=== PATIENT | male | born 1965 | race Caucasian/White ===

== ENCOUNTER 2016-11-17 16:41 | Emergency (ER) | payer MEDICARE, MEDICAID ==
[2016-11-17] MEDS ORDERED: Acetaminophen 500 MG Tab PO ONE (17:02)
[2016-11-17] MEDS ORDERED: Sodium Chloride 0.9% 1,000 ML IV ONE (17:02)
[2016-11-17] MEDS ORDERED: Sodium Chloride 0.9% 2.5 ML Syringe FLUSH PRN (17:02)
[2016-11-17] MEDS ORDERED: Sodium Chloride 0.9% 10 ML Syringe FLUSH PRN (17:02)
--- NOTE | 2016-11-17 17:04 | EDM.PDOC ---
ED HPI GENERAL MEDICAL PROBLEM - General Chief Complaint: Behavioral/Psych Stated Complaint: MENTAL/BEHAVIORAL ISSUES Time Seen by Provider: 11/17/16 16:54 - History of Present Illness INITIAL COMMENTS - FREE TEXT/NARRATIVE: HISTORY AND PHYSICAL: History of present illness: The patient is a 51-year-old male with a history of eld-kmyzryc-lbjzithqj diabetes hypercholesterolemia alcohol use schizophrenia who follows both in the clinic as well as with [facility] and presents today with feeling shaky, he feels like his head is spinning and he has sinus congestion and drainage, and he has a sore throat. The patient states he has had no chest pain shortness of breath abdominal pain vomiting or diarrhea and does admit that he does not hydrate 3 well and drinks mostly caffeinated products. The patient initially told triage she was concerned that one of his medications was causing him to feel like this because it was increased one month ago. He had been on the medication already and the dose was just adjusted. He said the symptoms just started 2 days ago. He says that when he blows his nose clear and white comes out and he feels like he has sinus pressure and frontal pressure. He has no earache and he feels like his glands are swollen in his neck. Patient has taken 2 baby aspirin prior to coming here and has not taken any other decongestants or use any meor-rbg-[id number] preps. The patient smokes cigarettes and has a history of alcohol use but has not had a drink in 2 weeks. Review of systems: As per history of present illness and below otherwise all systems reviewed and negative. Past medical history: As per history of present illness and as reviewed below otherwise noncontributory. Surgical history: As per history of present illness and as reviewed below otherwise noncontributory. Social history: No reported history of drug or alcohol abuse. Family history: As per history of present illness and as reviewed below otherwise noncontributory. Physical exam: General: Well-developed well-nourished man who smells of cigarette smoke and has poor dentition but is speaking clearly without breathlessness but has a nasal quality to his voice. His vital signs in triage have been noted by me HEENT: Atraumatic, normocephalic, pupils reactive, negative for conjunctival pallor or scleral icterus, mucous membranes tacky, throat clear of exudates but the posterior oropharynx exhibits some edema bilaterally with uvula midline and the erythema, the patient has cervical adenopathy anteriorly which is tender but no posterior adenopathy or nuchal rigidity, turbinates are boggy bilaterally but there is no overt sinus tenderness on palpation,, neck supple, nontender, trachea midline. Lungs: Clear to auscultation with occasional coarse breath sounds at the bases but no work or breathing, breath sounds equal bilaterally, chest nontender. Heart: S1S2, regular rhythm and tachycardic rate on my evaluation, negative for clicks, rubs, or JVD. Abdomen: Soft, nondistended, nontender. Negative for masses or hepatosplenomegaly. NABS Genitourinary: Deferred. Rectal: Deferred. Extremities: Atraumatic, negative for cords or calf pain. Neurovascular unremarkable. Neuro: Awake, alert, oriented. Cranial nerves II through XII unremarkable. Cerebellum unremarkable. Motor and sensory unremarkable throughout. Exam nonfocal. Patient is not exhibiting any signs of tremulousness Diagnostics: CBC CMP influenza rapid strep chest x-ray Therapeutics: Tylenol IV fluids Testing results were discussed with the patient including his influenza A. status and she will be given Tamiflu for home. I encouraged him to push hydration, avoid caffeinated products or at least reduce them, continue his home medications, take Tylenol/ibuprofen for fever. Repeat vitals were performed by the nurse and have been reviewed by me. Impression: Influenza A Definitive disposition and diagnosis as appropriate pending reevaluation and review of above. Headache Pain Score (Numeric/FACES): 10 - Related Data Allergies Allergy/AdvReac Type Severity Reaction Status Date / Time No Known Allergies Allergy Verified 11/17/16 16:55 Home Meds: Home Meds Aspirin [Adult Low Dose Aspirin EC] 81 mg PO BID 12/30/15 [History] Cholecalciferol (Vitamin D3) [Vitamin D3] 1,000 unit PO DAILY 12/30/15 [History] Glimepiride [Amaryl] 4 mg PO BID 12/30/15 [History] LORazepam [Ativan] 1 mg PO ASDIRECTED PRN 12/30/15 [History] Loratadine [Claritin] 10 mg PO DAILY 12/30/15 [History] Losartan Potassium [Cozaar] 50 mg PO DAILY 12/30/15 [History] Meloxicam 15 mg PO BEDTIME 12/30/15 [History] Mirtazapine [Remeron] 60 mg PO BEDTIME 12/30/15 [History] [place]-3/DHA/Epa/Fish Oil [Fish Oil] 1,200 mg PO DAILY 12/30/15 [History] SitaGLIPtin [Januvia] 100 mg PO DAILY 12/30/15 [History] atorvaSTATin Calcium [Atorvastatin Calcium] 10 mg PO DAILY 12/30/15 [History] metFORMIN HCl [Metformin HCl] 1,000 mg PO BID 12/30/15 [History] Gabapentin [Neurontin] 300 mg PO TID 11/17/16 [History] OLANZapine [ZyPREXA] 5 mg PO BID 11/17/16 [History] Past Medical History HEENT History: Reports: None Cardiovascular History: Reports: High cholesterol, Hypertension Respiratory History: Reports: None Gastrointestinal History: Reports: None Genitourinary History: Reports: None Musculoskeletal History: Reports: Arthritis Neurological History: Reports: None Psychiatric History: Reports: Anxiety, Depression, Mood swings, Psych Hospitalization(s), Schizophrenia, Suicidal ideation Endocrine/Metabolic History: Reports: Diabetes, type II Hematologic History: Reports: None Immunologic History: Reports: None Oncologic (Cancer) History: Reports: None Dermatologic History: Reports: None - Infectious Disease History Infectious Disease History: Reports: None - Past Surgical History Head Surgeries/Procedures: Reports: None HEENT Surgical History: Reports: None Cardiovascular Surgical History: Reports: None GI Surgical History: Reports: None Male Surgical History: Reports: None Endocrine Surgical History: Reports: None Neurological Surgical History: Reports: None Musculoskeletal Surgical History: Reports: None Dermatological Surgical History: Reports: None Social & Family History - Family History Family Medical History: Noncontributory - Tobacco Use Smoking Status *Q: Current Every Day Smoker Years of Tobacco use: 30 Packs/Tins Daily: 1 Second Hand Smoke Exposure: No - Caffeine Use Caffeine Use: Reports: None - Alcohol Use Days Per Week of Alcohol Use: 4 Number of Drinks Per Day: 12 Total Drinks Per Week: 48 - Recreational Drug Use Recreational Drug Use: No ED ROS GENERAL - Review of Systems Review Of Systems: ROS reveals no pertinent complaints other than HPI. ED EXAM, GENERAL - Physical Exam Exam: See Below (See dictation) Course - Vital Signs Last Recorded V/S: Last Vital Signs Temp 39.1 C H 11/17/16 17:20 Pulse 120 H 11/17/16 16:51 Resp 20 03/24/17 16:51 BP 140/78 11/17/16 16:51 Pulse Ox 98 11/17/16 16:51 - Orders/Labs/Meds Orders: Active Orders 24 hr Category Date Time Status Chest 2V [CR] Stat Exams 11/17/16 17:02 Taken CULTURE STREP A CONFIRMATION [RM] Stat Lab 11/17/16 17:15 Results STREP SCRN A RAPID W CULT CONF [RM] Stat Lab 11/17/16 17:15 Results Sodium Chloride 0.9% [Saline Flush] Med 11/17/16 17:02 Active 10 ml FLUSH ASDIRECTED PRN Sodium Chloride 0.9% [Saline Flush] Med 11/17/16 17:02 Active 2.5 ml FLUSH ASDIRECTED PRN Saline Lock Insert [OM.PC] Stat Oth 11/17/16 17:01 Ordered Medication Orders Sodium Chloride (Saline Flush) 10 ml FLUSH ASDIRECTED PRN PRN Reason: Keep Vein Open Sodium Chloride (Saline Flush) 2.5 ml FLUSH ASDIRECTED PRN PRN Reason: Keep Vein Open Labs: Laboratory Tests 11/17/16 11/17/16 Range/Units 17:15 17:15 WBC 10.96 (4.0-11.0) K/uL RBC 4.67 (4.50-5.90) M/uL Hgb 15.5 (13.0-17.0) g/dL Hct 44.7 (38.0-50.0) % MCV 95.7 (80.0-98.0) fL MCH 33.2 H (27.0-32.0) pg MCHC 34.7 (31.0-37.0) g/dL RDW Std Deviation 44.6 (28.0-62.0) fl RDW Coeff of Bibi 13 (11.0-15.0) % Plt Count 153 (150-400) K/uL MPV 10.40 (7.40-12.00) fL Neut % (Auto) 84.3 H (48.0-80.0) % Lymph % (Auto) 8.2 L (16.0-40.0) % Hunt % (Auto) 6.9 (0.0-15.0) % Eos % (Auto) 0.2 (0.0-7.0) % Baso % (Auto) 0.4 (0.0-1.5) % Neut # (Auto) 9.2 H (1.4-5.7) K/uL Lymph # (Auto) 0.9 (0.6-2.4) K/uL Hunt # (Auto) 0.8 (0.0-0.8) K/uL Eos # (Auto) 0.0 (0.0-0.7) K/uL Baso # (Auto) 0.0 (0.0-0.1) K/uL Nucleated RBC % 0.0 /100WBC Nucleated RBCs # 0 K/uL Sodium 138 (136-146) mmol/L Potassium 3.8 (3.5-5.1) mmol/L Chloride 98 (98-110) mmol/L Carbon Dioxide 26 (21-31) mmol/L BUN 16 (6.0-23.0) mg/dL Creatinine 1.5 (0.6-1.5) mg/dL Est Cr Clr Drug Dosing 62.60 mL/min Estimated GFR (MDRD) 49.0 ml/min Glucose 94 (60-110) mg/dL Calcium 9.9 (8.8-10.8) mg/dL Total Bilirubin 0.4 (0.1-1.5) mg/dL AST 16 (5-40) IU/L ALT 25 (8-54) IU/L Alkaline Phosphatase 86 (40-150) Total Protein 8.3 H (6.0-8.0) g/dL Albumin 4.9 (3.5-5.0) g/dL Globulin 3.4 (2.0-3.5) g/dL Albumin/Globulin Ratio 1.4 (1.3-2.8) Meds: Medications Generic Name Dose Route Start Last Admin Trade Name Freq PRN Reason Stop Dose Admin Sodium Chloride 10 ml 11/17/16 17:02 Saline Flush FLUSH ASDIRECTED PRN Keep Vein Open Sodium Chloride 2.5 ml 11/17/16 17:02 Saline Flush FLUSH ASDIRECTED PRN Keep Vein Open Discontinued Medications Generic Name Dose Route Start Last Admin Trade Name Freq PRN Reason Stop Dose Admin Acetaminophen 1,000 mg 11/17/16 17:02 11/17/16 17:20 Tylenol Extra Strength PO 11/17/16 17:03 1,000 mg ONETIME ONE Administration Sodium Chloride 1,000 mls @ 999 mls/hr 11/17/16 17:02 11/17/16 17:09 Normal Saline IV 11/17/16 18:02 999 mls/hr STAT ONE Administration Departure - Departure Time of Disposition: 18:10 Disposition: Home, Self-Care 01 Condition: good Clinical Impression: Influenza A Forms: ED Department Discharge Additional Instructions: The following information is given to patients seen in the emergency department who are being discharged to home. This information is to outline your options for follow-up care. We provide all patients seen in our emergency department with a follow-up referral. The need for follow-up, as well as the timing and circumstances, are variable depending upon the specifics of your emergency department visit. If you don't have a primary care physician on staff, we will provide you with a referral. We always advise you to contact your personal physician following an emergency department visit to inform them of the circumstance of the visit and for follow-up with them and/or the need for any referrals to a consulting specialist. The emergency department will also refer you to a specialist when appropriate. This referral assures that you have the opportunity for followup care with a specialist. All of these measure are taken in an effort to provide you with optimal care, which includes your followup. Under all circumstances we always encourage you to contact your private physician who remains a resource for coordinating your care. When calling for followup care, please make the office aware that this follow-up is from your recent emergency room visit. If for any reason you are refused follow-up, please contact the [facility] emergency department at and ask to speak to the emergency department charge nurse. [facility] Primary care- Internal Medicine and Family [place] [phone] Please push hydration and try to reduce or avoid caffeine intake, use over-the- counter Tylenol/ibuprofen for fevers and take Tamiflu as prescribed. Please continue all other home medications as before and follow up with primary care Sunday or Sunday. Please return to ER as needed and as discussed - My Orders Last 24 Hours: My Active Orders 11/17/16 17:01 Saline Lock Insert [OM.PC] Stat 11/17/16 17:02 Chest 2V [CR] Stat Sodium Chloride 0.9% [Saline Flush] 10 ml FLUSH ASDIRECTED PRN Sodium Chloride 0.9% [Saline Flush] 2.5 ml FLUSH ASDIRECTED PRN 11/17/16 17:15 CULTURE STREP A CONFIRMATION [RM] Stat STREP SCRN A RAPID W CULT CONF [RM] Stat - Assessment/Plan Last 24 Hours: My Active Orders 11/17/16 17:01 Saline Lock Insert [OM.PC] Stat 11/17/16 17:02 Chest 2V [CR] Stat Sodium Chloride 0.9% [Saline Flush] 10 ml FLUSH ASDIRECTED PRN Sodium Chloride 0.9% [Saline Flush] 2.5 ml FLUSH ASDIRECTED PRN 11/17/16 17:15 CULTURE STREP A CONFIRMATION [RM] Stat STREP SCRN A RAPID W CULT CONF [RM] Stat
[2016-11-17 18:30] VITALS: BP 106/66
--- NOTE | 2016-11-20 15:12 | CR ---
EXAM DATE: 11/17/16 PATIENT'S AGE: 51 [facility] Facility: [place], [place] Site . Site : [id number] Study: XRay Chest [id number] 5:38:24 PM Ordering Physician: Doctor Driver Final Report: INDICATION: Head and sinus pressure. Medication change. COMPARISON: 04/02/2016. FINDINGS/IMPRESSION: No acute pulmonary infiltrates or other acute intrathoracic abnormalities. Unchanged mild prominence of lung volumes. Normal heart size and pulmonary vasculature. No pleural effusions. Chronic right midshaft clavicle fracture, unchanged. Dictated by Kris Nevarez MD @ 11/17/2016 6:00:11 PM Dictated by: Kris Nevarez MD @ 11/17/2016 18:00:44 (Electronic Signature) Report Signed by Proxy and Original Signed Document filed in the Medical Record. [email or web address]
== END 2016-11-17 18:26 | disposition home or self-care (01) ==
LOC: MW.ED 16:41
DX: J09.X2 Influenza due to identified novel influenza A virus with other respiratory manifestations (principal); M84.411A Pathological fracture, right shoulder, initial encounter for fracture; F17.210 Nicotine dependence, cigarettes, uncomplicated; E78.00 Pure hypercholesterolemia, unspecified; I10 Essential (primary) hypertension; Z79.82 Long term (current) use of aspirin; Z79.899 Other long term (current) drug therapy; M19.90 Unspecified osteoarthritis, unspecified site; F41.9 Anxiety disorder, unspecified; F32.9 Major depressive disorder, single episode, unspecified; E11.9 Type 2 diabetes mellitus without complications; Z79.84 Long term (current) use of oral hypoglycemic drugs
CPT/HCPCS: 36415; 71020; 80053; 85025; 87081; 87804; 87880; 96360; 99284; A9270; J7040; 99283

== ENCOUNTER 2017-03-15 13:30 | Emergency (ER) | payer MEDICARE, MEDICAID ==
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
[2017-03-15 15:14] LABS: CHLORIDE,CL 102 mmol/L (98-110); SODIUM,NA 140 mmol/L (136-146)
[2017-03-15] MEDS ORDERED: Iopamidol 755 MG/ML 500 ML Multipack Bottle IVPUSH STA (16:19)
--- NOTE | 2017-03-15 16:39 | CT ---
EXAMINATION: CT chest with contrast HISTORY: Trauma COMPARISON: None TECHNIQUE: Axial CT images obtained through the chest following the administration of 75 mL of Isovu e-370 left hand. Coronal and sagittal reconstructions obtained. FINDINGS: The lungs are clear without focal consolidation. There is a trace pneumothorax along the a nterior aspect of the left chest. There is a small left pleural effusion. The heart is normal in siz e without a significant pericardial effusion. No mediastinal or hilar lymphadenopathy. Mild coronary artery calcifications noted. The central airways are clear. The visualized images of the upper abdomen appear grossly unremarkable. There is prominent subcutaneous emphysema over the anterior to left aspect of the chest. There is a minimally displaced left fourth rib fracture noted. Nondisplaced left fifth and sixth rib fractures also noted. IMPRESSION: 1. Several left anterolateral rib fractures with a minimal left pneumothorax anteriorly. 2. Prominent subcutaneous emphysema along the anterior and left lateral thorax. This extends slightl y into the inferior neck. 3. Trace left pleural effusion.
[2017-03-15 17:17] VITALS: BP 158/85
== END 2017-03-15 17:05 | disposition home or self-care (01) ==
LOC: MW.ED 13:30
DX: S27.0XXA Traumatic pneumothorax, initial encounter (principal); S22.42XA Multiple fractures of ribs, left side, initial encounter for closed fracture; I10 Essential (primary) hypertension; E78.00 Pure hypercholesterolemia, unspecified; M19.90 Unspecified osteoarthritis, unspecified site; F41.9 Anxiety disorder, unspecified; E11.9 Type 2 diabetes mellitus without complications; F17.210 Nicotine dependence, cigarettes, uncomplicated; Z79.84 Long term (current) use of oral hypoglycemic drugs; Z79.899 Other long term (current) drug therapy; V29.88XA Motorcycle rider (driver) (passenger) injured in other specified transport accidents, initial encounter; Y92.410 Unspecified street and highway as the place of occurrence of the external cause; E78.5 Hyperlipidemia, unspecified; R07.81 Pleurodynia; R07.9 Chest pain, unspecified; J98.2 Interstitial emphysema
CPT/HCPCS: 36415; 71020; 71260; 80053; 80061; 82044; 83036; 85025; 99284; G0463; Q9967; 99283

== ENCOUNTER 2017-03-30 09:55 | Emergency (ER) | payer MEDICARE, MEDICAID ==
--- NOTE | 2017-03-30 10:51 | CR ---
EXAMINATION: Two-view chest (PA and Lateral views). HISTORY: Pain. Comparison: 03/15/2017. FINDINGS: The trachea is midline. The cardiomediastinal silhouette is within normal limits. No pulmonary infil trates, effusions or pneumothorax. Degenerative changes are noted within the right shoulder. IMPRESSION: No acute cardiopulmonary process.
[2017-03-30] MEDS ORDERED: Ketorolac 60 MG/2 ML SDV IM ONE (10:58)
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
[2017-03-30 11:26] VITALS: BP 136/70
== END 2017-03-30 11:26 | disposition home or self-care (01) ==
LOC: MW.ED 09:55
DX: R07.81 Pleurodynia (principal); E11.8 Type 2 diabetes mellitus with unspecified complications; E78.00 Pure hypercholesterolemia, unspecified; I10 Essential (primary) hypertension; F41.9 Anxiety disorder, unspecified; F32.9 Major depressive disorder, single episode, unspecified; F17.210 Nicotine dependence, cigarettes, uncomplicated; Z79.82 Long term (current) use of aspirin; Z79.899 Other long term (current) drug therapy; Z79.84 Long term (current) use of oral hypoglycemic drugs
CPT/HCPCS: 71020; 93005; 96372; 99285; J1885; 99283

== ENCOUNTER 2018-09-20 08:49 | Emergency (ER) | payer MEDICARE, MEDICAID ==
--- NOTE | 2018-09-20 08:54 | EDM.PDOC ---
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 stating that he was suicidal he does not have a plan at this time He denies history of previous suicide ideation or attempt, he does not go into detail on why he is suicidal today, he notes that he was drinking a little bit yesterday he admits to drinking 6 beers last alcohol intake is 3 PM according to the patient No fever nausea vomiting chills sweats no chest pain shortness breath headache dizziness or palpitation no bowel or urine symptoms History of bipolar disorder, he denies previous inpatient psychiatric evaluation or suicide attempt or ideation for that matter ] Review of systems: As per history of present illness and below otherwise all systems reviewed and negative. Past medical history: As per history of present illness and as reviewed below otherwise noncontributory. Surgical history: As per history of present illness and as reviewed below otherwise noncontributory. Social history: No reported history of drug or alcohol abuse. Family history: As per history of present illness and as reviewed below otherwise noncontributory. Physical exam: HEENT: Atraumatic, normocephalic, pupils reactive, negative for conjunctival pallor or scleral icterus, mucous membranes moist, throat clear, neck supple, nontender, trachea midline. Lungs: Clear to auscultation, breath sounds equal bilaterally, chest nontender. Heart: S1S2, regular, negative for clicks, rubs, or JVD. Abdomen: Soft, nondistended, nontender. Negative for masses or hepatosplenomegaly. Negative for costovertebral tenderness. Pelvis: Stable nontender. Genitourinary: Deferred. Rectal: Deferred. Extremities: Atraumatic, negative for cords or calf pain. Neurovascular unremarkable. Neuro: Awake, alert, oriented. Cranial nerves II through XII unremarkable. Cerebellum unremarkable. Motor and sensory unremarkable throughout. Exam nonfocal. Diagnostics: [CBC CMP UA troponin INR TSH drug screen aspirin Tylenol levels alcohol level Chest 1 view EKG ] Therapeutics: [Ativan 2 mg by mouth now Discussed with Dr. 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 to his antibiotics accepted care will place old on him and provide transferred via ground ] Impression: Suicidal ideation History of bipolar disorder ] Definitive disposition and diagnosis as appropriate pending reevaluation and review of above. - Related Data Allergies Allergy/AdvReac Type Severity Reaction Status Date / Time No Known Allergies Allergy Verified 09/20/18 09:04 Home Meds: Home Meds Aspirin [Adult Low Dose Aspirin EC] 81 mg PO BID 12/30/15 [History] Cholecalciferol (Vitamin D3) [Vitamin D3] 1,000 unit PO DAILY 12/30/15 [History] Glimepiride [Amaryl] 4 mg PO BID 12/30/15 [History] LORazepam [Ativan] 1 mg PO DAILY@12 PRN 12/30/15 [History] Loratadine [Claritin] 10 mg PO DAILY 12/30/15 [History] Losartan Potassium [Cozaar] 50 mg PO DAILY 12/30/15 [History] Meloxicam 15 mg PO BEDTIME 12/30/15 [History] SitaGLIPtin [Januvia] 100 mg PO DAILY 12/30/15 [History] atorvaSTATin Calcium [Atorvastatin Calcium] 20 mg PO BEDTIME 12/30/15 [History] metFORMIN HCl [Metformin HCl] 1,000 mg PO BID 12/30/15 [History] Gabapentin [Neurontin] 300 mg PO TID 11/17/16 [History] Hydrochlorothiazide 25 mg PO DAILY 03/15/17 [History] LORazepam [Ativan] 0.5 mg PO DAILY 03/30/17 [History] Mirtazapine 45 mg PO BEDTIME 03/30/17 [History] OLANZapine [ZyPREXA] 10 mg PO BID 03/30/17 [History] traZODone HCl [Trazodone HCl] 100 mg PO BEDTIME 03/30/17 [History] QUEtiapine [SEROquel] 75 mg PO TID 07/26/18 [History] amLODIPine [Norvasc] 5 mg PO DAILY 07/26/18 [History] Levofloxacin [Levaquin] 500 mg PO DAILY #30 tablet 07/28/18 [Rx] Past Medical History HEENT History: Reports: None Cardiovascular History: Reports: High Cholesterol, Hypertension Respiratory History: Reports: None Gastrointestinal History: Reports: None Genitourinary History: Reports: None Musculoskeletal History: Reports: Arthritis Neurological History: Reports: None Psychiatric History: Reports: Anxiety, Depression, Mood Swings, Psych Hospitalization(s), Schizophrenia, Suicidal Ideation Endocrine/Metabolic History: Reports: Diabetes, Type II, Obesity/BMI 30+ Hematologic History: Reports: None Immunologic History: Reports: None Oncologic (Cancer) History: Reports: None Dermatologic History: Reports: None - Infectious Disease History Infectious Disease History: Reports: Chicken Pox - Past Surgical History Head Surgeries/Procedures: Reports: None HEENT Surgical History: Reports: None Cardiovascular Surgical History: Reports: None GI Surgical History: Reports: None Male Surgical History: Reports: None Endocrine Surgical History: Reports: None Neurological Surgical History: Reports: None Musculoskeletal Surgical History: Reports: None Dermatological Surgical History: Reports: None Social & Family History - Family History Family Medical History: Noncontributory - Caffeine Use Caffeine Use: Reports: Coffee, Soda Caffeine Use Comment: 1-2 cups per day - Living Situation & Occupation Living situation: Reports: Alone Occupation: Disabled ED ROS GENERAL - Review of Systems Review Of Systems: See Below ED EXAM, GENERAL - Physical Exam Exam: See Below Course - Vital Signs Last Recorded V/S: Last Vital Signs Temp 96.8 F 09/20/18 09:05 Pulse 99 09/20/18 09:05 Resp 18 09/20/18 09:05 BP 175/108 H 09/20/18 09:05 Pulse Ox 97 09/20/18 09:05 - Orders/Labs/Meds Orders: Active Orders 24 hr Category Date Time Status EKG Documentation Completion [RC] STAT Care 09/20/18 08:58 Active Labs: Laboratory Tests 09/20/18 09/20/18 09/20/18 Range/Units 09:08 09:08 09:08 WBC 12.27 H (4.0-11.0) K/uL RBC 4.42 L (4.50-5.90) M/uL Hgb 14.8 (13.0-17.0) g/dL Hct 42.4 (38.0-50.0) % MCV 95.9 (80.0-98.0) fL MCH 33.5 H (27.0-32.0) pg MCHC 34.9 (31.0-37.0) g/dL RDW Std Deviation 48.3 (28.0-62.0) fl RDW Coeff of Bibi 14 (11.0-15.0) % Plt Count 229 (150-400) K/uL MPV 10.60 (7.40-12.00) fL Neut % (Auto) 69.3 (48.0-80.0) % Lymph % (Auto) 23.6 (16.0-40.0) % [place] % (Auto) 5.4 (0.0-15.0) % Eos % (Auto) 1.2 (0.0-7.0) % Baso % (Auto) 0.5 (0.0-1.5) % Neut # (Auto) 8.5 H (1.4-5.7) K/uL Lymph # (Auto) 2.9 H (0.6-2.4) K/uL [place] # (Auto) 0.7 (0.0-0.8) K/uL Eos # (Auto) 0.2 (0.0-0.7) K/uL Baso # (Auto) 0.1 (0.0-0.1) K/uL Nucleated RBC % 0.0 /100WBC Nucleated RBCs # 0 K/uL INR 1.03 Sodium 137 (136-148) mmol/L Potassium 3.9 (3.5-5.1) mmol/L Chloride 99 (98-107) mmol/L Carbon Dioxide 25.2 (21.0-32.0) mmol/L BUN 7 (7.0-18.0) mg/dL Creatinine 1.3 (0.8-1.3) mg/dL Est Cr Clr Drug Dosing TNP Estimated GFR (MDRD) 57.3 ml/min Glucose 157 H (74-106) mg/dL Calcium 10.3 H (8.5-10.1) mg/dL Total Bilirubin 0.3 (0.2-1.0) mg/dL AST 27 (15-37) IU/L ALT 88 H (14-63) IU/L Alkaline Phosphatase 97 (46-116) U/L Troponin I < 0.050 (0.000-0.056) ng/mL Total Protein 8.1 (6.4-8.2) g/dL Albumin 4.3 (3.4-5.0) g/dL Globulin 3.8 (2.6-4.0) g/dL Albumin/Globulin Ratio 1.1 (0.9-1.6) TSH 3rd Generation 0.79 (0.36-3.74) uIU/mL Urine Color Urine Appearance Urine pH (5.0-8.0) Ur Specific [place] (1.001-1.035) Urine Protein (NEGATIVE) mg/dL Urine Glucose (UA) (NEGATIVE) mg/dL Urine Ketones (NEGATIVE) mg/dL Urine Occult Blood (NEGATIVE) Urine Nitrite (NEGATIVE) Urine Bilirubin (NEGATIVE) Urine Urobilinogen (<2.0) EU/dL Ur Leukocyte Esterase (NEGATIVE) Salicylates 3.9 (0-20) mg/dL Urine Opiates Screen (NEGATIVE) Ur Oxycodone Screen (NEGATIVE) Urine Methadone Screen (NEGATIVE) Acetaminophen < 2.0 ug/mL Ur Barbiturates Screen (NEGATIVE) Ur Phencyclidine Scrn (NEGATIVE) Ur Amphetamine Screen (NEGATIVE) U Methamphetamines Scrn (NEGATIVE) U Benzodiazepines Scrn (NEGATIVE) U Cocaine Metab Screen (NEGATIVE) U Marijuana (THC) Screen (NEGATIVE) Ethyl Alcohol <3 mg/dL 09/20/18 09/20/18 Range/Units 09:27 09:27 WBC (4.0-11.0) K/uL RBC (4.50-5.90) M/uL Hgb (13.0-17.0) g/dL Hct (38.0-50.0) % MCV (80.0-98.0) fL MCH (27.0-32.0) pg MCHC (31.0-37.0) g/dL RDW Std Deviation (28.0-62.0) fl RDW Coeff of Bibi (11.0-15.0) % Plt Count (150-400) K/uL MPV (7.40-12.00) fL Neut % (Auto) (48.0-80.0) % Lymph % (Auto) (16.0-40.0) % [place] % (Auto) (0.0-15.0) % Eos % (Auto) (0.0-7.0) % Baso % (Auto) (0.0-1.5) % Neut # (Auto) (1.4-5.7) K/uL Lymph # (Auto) (0.6-2.4) K/uL [place] # (Auto) (0.0-0.8) K/uL Eos # (Auto) (0.0-0.7) K/uL Baso # (Auto) (0.0-0.1) K/uL Nucleated RBC % /100WBC Nucleated RBCs # K/uL INR Sodium (136-148) mmol/L Potassium (3.5-5.1) mmol/L Chloride (98-107) mmol/L Carbon Dioxide (21.0-32.0) mmol/L BUN (7.0-18.0) mg/dL Creatinine (0.8-1.3) mg/dL Est Cr Clr Drug Dosing Estimated GFR (MDRD) ml/min Glucose (74-106) mg/dL Calcium (8.5-10.1) mg/dL Total Bilirubin (0.2-1.0) mg/dL AST (15-37) IU/L ALT (14-63) IU/L Alkaline Phosphatase (46-116) U/L Troponin I (0.000-0.056) ng/mL Total Protein (6.4-8.2) g/dL Albumin (3.4-5.0) g/dL Globulin (2.6-4.0) g/dL Albumin/Globulin Ratio (0.9-1.6) TSH 3rd Generation (0.36-3.74) uIU/mL Urine Color YELLOW Urine Appearance CLEAR Urine pH 6.0 (5.0-8.0) Ur Specific [place] 1.020 (1.001-1.035) Urine Protein NEGATIVE (NEGATIVE) mg/dL Urine Glucose (UA) NEGATIVE (NEGATIVE) mg/dL Urine Ketones NEGATIVE (NEGATIVE) mg/dL Urine Occult Blood NEGATIVE (NEGATIVE) Urine Nitrite NEGATIVE (NEGATIVE) Urine Bilirubin NEGATIVE (NEGATIVE) Urine Urobilinogen 0.2 (<2.0) EU/dL Ur Leukocyte Esterase NEGATIVE (NEGATIVE) Salicylates (0-20) mg/dL Urine Opiates Screen NEGATIVE (NEGATIVE) Ur Oxycodone Screen NEGATIVE (NEGATIVE) Urine Methadone Screen NEGATIVE (NEGATIVE) Acetaminophen ug/mL Ur Barbiturates Screen NEGATIVE (NEGATIVE) Ur Phencyclidine Scrn NEGATIVE (NEGATIVE) Ur Amphetamine Screen NEGATIVE (NEGATIVE) U Methamphetamines Scrn NEGATIVE (NEGATIVE) U Benzodiazepines Scrn NEGATIVE (NEGATIVE) U Cocaine Metab Screen NEGATIVE (NEGATIVE) U Marijuana (THC) Screen NEGATIVE (NEGATIVE) Ethyl Alcohol mg/dL Meds: Medications Discontinued Medications Generic Name Dose Route Start Last Admin Trade Name Donato PRN Reason Stop Dose Admin Lorazepam 1 mg 09/20/18 09:36 09/20/18 09:57 Ativan PO 09/20/18 09:37 1 mg ONETIME ONE Administration Departure - Departure Time of Disposition: 10:26 Disposition: DC/Tfer to Psych Hosp/Unit 65 Condition: Good Clinical Impression: Depressive disorder, Suicidal ideation - Discharge Information Referrals: PCP,None [Primary Care Provider] - - My Orders Last 24 Hours: My Active Orders 09/20/18 08:58 EKG Documentation Completion [RC] STAT - Assessment/Plan Last 24 Hours: My Active Orders 09/20/18 08:58 EKG Documentation Completion [RC] STAT
[2018-09-20 09:15] VITALS: BP 175/108
[2018-09-20] MEDS ORDERED: LORazepam 1 MG Tab PO ONE (09:36)
--- NOTE | 2018-09-20 09:39 | CR ---
EXAMINATION: Portable chest radiograph. HISTORY: Pain. Comparison: 07/26/2018. FINDINGS: The trachea is midline. The cardiomediastinal silhouette is within normal limits. No pulmonary infiltrates, effusions or pneumothorax. Mild atelectasis/scarring within the left lung base. Osseous structures appear unremarkable. Old right clavicle injury. IMPRESSION: No acute cardiopulmonary process.
[2018-09-20 10:07] LABS: CHLORIDE,CL 99 mmol/L (98-107); SODIUM,NA 137 mmol/L (136-148)
[2018-09-20 10:08] LABS: ACETAMINOPHEN < 2.0 ug/mL
== END 2018-09-20 11:20 ==
LOC: MW.ED 08:49
DX: F32.9 Major depressive disorder, single episode, unspecified (principal); R45.851 Suicidal ideations; F41.9 Anxiety disorder, unspecified; I10 Essential (primary) hypertension; E11.9 Type 2 diabetes mellitus without complications; E78.00 Pure hypercholesterolemia, unspecified; Z79.82 Long term (current) use of aspirin; Z79.899 Other long term (current) drug therapy; Z79.84 Long term (current) use of oral hypoglycemic drugs
CPT/HCPCS: 36415; 71045; 80053; 80305; 81003; 84443; 84484; 85025; 85610; 93005; 99285; A9270; G0480

== ENCOUNTER 2019-01-14 18:02 | Observation (INO) | payer MEDICARE, MEDICAID ==
[2019-01-14] MEDS ORDERED: Sodium Chloride 0.9% 1,000 ML IV ONE (18:08)
[2019-01-14] MEDS ORDERED: Ondansetron 4 MG/2 ML SDV ONE (18:09)
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
[2019-01-14 18:49] LABS: CHLORIDE,CL 102 mmol/L (98-107); SODIUM,NA 142 mmol/L (136-148)
--- NOTE | 2019-01-14 19:50 | CR ---
CHEST 1 VIEW AP INDICATION: Fall COMPARISON: Portable chest August 2018 IMPRESSION: Stable heart size and vascular pattern.The lungs show some incidental minimal areas of basilar scarring and a minimal area of left basilar platelike atelectasis near the costophrenic angle. Overlying gambling monitor leads. Lungs are clear of new focal opacities. There is a stable previous fracture of the right mid clavicle. No pneumothorax. Dictated by Lizandro Edward MD @ Jan 14 2019 7:49PM Signed by Dr. Lizandro Edward @ Jan 14 2019 7:49PM
--- NOTE | 2019-01-14 19:52 | CR ---
INDICATION : Trauma TECHNIQUE : Single AP portable view of the pelvis IMPRESSION : No acute pelvic fracture FINDINGS: Symmetric hip joints no fractures. Surgical clips in the pelvis as well as calcification which could be related to the vas deferens. Dictated by Lizandro Edward MD @ Jan 14 2019 7:49PM Signed by Dr. Lizandro Edward @ Jan 14 2019 7:50PM
--- NOTE | 2019-01-14 19:55 | CT ---
INDICATION: Injury. Pain TECHNIQUE: CT head without contrast. COMPARISON: None available FINDINGS: There is mild cerebral and cerebellar cortical atrophy. The ventricles are within normal limits for the patient`s age. There is no mass effect or midline shift. There is small amount of subarachnoid hemorrhage in the left frontal lobe. There is no loss of miller-white differentiation. There is a chronic left orbital floor fracture deformity. No acute calvarial fracture is seen. A right supraorbital and preseptal hematoma is seen. There is a small mucosal retention cyst or polyp in the posterior aspect of the right frontal sinus inferior recess. There is apparent opacification of few right mastoid tip air cells. The orbital contents appear symmetrical. A 1.8 x 1.5 cm ovoid soft tissue density is seen in the right parotid gland. IMPRESSION: Small left frontal subarachnoid hemorrhage. A right supraorbital and preseptal hematoma. A 1.8 cm right parotid soft tissue lesion could represent a primary neoplasm or an enlarged lymph node. Recommend further evaluation. The pertinent findings were discussed with Dr. Chavez, by phone, on 01/14/2019 at 7:50 p.m.. Dictated by Lance Peterson MD @ 01/14/2019 7:53:04 PM Please note that all CT scans at this facility use dose modulation, iterative reconstruction, and/or weight-based dosing when appropriate to reduce radiation dose to as low as reasonably achievable. Dictated by: Lance Peterson MD @ 01/14/2019 19:53:10 (Electronically Signed)
--- NOTE | 2019-01-14 19:59 | CT ---
INDICATION: Fall. Pain TECHNIQUE: CT cervical spine without contrast. COMPARISON: None available FINDINGS: There is mild motion artifact. The cervical spine alignment is maintained. The craniocervical and atlantoaxial alignments are near anatomical. There is no evidence of a gross acute cervical spine fracture. There is no significant precervical soft tissue swelling. Degenerative changes are noted. IMPRESSION: No evidence of a gross acute cervical spine fracture. Dictated by Lance Peterson MD @ 01/14/2019 7:58:38 PM Please note that all CT scans at this facility use dose modulation, iterative reconstruction, and/or weight-based dosing when appropriate to reduce radiation dose to as low as reasonably achievable. Dictated by: Lance Peterson MD @ 01/14/2019 19:58:43 (Electronically Signed)
--- NOTE | 2019-01-14 20:05 | CT ---
INDICATION: Injury TECHNIQUE: CT maxillofacial without contrast. COMPARISON: None available FINDINGS: There is a chronic left orbital floor fracture deformity. No acute facial bone fracture is seen. There is a right preseptal and supraorbital hematoma. The orbital contents, otherwise, appear grossly symmetrical. There is a 1.9 x 1.6 x 2.4 cm ovoid soft tissue lesion in the right parotid gland. No paranasal sinus air-fluid levels are seen. There are foci of slight paranasal sinus mucosal thickening as well as small mucosal retention cysts in the right frontal sinus inferior recess and right sphenoid sinus. IMPRESSION: No evidence of an acute facial bone fracture. A chronic left orbital floor fracture deformity. A 2.4 cm right parotid gland soft tissue lesion. Neoplasm should be excluded. Recommend followup imaging evaluation with contrast MRI. Dictated by Lance Peterson MD @ 01/14/2019 8:04:22 PM Please note that all CT scans at this facility use dose modulation, iterative reconstruction, and/or weight-based dosing when appropriate to reduce radiation dose to as low as reasonably achievable. Dictated by: Lance Peterson MD @ 01/14/2019 20:04:46 (Electronically Signed)
--- NOTE | 2019-01-14 20:39 | PCM.HP ---
H&P History of Present Illness - General Date of Service: 01/14/19 Admit Problem/Dx: Admission Diagnosis/Problem Admission Diagnosis/Problem Head injury with loss of consciousness Source of Information: Patient History Limitations: Reports: No Limitations - History of Present Illness Initial Comments - Free Text/Narative: Patient is a 53yo male with a history of alcohol abuse, mental health issues, diabetes mellitus and "heart issues" who presents after fall. He was reportedly driving, pulled over then He was brought in by EMS. He does not remember falling. He was drinking today. His etoh level was 283. He had a large bruise over his right eyebrow. He complains of soreness over this area as well as some mild lower right chest pain. He denies any paresthesias. He is oriented x 4. He denies loss of motor function. - Related Data Allergies/Adverse Reactions: Allergies Allergy/AdvReac Type Severity Reaction Status Date / Time No Known Allergies Allergy Verified 09/20/18 09:04 Home Medications: Home Meds Aspirin [Adult Low Dose Aspirin EC] 81 mg PO BID 12/30/15 [History] Cholecalciferol (Vitamin D3) [Vitamin D3] 1,000 unit PO DAILY 12/30/15 [History] Glimepiride [Amaryl] 4 mg PO BID 12/30/15 [History] LORazepam [Ativan] 1 mg PO DAILY@12 PRN 12/30/15 [History] Loratadine [Claritin] 10 mg PO DAILY 12/30/15 [History] Losartan Potassium [Cozaar] 50 mg PO DAILY 12/30/15 [History] Meloxicam 15 mg PO BEDTIME 12/30/15 [History] SitaGLIPtin [Januvia] 100 mg PO DAILY 12/30/15 [History] atorvaSTATin Calcium [Atorvastatin Calcium] 20 mg PO BEDTIME 12/30/15 [History] metFORMIN HCl [Metformin HCl] 1,000 mg PO BID 12/30/15 [History] Gabapentin [Neurontin] 300 mg PO TID 11/17/16 [History] Hydrochlorothiazide 25 mg PO DAILY 03/15/17 [History] LORazepam [Ativan] 0.5 mg PO DAILY 03/30/17 [History] Mirtazapine 45 mg PO BEDTIME 03/30/17 [History] OLANZapine [ZyPREXA] 10 mg PO BID 03/30/17 [History] traZODone HCl [Trazodone HCl] 100 mg PO BEDTIME 03/30/17 [History] QUEtiapine [SEROquel] 75 mg PO TID 07/26/18 [History] amLODIPine [Norvasc] 5 mg PO DAILY 07/26/18 [History] Levofloxacin [Levaquin] 500 mg PO DAILY #30 tablet 07/28/18 [Rx] Past Medical History HEENT History: Reports: None Cardiovascular History: Reports: High Cholesterol, Hypertension Respiratory History: Reports: None Gastrointestinal History: Reports: None Genitourinary History: Reports: None Musculoskeletal History: Reports: Arthritis Neurological History: Reports: None Psychiatric History: Reports: Anxiety, Depression, Mood Swings, Psych Hospitalization(s), Schizophrenia, Suicidal Ideation Endocrine/Metabolic History: Reports: Diabetes, Type II, Obesity/BMI 30+ Hematologic History: Reports: None Immunologic History: Reports: None Oncologic (Cancer) History: Reports: None Dermatologic History: Reports: None - Infectious Disease History Infectious Disease History: Reports: Chicken Pox - Past Surgical History Head Surgeries/Procedures: Reports: None HEENT Surgical History: Reports: None Cardiovascular Surgical History: Reports: None GI Surgical History: Reports: Hernia Repair/Other Male Surgical History: Reports: None Endocrine Surgical History: Reports: None Neurological Surgical History: Reports: None Musculoskeletal Surgical History: Reports: None Dermatological Surgical History: Reports: None Social & Family History - Family History Family Medical History: Noncontributory - Caffeine Use Caffeine Use: Reports: Coffee, Soda Caffeine Use Comment: 1-2 cups per day - Living Situation & Occupation Living situation: Reports: Alone Occupation: Disabled H&P Review of Systems - Review of Systems: Review Of Systems: ROS reveals no pertinent complaints other than HPI. Exam - Exam Exam: See Below - Exam Quality Assessment: Supplemental Oxygen, Central Line/PICC General: Alert, Oriented, Cooperative, Other (Is slurring words ) HEENT: Conjunctiva Clear, EACs Clear, EOMI, Hearing Intact, Mucosa Moist & [place] , Nares Patent, Posterior Pharynx Clear, Pupils Equal, Pupils Reactive, TMs Clear, Other (Nasal septum with small amount of blood staining in left nares. Large hematoma over right eyebrow. ) Neck: Supple, Trachea Midline Lungs: Clear to Auscultation, Normal Respiratory Effort Cardiovascular: Regular Rate, Regular Rhythm GI/Abdominal Exam: Soft, Non-Tender, No Distention, No Mass (Male) Exam: No Hernia, Normal Inspection Back Exam: Normal Inspection, Full Range of Motion, Other (superficial abrasion over right shoulder ) Extremities: Normal Inspection, Normal Range of Motion, Non-Tender, No Pedal Edema, Normal Capillary Refill Skin: Warm, Dry, Intact Neurological: Cranial Nerves Intact, Reflexes Equal Bilateral Neuro Extensive - Mental Status: Alert, Oriented x3, Normal Mood/Affect, Normal Cognition Neuro Extensive - Motor, Sensory, Reflexes: No: Motor/Sensory Deficits Psychiatric: Alert, Normal Affect, Normal Mood - Patient Data Lab Results Last 24 hrs: Laboratory Results - last 24 hr 01/14/19 01/14/19 01/14/19 Range/Units 17:45 17:45 18:14 WBC 8.16 (4.0-11.0) K/uL RBC 4.51 (4.50-5.90) M/uL Hgb 14.6 (13.0-17.0) g/dL Hct 44.1 (38.0-50.0) % MCV 97.8 (80.0-98.0) fL MCH 32.4 H (27.0-32.0) pg MCHC 33.1 (31.0-37.0) g/dL RDW Std Deviation 47.3 (28.0-62.0) fl RDW Coeff of Bibi 13 (11.0-15.0) % Plt Count 209 (150-400) K/uL MPV 10.50 (7.40-12.00) fL Neut % (Auto) 57.0 (48.0-80.0) % Lymph % (Auto) 35.2 (16.0-40.0) % [place] % (Auto) 4.7 (0.0-15.0) % Eos % (Auto) 2.0 (0.0-7.0) % Baso % (Auto) 1.1 (0.0-1.5) % Neut # (Auto) 4.7 (1.4-5.7) K/uL Lymph # (Auto) 2.9 H (0.6-2.4) K/uL Braxton # (Auto) 0.4 (0.0-0.8) K/uL Eos # (Auto) 0.2 (0.0-0.7) K/uL Baso # (Auto) 0.1 (0.0-0.1) K/uL Nucleated RBC % 0.0 /100WBC Nucleated RBCs # 0 K/uL INR Sodium (136-148) mmol/L Potassium (3.5-5.1) mmol/L Chloride (98-107) mmol/L Carbon Dioxide (21.0-32.0) mmol/L BUN (7.0-18.0) mg/dL Creatinine (0.8-1.3) mg/dL Est Cr Clr Drug Dosing Estimated GFR (MDRD) ml/min Glucose (74-106) mg/dL Calcium (8.5-10.1) mg/dL Total Bilirubin (0.2-1.0) mg/dL AST (15-37) IU/L ALT (14-63) IU/L Alkaline Phosphatase (46-116) U/L Troponin I (0.000-0.056) ng/mL Total Protein (6.4-8.2) g/dL Albumin (3.4-5.0) g/dL Globulin (2.6-4.0) g/dL Albumin/Globulin Ratio (0.9-1.6) Urine Color YELLOW Urine Appearance CLEAR Urine pH 6.0 (5.0-8.0) Ur Specific [place] <= 1.005 (1.001-1.035) Urine Protein NEGATIVE (NEGATIVE) mg/dL Urine Glucose (UA) NEGATIVE (NEGATIVE) mg/dL Urine Ketones NEGATIVE (NEGATIVE) mg/dL Urine Occult Blood NEGATIVE (NEGATIVE) Urine Nitrite NEGATIVE (NEGATIVE) Urine Bilirubin NEGATIVE (NEGATIVE) Urine Urobilinogen 0.2 (<2.0) EU/dL Ur Leukocyte Esterase NEGATIVE (NEGATIVE) Urine Opiates Screen NEGATIVE (NEGATIVE) Ur Oxycodone Screen NEGATIVE (NEGATIVE) Urine Methadone Screen NEGATIVE (NEGATIVE) Ur Barbiturates Screen NEGATIVE (NEGATIVE) Ur Phencyclidine Scrn NEGATIVE (NEGATIVE) Ur Amphetamine Screen NEGATIVE (NEGATIVE) U Methamphetamines Scrn NEGATIVE (NEGATIVE) U Benzodiazepines Scrn NEGATIVE (NEGATIVE) U Cocaine Metab Screen NEGATIVE (NEGATIVE) U Marijuana (THC) Screen NEGATIVE (NEGATIVE) Ethyl Alcohol mg/dL 01/14/19 01/14/19 Range/Units 18:14 18:29 WBC (4.0-11.0) K/uL RBC (4.50-5.90) M/uL Hgb (13.0-17.0) g/dL Hct (38.0-50.0) % MCV (80.0-98.0) fL MCH (27.0-32.0) pg MCHC (31.0-37.0) g/dL RDW Std Deviation (28.0-62.0) fl RDW Coeff of Bibi (11.0-15.0) % Plt Count (150-400) K/uL MPV (7.40-12.00) fL Neut % (Auto) (48.0-80.0) % Lymph % (Auto) (16.0-40.0) % Braxton % (Auto) (0.0-15.0) % Eos % (Auto) (0.0-7.0) % Baso % (Auto) (0.0-1.5) % Neut # (Auto) (1.4-5.7) K/uL Lymph # (Auto) (0.6-2.4) K/uL [place] # (Auto) (0.0-0.8) K/uL Eos # (Auto) (0.0-0.7) K/uL Baso # (Auto) (0.0-0.1) K/uL Nucleated RBC % /100WBC Nucleated RBCs # K/uL INR 1.03 Sodium 142 (136-148) mmol/L Potassium 4.1 (3.5-5.1) mmol/L Chloride 102 (98-107) mmol/L Carbon Dioxide 28.4 (21.0-32.0) mmol/L BUN 9 (7.0-18.0) mg/dL Creatinine 1.1 (0.8-1.3) mg/dL Est Cr Clr Drug Dosing TNP Estimated GFR (MDRD) > 60.0 ml/min Glucose 161 H (74-106) mg/dL Calcium 9.2 (8.5-10.1) mg/dL Total Bilirubin 0.2 (0.2-1.0) mg/dL AST 147 H (15-37) IU/L ALT 178 H (14-63) IU/L Alkaline Phosphatase 83 (46-116) U/L Troponin I < 0.050 (0.000-0.056) ng/mL Total Protein 7.4 (6.4-8.2) g/dL Albumin 4.0 (3.4-5.0) g/dL Globulin 3.4 (2.6-4.0) g/dL Albumin/Globulin Ratio 1.2 (0.9-1.6) Urine Color Urine Appearance Urine pH (5.0-8.0) Ur Specific [place] (1.001-1.035) Urine Protein (NEGATIVE) mg/dL Urine Glucose (UA) (NEGATIVE) mg/dL Urine Ketones (NEGATIVE) mg/dL Urine Occult Blood (NEGATIVE) Urine Nitrite (NEGATIVE) Urine Bilirubin (NEGATIVE) Urine Urobilinogen (<2.0) EU/dL Ur Leukocyte Esterase (NEGATIVE) Urine Opiates Screen (NEGATIVE) Ur Oxycodone Screen (NEGATIVE) Urine Methadone Screen (NEGATIVE) Ur Barbiturates Screen (NEGATIVE) Ur Phencyclidine Scrn (NEGATIVE) Ur Amphetamine Screen (NEGATIVE) U Methamphetamines Scrn (NEGATIVE) U Benzodiazepines Scrn (NEGATIVE) U Cocaine Metab Screen (NEGATIVE) U Marijuana (THC) Screen (NEGATIVE) Ethyl Alcohol 283 mg/dL Result Diagrams: 01/14/19 18:14 01/14/19 18:14 - Problem List (1) Alcohol intoxication SNOMED Code(s): 07581401 ICD Code: F10.929 - ALCOHOL USE, UNSPECIFIED WITH INTOXICATION, UNSPECIFIED Status: Acute Current Visit: Yes (2) SAH (subarachnoid hemorrhage) SNOMED Code(s): 432686410 ICD Code: I60.9 - NONTRAUMATIC SUBARACHNOID HEMORRHAGE, UNSPECIFIED Status : Acute Current Visit: Yes (3) Hematoma SNOMED Code(s): 406554396 ICD Code: T14.8XXA - OTHER INJURY OF UNSPECIFIED BODY REGION, INITIAL ENCOUNTER Status: Acute Current Visit: Yes (4) Enlarged parotid gland SNOMED Code(s): 00671560 ICD Code: K11.1 - HYPERTROPHY OF SALIVARY GLAND Status: Acute Current Visit: Yes Problem List Initiated/Reviewed/Updated: Yes Orders Last 24hrs: Active Orders 24 hr Category Date Time Status Admission Status [Patient Status] [ADT] Stat ADT 01/14/19 20:00 Active EKG Documentation Completion [RC] STAT Care 01/14/19 18:08 Active CULTURE BLOOD [BC] Stat Lab 01/14/19 18:14 Received CULTURE BLOOD [BC] Stat Lab 01/14/19 19:20 Received Blood Culture x2 Reflex Set [OM.PC] Stat Oth 01/14/19 18:08 Ordered Assessment/Plan Comment:: Patient will need to be admitted for observation. I reviewed his head CT and his SAH is extremely small and hard to see. Will perform q2hr neuro checks. If this declines will repeat HCT. He has a history of alcohol withdrawl, so will place him on CIWA. He will be on IV NS @ 125ml/hr. Will do secondary exam in am as well as repeat labs. AST and ALT are mildly elevated. If they are still elevated or higher tomorrow will get abdominal CT. NPO other than ice chips or sips with meds.
[2019-01-14] MEDS ORDERED: Sodium Chloride 0.9% 2.5 ML Syringe FLUSH PRN (20:52)
[2019-01-14] MEDS ORDERED: Sodium Chloride 0.9% 10 ML SDV IV PRN (20:52)
[2019-01-14] MEDS ORDERED: Sodium Chloride 0.9% 10 ML Syringe FLUSH PRN (20:52)
[2019-01-14] MEDS ORDERED: Thiamine 100 MG in Sodium Chloride 0.9% 50 ML IV ONE (20:52)
[2019-01-14] MEDS ORDERED: Ondansetron 4 MG/2 ML SDV IVPUSH PRN (20:52)
[2019-01-14] MEDS ORDERED: HYDROmorphone 2 MG/ML SDV IVPUSH PRN (20:54)
[2019-01-14] MEDS ORDERED: Sodium Chloride 0.9% 1,000 ML IV SCH (21:00)
[2019-01-14] MEDS ORDERED: LORazepam 2 MG/ML SDV IV SCH (21:00)
[2019-01-14] MEDS: Nicotine 14 MG/24 Hr Patch TRDERM SCH (22:15)
[2019-01-15 06:46] LABS: CHLORIDE,CL 104 mmol/L (98-107); SODIUM,NA 144 mmol/L (136-148)
[2019-01-15] MEDS ORDERED: HYDROmorphone 1 MG/ML Syringe IVPUSH PRN (07:45)
[2019-01-15] MEDS ORDERED: Folic Acid 1 MG Tab PO SCH (09:00)
[2019-01-15] MEDS: Nicotine 14 MG/24 Hr Patch TRDERM SCH (09:06)
[2019-01-15] MEDS ORDERED: Albuterol/Ipratropium 3.0-0.5 MG/3 ML Neb Soln NEB PRN (09:16)
[2019-01-15 12:58] VITALS: BP 150/86
--- NOTE | 2019-01-15 15:16 | PCM.DCSUM1 ---
Discharge Summary - Hospital Course Free Text/Narrative:: Patient is a 53-year-old male who presents after a fall from standing due to intoxication. He was drinking yesterday and per report was driving. He pulled over and apparently fell down. He was brought in by paramedics. CT the head showed a small left frontal subarachnoid hemorrhage. He also had a hematoma over his right eyebrow as well as a right parotid gland mass. Remainder of his x -rays were normal. His alcohol level was 283. He was admitted to the floor under see what her conscience. Every 2 hours neuro checks were performed. He remained stable overnight. This morning he is more awake and alert. He is complaining of some mild right-sided chest pain. His chest x-ray yesterday was normal. He was given a nebulizer treatment which improved his breathing and resolved small amount of wheezing he was experiencing. He is advanced to regular diet. His repeat labs this morning showed improving AST and ALTs to almost normal. He has small hemoglobin drop which is likely dilutional as well secondary to his facial hematoma. Physical exam was otherwise normal. He is ambulating without difficulty, urinating, and was cleared for discharge home. He has a niece who works for home care services will be checking in on him frequently. - Discharge Data Discharge Date: 01/15/19 Discharge Disposition: Home, Self-Care 01 Condition: Stable - Discharge Diagnosis/Problem(s) (1) Alcohol intoxication SNOMED Code(s): 16074663 ICD Code: F10.929 - ALCOHOL USE, UNSPECIFIED WITH INTOXICATION, UNSPECIFIED Status: Acute (2) SAH (subarachnoid hemorrhage) SNOMED Code(s): 540952709 ICD Code: I60.9 - NONTRAUMATIC SUBARACHNOID HEMORRHAGE, UNSPECIFIED Status : Acute (3) Hematoma SNOMED Code(s): 162611595 ICD Code: T14.8XXA - OTHER INJURY OF UNSPECIFIED BODY REGION, INITIAL ENCOUNTER Status: Acute (4) Enlarged parotid gland SNOMED Code(s): 38679450 ICD Code: K11.1 - HYPERTROPHY OF SALIVARY GLAND Status: Acute - Patient Instructions Diet: Regular Diet as Tolerated Activity: Rest and Relax Today Driving: Do Not Drive Showering/Bathing: May Shower Notify Provider of: Fever, Increased Pain, Swelling and Redness, Drainage, Nausea and/or Vomiting Other/Special Instructions: Follow up with PCP regarding right partotid gland mass. No aspirin for one week - Discharge Plan *PRESCRIPTION DRUG MONITORING PROGRAM REVIEWED*: Yes *COPY OF PRESCRIPTION DRUG MONITORING REPORT IN PATIENT MAL: Yes Home Medications: Home Meds Aspirin [Adult Low Dose Aspirin EC] 81 mg PO DAILY 12/30/15 [History] Cholecalciferol (Vitamin D3) [Vitamin D3] 1,000 unit PO DAILY 12/30/15 [History] Glimepiride [Amaryl] 4 mg PO BID 12/30/15 [History] Loratadine [Claritin] 10 mg PO DAILY 12/30/15 [History] Losartan Potassium [Cozaar] 50 mg PO DAILY 12/30/15 [History] Meloxicam 15 mg PO BEDTIME PRN 12/30/15 [History] SitaGLIPtin [Januvia] 100 mg PO DAILY 12/30/15 [History] atorvaSTATin Calcium [Atorvastatin Calcium] 20 mg PO BEDTIME 12/30/15 [History] metFORMIN HCl [Metformin HCl] 1,000 mg PO BID 12/30/15 [History] Gabapentin [Neurontin] 300 mg PO BID 11/17/16 [History] Hydrochlorothiazide 25 mg PO DAILY 03/15/17 [History] Mirtazapine 60 mg PO BEDTIME 03/30/17 [History] OLANZapine [ZyPREXA] 10 mg PO BID 03/30/17 [History] traZODone HCl [Trazodone HCl] 225 mg PO BEDTIME 03/30/17 [History] amLODIPine [Norvasc] 5 mg PO DAILY 07/26/18 [History] ClonazePAM [KlonoPIN] 0.5 mg PO TID 01/15/19 [History] Terbinafine [LamISIL] 250 mg PO DAILY 01/15/19 [History] Patient Handouts: Concussion, Adult, [id number], Subarachnoid Hemorrhage, [id number], Alcohol Intoxication, [id number], Hematoma, [id number]-[id number] Referrals: [facility] [Outside] Iris Art DO [Resident] - 01/23/19 2:30 pm - Discharge Summary/Plan Comment DC Time >30 min.: No - General Info Functional Status: Reports: Pain Controlled, Tolerating Diet, Ambulating, Urinating - Review of Systems General: Reports: No Symptoms HEENT: Reports: No Symptoms Pulmonary: Reports: No Symptoms Cardiovascular: Reports: No Symptoms Gastrointestinal: Reports: No Symptoms Genitourinary: Reports: No Symptoms Musculoskeletal: Reports: No Symptoms Skin: Reports: No Symptoms - Patient Data Vitals - Most Recent: Last Vital Signs Temp 36.4 C 01/15/19 12:00 Pulse 96 01/15/19 12:00 Resp 20 01/15/19 12:00 BP 150/86 H 01/15/19 12:00 Pulse Ox 93 L 01/15/19 12:00 Weight - Most Recent: 99.79 kg I&O - Last 24 hours: Intake & Output 01/15/19 01/15/19 01/15/19 06:59 14:59 22:59 Intake Total 2380 Output Total 500 900 Balance -500 1480 Lab Results - Last 24 hrs: Laboratory Results - last 24 hr 01/14/19 01/14/19 01/14/19 Range/Units 17:45 17:45 18:14 WBC 8.16 (4.0-11.0) K/uL RBC 4.51 (4.50-5.90) M/uL Hgb 14.6 (13.0-17.0) g/dL Hct 44.1 (38.0-50.0) % MCV 97.8 (80.0-98.0) fL MCH 32.4 H (27.0-32.0) pg MCHC 33.1 (31.0-37.0) g/dL RDW Std Deviation 47.3 (28.0-62.0) fl RDW Coeff of Bibi 13 (11.0-15.0) % Plt Count 209 (150-400) K/uL MPV 10.50 (7.40-12.00) fL Neut % (Auto) 57.0 (48.0-80.0) % Lymph % (Auto) 35.2 (16.0-40.0) % Tripp % (Auto) 4.7 (0.0-15.0) % Eos % (Auto) 2.0 (0.0-7.0) % Baso % (Auto) 1.1 (0.0-1.5) % Neut # (Auto) 4.7 (1.4-5.7) K/uL Lymph # (Auto) 2.9 H (0.6-2.4) K/uL Tripp # (Auto) 0.4 (0.0-0.8) K/uL Eos # (Auto) 0.2 (0.0-0.7) K/uL Baso # (Auto) 0.1 (0.0-0.1) K/uL Nucleated RBC % 0.0 /100WBC Nucleated RBCs # 0 K/uL INR Sodium (136-148) mmol/L Potassium (3.5-5.1) mmol/L Chloride (98-107) mmol/L Carbon Dioxide (21.0-32.0) mmol/L BUN (7.0-18.0) mg/dL Creatinine (0.8-1.3) mg/dL Est Cr Clr Drug Dosing Estimated GFR (MDRD) ml/min Glucose (74-106) mg/dL Calcium (8.5-10.1) mg/dL Total Bilirubin (0.2-1.0) mg/dL AST (15-37) IU/L ALT (14-63) IU/L Alkaline Phosphatase (46-116) U/L Troponin I (0.000-0.056) ng/mL Total Protein (6.4-8.2) g/dL Albumin (3.4-5.0) g/dL Globulin (2.6-4.0) g/dL Albumin/Globulin Ratio (0.9-1.6) Urine Color YELLOW Urine Appearance CLEAR Urine pH 6.0 (5.0-8.0) Ur Specific [place] <= 1.005 (1.001-1.035) Urine Protein NEGATIVE (NEGATIVE) mg/dL Urine Glucose (UA) NEGATIVE (NEGATIVE) mg/dL Urine Ketones NEGATIVE (NEGATIVE) mg/dL Urine Occult Blood NEGATIVE (NEGATIVE) Urine Nitrite NEGATIVE (NEGATIVE) Urine Bilirubin NEGATIVE (NEGATIVE) Urine Urobilinogen 0.2 (<2.0) EU/dL Ur Leukocyte Esterase NEGATIVE (NEGATIVE) Urine Opiates Screen NEGATIVE (NEGATIVE) Ur Oxycodone Screen NEGATIVE (NEGATIVE) Urine Methadone Screen NEGATIVE (NEGATIVE) Ur Barbiturates Screen NEGATIVE (NEGATIVE) Ur Phencyclidine Scrn NEGATIVE (NEGATIVE) Ur Amphetamine Screen NEGATIVE (NEGATIVE) U Methamphetamines Scrn NEGATIVE (NEGATIVE) U Benzodiazepines Scrn NEGATIVE (NEGATIVE) U Cocaine Metab Screen NEGATIVE (NEGATIVE) U Marijuana (THC) Screen NEGATIVE (NEGATIVE) Ethyl Alcohol mg/dL 01/14/19 01/14/19 01/15/19 Range/Units 18:14 18:29 06:12 WBC 10.21 (4.0-11.0) K/uL RBC 4.05 L (4.50-5.90) M/uL Hgb 12.9 L (13.0-17.0) g/dL Hct 39.8 (38.0-50.0) % MCV 98.3 H (80.0-98.0) fL MCH 31.9 (27.0-32.0) pg MCHC 32.4 (31.0-37.0) g/dL RDW Std Deviation 48.5 (28.0-62.0) fl RDW Coeff of Bibi 14 (11.0-15.0) % Plt Count 191 (150-400) K/uL MPV 10.00 (7.40-12.00) fL Neut % (Auto) (48.0-80.0) % Lymph % (Auto) (16.0-40.0) % Tripp % (Auto) (0.0-15.0) % Eos % (Auto) (0.0-7.0) % Baso % (Auto) (0.0-1.5) % Neut # (Auto) (1.4-5.7) K/uL Lymph # (Auto) (0.6-2.4) K/uL Tripp # (Auto) (0.0-0.8) K/uL Eos # (Auto) (0.0-0.7) K/uL Baso # (Auto) (0.0-0.1) K/uL Nucleated RBC % 0.0 /100WBC Nucleated RBCs # 0 K/uL INR 1.03 Sodium 142 (136-148) mmol/L Potassium 4.1 (3.5-5.1) mmol/L Chloride 102 (98-107) mmol/L Carbon Dioxide 28.4 (21.0-32.0) mmol/L BUN 9 (7.0-18.0) mg/dL Creatinine 1.1 (0.8-1.3) mg/dL Est Cr Clr Drug Dosing TNP Estimated GFR (MDRD) > 60.0 ml/min Glucose 161 H (74-106) mg/dL Calcium 9.2 (8.5-10.1) mg/dL Total Bilirubin 0.2 (0.2-1.0) mg/dL AST 147 H (15-37) IU/L ALT 178 H (14-63) IU/L Alkaline Phosphatase 83 (46-116) U/L Troponin I < 0.050 (0.000-0.056) ng/mL Total Protein 7.4 (6.4-8.2) g/dL Albumin 4.0 (3.4-5.0) g/dL Globulin 3.4 (2.6-4.0) g/dL Albumin/Globulin Ratio 1.2 (0.9-1.6) Urine Color Urine Appearance Urine pH (5.0-8.0) Ur Specific [place] (1.001-1.035) Urine Protein (NEGATIVE) mg/dL Urine Glucose (UA) (NEGATIVE) mg/dL Urine Ketones (NEGATIVE) mg/dL Urine Occult Blood (NEGATIVE) Urine Nitrite (NEGATIVE) Urine Bilirubin (NEGATIVE) Urine Urobilinogen (<2.0) EU/dL Ur Leukocyte Esterase (NEGATIVE) Urine Opiates Screen (NEGATIVE) Ur Oxycodone Screen (NEGATIVE) Urine Methadone Screen (NEGATIVE) Ur Barbiturates Screen (NEGATIVE) Ur Phencyclidine Scrn (NEGATIVE) Ur Amphetamine Screen (NEGATIVE) U Methamphetamines Scrn (NEGATIVE) U Benzodiazepines Scrn (NEGATIVE) U Cocaine Metab Screen (NEGATIVE) U Marijuana (THC) Screen (NEGATIVE) Ethyl Alcohol 283 mg/dL 01/15/19 Range/Units 06:12 WBC (4.0-11.0) K/uL RBC (4.50-5.90) M/uL Hgb (13.0-17.0) g/dL Hct (38.0-50.0) % MCV (80.0-98.0) fL MCH (27.0-32.0) pg MCHC (31.0-37.0) g/dL RDW Std Deviation (28.0-62.0) fl RDW Coeff of Bibi (11.0-15.0) % Plt Count (150-400) K/uL MPV (7.40-12.00) fL Neut % (Auto) (48.0-80.0) % Lymph % (Auto) (16.0-40.0) % Tripp % (Auto) (0.0-15.0) % Eos % (Auto) (0.0-7.0) % Baso % (Auto) (0.0-1.5) % Neut # (Auto) (1.4-5.7) K/uL Lymph # (Auto) (0.6-2.4) K/uL Tripp # (Auto) (0.0-0.8) K/uL Eos # (Auto) (0.0-0.7) K/uL Baso # (Auto) (0.0-0.1) K/uL Nucleated RBC % /100WBC Nucleated RBCs # K/uL INR Sodium 144 (136-148) mmol/L Potassium 4.2 (3.5-5.1) mmol/L Chloride 104 (98-107) mmol/L Carbon Dioxide 28.6 (21.0-32.0) mmol/L BUN 12 (7.0-18.0) mg/dL Creatinine 1.1 (0.8-1.3) mg/dL Est Cr Clr Drug Dosing 83.28 Estimated GFR (MDRD) > 60.0 ml/min Glucose 155 H (74-106) mg/dL Calcium 8.4 L (8.5-10.1) mg/dL Total Bilirubin 0.2 (0.2-1.0) mg/dL AST 79 H (15-37) IU/L ALT 144 H (14-63) IU/L Alkaline Phosphatase 69 (46-116) U/L Troponin I (0.000-0.056) ng/mL Total Protein 6.5 (6.4-8.2) g/dL Albumin 3.5 (3.4-5.0) g/dL Globulin 3.0 (2.6-4.0) g/dL Albumin/Globulin Ratio 1.2 (0.9-1.6) Urine Color Urine Appearance Urine pH (5.0-8.0) Ur Specific [place] (1.001-1.035) Urine Protein (NEGATIVE) mg/dL Urine Glucose (UA) (NEGATIVE) mg/dL Urine Ketones (NEGATIVE) mg/dL Urine Occult Blood (NEGATIVE) Urine Nitrite (NEGATIVE) Urine Bilirubin (NEGATIVE) Urine Urobilinogen (<2.0) EU/dL Ur Leukocyte Esterase (NEGATIVE) Urine Opiates Screen (NEGATIVE) Ur Oxycodone Screen (NEGATIVE) Urine Methadone Screen (NEGATIVE) Ur Barbiturates Screen (NEGATIVE) Ur Phencyclidine Scrn (NEGATIVE) Ur Amphetamine Screen (NEGATIVE) U Methamphetamines Scrn (NEGATIVE) U Benzodiazepines Scrn (NEGATIVE) U Cocaine Metab Screen (NEGATIVE) U Marijuana (THC) Screen (NEGATIVE) Ethyl Alcohol mg/dL Med Orders - Current: Current Medications Discontinued Medications Albuterol/Ipratropium (Duoneb 3.0-0.5 Mg/3 Ml) 3 ml NEB Q6HRRT PRN PRN Reason: Wheezing Last Admin: 01/15/19 09:30 Dose: 3 ml Folic Acid (Folic Acid) 1 mg PO DAILY [place] Stop: 01/17/19 09:01 Last Admin: 01/15/19 09:05 Dose: 1 mg Hydromorphone HCl (Dilaudid) 0.5 mg IVPUSH Q1H PRN PRN Reason: Pain (severe 7-10) Hydromorphone HCl (Dilaudid) 0.5 mg IVPUSH Q1H PRN PRN Reason: Pain (severe 7-10) Last Admin: 01/15/19 09:43 Dose: 0.5 mg Sodium Chloride (Normal Saline) 1,000 mls @ 999 mls/hr IV STAT ONE Stop: 01/14/19 19:08 Last Admin: 01/14/19 18:33 Dose: 999 mls/hr Sodium Chloride (Normal Saline) 1,000 mls @ 125 mls/hr IV ASDIRECTED [facility] Last Admin: 01/14/19 22:13 Dose: 125 mls/hr Thiamine HCl 100 mg/ Sodium (Chloride) 51 mls @ 100 mls/hr IV ONETIME ONE Stop: 01/14/19 21:22 Last Admin: 01/14/19 22:14 Dose: 100 mls/hr Lorazepam (Ativan) 0 mg IV ASDIRECTED [facility]; Protocol Metformin HCl (Glucophage Xr) 1,000 mg PO BIDMEALS [facility] Nicotine (Habitrol) 14 mg TRDERM DAILY [facility] Last Admin: 01/15/19 09:06 Dose: 14 mg Ondansetron HCl (Zofran) Confirm Administered Dose 4 mg .ROUTE .STK-MED ONE Stop: 01/14/19 18:10 Last Admin: 01/14/19 18:33 Dose: 4 mg Ondansetron HCl (Zofran) 4 mg IVPUSH Q4H PRN PRN Reason: Nausea Sitagliptin Phosphate (Januvia) 100 mg PO DAILY [place] Sodium Chloride (Saline Flush) 10 ml FLUSH ASDIRECTED PRN PRN Reason: Keep Vein Open Sodium Chloride (Saline Flush) 2.5 ml FLUSH ASDIRECTED PRN PRN Reason: Keep Vein Open Sodium Chloride (Normal Saline) 10 ml IV ASDIRECTED PRN PRN Reason: IV Use - Exam General: Reports: Alert, Oriented HEENT: Reports: Pupils Equal, Pupils Reactive, EOMI, Mucous Membr. Moist/[place], Other (Large ecchymosis over right eye brow) Neck: Reports: Supple, Trachea Midline Lungs: Reports: Clear to Auscultation, Normal Respiratory Effort Cardiovascular: Reports: Regular Rate, Regular Rhythm GI/Abdominal Exam: Soft, Non-Tender, No Distention, No Mass (Male) Exam: Normal Inspection Rectal (Males) Exam: Normal Exam Back Exam: Reports: Normal Inspection, Full Range of Motion Extremities: Normal Inspection, Normal Range of Motion, Non-Tender, No Pedal Edema, Normal Capillary Refill Skin: Reports: Warm, Dry, Intact Wound/Incisions: Reports: Healing Well Neurological: Reports: No New Focal Deficit Psy/Mental Status: Reports: Alert, Normal Affect, Normal Mood
[2019-01-15] MEDS ORDERED: metFORMIN 500 MG Tab.ER PO SCH (17:00)
== END 2019-01-15 13:38 | disposition home or self-care (01) ==
LOC: MW.ED 18:02 → MW.MS 20:47
PROVIDERS: ADMIT Surgery; ATTEND Surgery
DX: F10.929 Alcohol use, unspecified with intoxication, unspecified (principal); I60.8 Other nontraumatic subarachnoid hemorrhage; I10 Essential (primary) hypertension; K11.1 Hypertrophy of salivary gland; E11.9 Type 2 diabetes mellitus without complications; E78.00 Pure hypercholesterolemia, unspecified; S00.11XA Contusion of right eyelid and periocular area, initial encounter; W19.XXXA Unspecified fall, initial encounter; Z79.82 Long term (current) use of aspirin; Z79.84 Long term (current) use of oral hypoglycemic drugs; Z79.899 Other long term (current) drug therapy
CPT/HCPCS: 36415; 70450; 70486; 71045; 72125; 72170; 80053; 80305; 81003; 84484; 85025; 85027; 85610; 87040; 93005; 94640; 96361; 96374; 96375; 96376; 99285; A9270; G0378; G0480; J1170; J2405; J3411; J7030; J7040; 99284; J7620-GY

== ENCOUNTER 2019-07-17 10:57 | Emergency (ER) | payer MEDICARE, MEDICAID ==
--- NOTE | 2019-07-17 11:07 | EDM.PDOC ---
ED HPI GENERAL MEDICAL PROBLEM - General Chief Complaint: Gastrointestinal Problem Stated Complaint: CONSTIPATION Time Seen by Provider: 07/17/19 11:05 - History of Present Illness INITIAL COMMENTS - FREE TEXT/NARRATIVE: HISTORY AND PHYSICAL: History of present illness: Patient 53-year-old white male presents with a concern of constipation requesting prescription for laxative. He denies fever chills nausea vomiting or other complaints Review of systems: As per history of present illness and below otherwise all systems reviewed and negative. Past medical history: As per history of present illness and as reviewed below otherwise noncontributory. Surgical history: As per history of present illness and as reviewed below otherwise noncontributory. Social history: No reported history of drug or alcohol abuse. Family history: As per history of present illness and as reviewed below otherwise noncontributory. Physical exam: HEENT: Atraumatic, normocephalic, pupils reactive, negative for conjunctival pallor or scleral icterus, mucous membranes moist, throat clear, neck supple, nontender, trachea midline. Lungs: Clear to auscultation, breath sounds equal bilaterally, chest nontender. Heart: S1S2, regular, negative for clicks, rubs, or JVD. Abdomen: Soft, nondistended, nontender. Negative for masses or hepatosplenomegaly. Negative for costovertebral tenderness. Pelvis: Stable nontender. Genitourinary: Deferred. Rectal: Deferred. Extremities: Atraumatic, negative for cords or calf pain. Neurovascular unremarkable. Neuro: Awake, alert, oriented. Cranial nerves II through XII unremarkable. Cerebellum unremarkable. Motor and sensory unremarkable throughout. Exam nonfocal. Diagnostics: None Therapeutics: None Impression: #1 medical screening exam #2 history of constipation Definitive disposition and diagnosis as appropriate pending reevaluation and review of above. - Related Data Allergies Allergy/AdvReac Type Severity Reaction Status Date / Time No Known Allergies Allergy Verified 09/20/18 09:04 Home Meds: Home Meds Aspirin [Adult Low Dose Aspirin EC] 81 mg PO DAILY 12/30/15 [History] Cholecalciferol (Vitamin D3) [Vitamin D3] 1,000 unit PO DAILY 12/30/15 [History] Glimepiride [Amaryl] 4 mg PO BID 12/30/15 [History] Loratadine [Claritin] 10 mg PO DAILY 12/30/15 [History] Losartan Potassium [Cozaar] 50 mg PO DAILY 12/30/15 [History] Meloxicam 15 mg PO BEDTIME PRN 12/30/15 [History] SitaGLIPtin [Januvia] 100 mg PO DAILY 12/30/15 [History] atorvaSTATin Calcium [Atorvastatin Calcium] 20 mg PO BEDTIME 12/30/15 [History] metFORMIN HCl [Metformin HCl] 1,000 mg PO BID 12/30/15 [History] Gabapentin [Neurontin] 300 mg PO BID 11/17/16 [History] Hydrochlorothiazide 25 mg PO DAILY 03/15/17 [History] Mirtazapine 60 mg PO BEDTIME 03/30/17 [History] OLANZapine [ZyPREXA] 10 mg PO BID 03/30/17 [History] traZODone HCl [Trazodone HCl] 225 mg PO BEDTIME 03/30/17 [History] amLODIPine [Norvasc] 5 mg PO DAILY 07/26/18 [History] ClonazePAM [KlonoPIN] 0.5 mg PO TID 01/15/19 [History] Terbinafine [LamISIL] 250 mg PO DAILY 01/15/19 [History] Past Medical History HEENT History: Reports: None Cardiovascular History: Reports: High Cholesterol, Hypertension Respiratory History: Reports: None Gastrointestinal History: Reports: None Genitourinary History: Reports: None Musculoskeletal History: Reports: Arthritis Neurological History: Reports: None Psychiatric History: Reports: Anxiety, Depression, Mood Swings, Psych Hospitalization(s), Schizophrenia, Suicidal Ideation Endocrine/Metabolic History: Reports: Diabetes, Type II, Obesity/BMI 30+ Hematologic History: Reports: None Immunologic History: Reports: None Oncologic (Cancer) History: Reports: None Dermatologic History: Reports: None - Infectious Disease History Infectious Disease History: Reports: Chicken Pox - Past Surgical History Head Surgeries/Procedures: Reports: None HEENT Surgical History: Reports: None Cardiovascular Surgical History: Reports: None GI Surgical History: Reports: Hernia Repair/Other Male Surgical History: Reports: None Endocrine Surgical History: Reports: None Neurological Surgical History: Reports: None Musculoskeletal Surgical History: Reports: None Dermatological Surgical History: Reports: None Social & Family History - Family History Family Medical History: Noncontributory - Caffeine Use Caffeine Use: Reports: Coffee, Soda Caffeine Use Comment: 1-2 cups per day - Living Situation & Occupation Living situation: Reports: Alone Occupation: Disabled ED ROS GENERAL - Review of Systems Review Of Systems: Comprehensive ROS is negative, except as noted in HPI. ED EXAM, GENERAL - Physical Exam Exam: See Below (See dictation) Departure - Departure Time of Disposition: 11:06 Disposition: Home, Self-Care 01 Condition: Good Clinical Impression: Encounter for medical screening examination - Discharge Information Referrals: Rios Jarrell MD [Primary Care Provider] - Additional Instructions: The following information is given to patients seen in the emergency department who are being discharged to home. This information is to outline your options for follow-up care. We provide all patients seen in our emergency department with a follow-up referral. The need for follow-up, as well as the timing and circumstances, are variable depending upon the specifics of your emergency department visit. If you don't have a primary care physician on staff, we will provide you with a referral. We always advise you to contact your personal physician following an emergency department visit to inform them of the circumstance of the visit and for follow-up with them and/or the need for any referrals to a consulting specialist. The emergency department will also refer you to a specialist when appropriate. This referral assures that you have the opportunity for followup care with a specialist. All of these measure are taken in an effort to provide you with optimal care, which includes your followup. Under all circumstances we always encourage you to contact your private physician who remains a resource for coordinating your care. When calling for followup care, please make the office aware that this follow-up is from your recent emergency room visit. If for any reason you are refused follow-up, please contact the [facility] emergency department at and asked to speak to the emergency department charge nurse. Colace as prescribed [id number] laxative as directed follow-up primary medical doctor as needed as discussed and return as needed as discussed
[2019-07-17 11:30] VITALS: BP 113/71; PULSE 93
== END 2019-07-17 11:30 | disposition home or self-care (01) ==
LOC: MW.ED 10:57
DX: Z13.9 Encounter for screening, unspecified (principal); I10 Essential (primary) hypertension; E11.9 Type 2 diabetes mellitus without complications; F41.9 Anxiety disorder, unspecified; F32.9 Major depressive disorder, single episode, unspecified; E78.00 Pure hypercholesterolemia, unspecified; E66.9 Obesity, unspecified; Z68.31 Body mass index [BMI] 31.0-31.9, adult; Z79.82 Long term (current) use of aspirin; Z79.84 Long term (current) use of oral hypoglycemic drugs; Z79.899 Other long term (current) drug therapy
CPT/HCPCS: 99283

== ENCOUNTER 2019-12-18 10:41 | Emergency (ER) | payer MEDICARE, MEDICAID ==
[2019-12-18] MEDS ORDERED: Sodium Chloride 0.9% 1,000 ML IV ONE (11:15)
[2019-12-18] MEDS ORDERED: Sodium Chloride 0.9% 10 ML Syringe FLUSH PRN (11:15)
[2019-12-18] MEDS ORDERED: Sodium Chloride 0.9% 2.5 ML Syringe FLUSH PRN (11:15)
--- NOTE | 2019-12-18 11:16 | EDM.PDOCBH ---
ED HPI GENERAL MEDICAL PROBLEM - General Chief Complaint: Drug or Alcohol Abuse Stated Complaint: DETOX Time Seen by Provider: 12/18/19 11:16 Source of Information: Reports: Patient History Limitations: Reports: No Limitations - History of Present Illness INITIAL COMMENTS - FREE TEXT/NARRATIVE: HISTORY AND PHYSICAL: History of present illness: Patient is a 54-year-old male presents to the ED for "alcohol detox." Patient has history of anxiety, depression, schizophrenia, diabetes and hypertension. Patient states that he drank half fifth of vodka yesterday. He states he drinks about once a month but does not drink daily. He states today he is shaky and thinks he needs some ativan to calm him down. Patient denies ever having a seizure due to alcohol withdrawal. He states he does not plan to go home and drink and again states he is not a daily drinker. He denies any suicidal or homicidal ideation. He denies chest pain, shortness of breath, nausea, vomiting , abdominal pain, diarrhea. Review of systems: As per history of present illness and below otherwise all systems reviewed and negative. Past medical history: As per history of present illness and as reviewed below otherwise noncontributory. Surgical history: As per history of present illness and as reviewed below otherwise noncontributory. Social history: No reported history of drug or alcohol abuse. Family history: As per history of present illness and as reviewed below otherwise noncontributory. Physical exam: General: Patient sitting comfortably in no acute distress and nontoxic appearing HEENT: Atraumatic, normocephalic, pupils reactive, negative for conjunctival pallor or scleral icterus, mucous membranes moist, throat clear, neck supple, nontender, trachea midline. No meningeal signs. Lungs: Clear to auscultation, breath sounds equal bilaterally, chest nontender. Heart: S1S2, regular, negative for clicks, rubs, or overt murmur. Abdomen: Soft, nondistended, nontender. Negative for masses or hepatosplenomegaly. Negative for costovertebral tenderness. No rigidity, rebound , guarding. Pelvis: Stable nontender. Genitourinary: Deferred. Rectal: Deferred. Extremities: Atraumatic, negative for cords or calf pain. Neurovascular unremarkable. Neuro: Awake, alert, oriented. Cranial nerves II through XII unremarkable. Cerebellum unremarkable. Motor and sensory unremarkable throughout. Exam nonfocal. Notes: Patient has elevated WBC. Chest x-ray and UA unremarkable. He denies cough, sore throat, sinus pressure, congestion, abdominal pain. Patient was advised to follow up with primary care provider and return to ED if any new or worsening symptoms. Patient anxious in ED, he was given 1mg Ativan here. Diagnostics: CBC, CMP Therapeutics: 1L NS IV 1mg Ativan IV Prescriptions: Impression: Alcohol use, anxiety Plan: Follow up with primary care provider Return to ED As needed as discussed Definitive disposition and diagnosis as appropriate pending reevaluation and review of above. - Related Data Allergies Allergy/AdvReac Type Severity Reaction Status Date / Time No Known Allergies Allergy Verified 07/17/19 11:17 Home Meds: Home Meds Aspirin [Adult Low Dose Aspirin EC] 81 mg PO DAILY 12/30/15 [History] Cholecalciferol (Vitamin D3) [Vitamin D3] 1,000 unit PO DAILY 12/30/15 [History] Glimepiride [Amaryl] 4 mg PO BID 12/30/15 [History] Loratadine [Claritin] 10 mg PO DAILY 12/30/15 [History] Losartan Potassium [Cozaar] 50 mg PO DAILY 12/30/15 [History] Meloxicam 15 mg PO BEDTIME PRN 12/30/15 [History] SitaGLIPtin [Januvia] 100 mg PO DAILY 12/30/15 [History] atorvaSTATin Calcium [Atorvastatin Calcium] 20 mg PO BEDTIME 12/30/15 [History] metFORMIN HCl [Metformin HCl] 1,000 mg PO BID 12/30/15 [History] Gabapentin [Neurontin] 300 mg PO BID 11/17/16 [History] Hydrochlorothiazide 25 mg PO DAILY 03/15/17 [History] Mirtazapine 60 mg PO BEDTIME 03/30/17 [History] OLANZapine [ZyPREXA] 10 mg PO BID 03/30/17 [History] traZODone HCl [Trazodone HCl] 225 mg PO BEDTIME 03/30/17 [History] amLODIPine [Norvasc] 5 mg PO DAILY 07/26/18 [History] ClonazePAM [KlonoPIN] 0.5 mg PO TID 01/15/19 [History] Terbinafine [LamISIL] 250 mg PO DAILY 01/15/19 [History] Past Medical History HEENT History: Reports: None Cardiovascular History: Reports: High Cholesterol, Hypertension Respiratory History: Reports: None Gastrointestinal History: Reports: None Genitourinary History: Reports: None Musculoskeletal History: Reports: Arthritis Neurological History: Reports: None Psychiatric History: Reports: Anxiety, Depression, Mood Swings, Psych Hospitalization(s), Schizophrenia, Suicidal Ideation Endocrine/Metabolic History: Reports: Diabetes, Type II, Obesity/BMI 30+ Hematologic History: Reports: None Immunologic History: Reports: None Oncologic (Cancer) History: Reports: None Dermatologic History: Reports: None - Infectious Disease History Infectious Disease History: Reports: Chicken Pox - Past Surgical History Head Surgeries/Procedures: Reports: None HEENT Surgical History: Reports: None Cardiovascular Surgical History: Reports: None GI Surgical History: Reports: Hernia Repair/Other Male Surgical History: Reports: None Endocrine Surgical History: Reports: None Neurological Surgical History: Reports: None Musculoskeletal Surgical History: Reports: None Dermatological Surgical History: Reports: None Social & Family History - Family History Family Medical History: Noncontributory - Caffeine Use Caffeine Use: Reports: Coffee, Soda Caffeine Use Comment: 1-2 cups per day - Living Situation & Occupation Living situation: Reports: Alone Occupation: Disabled ED ROS GENERAL - Review of Systems Review Of Systems: Comprehensive ROS is negative, except as noted in HPI. ED EXAM, BEHAVIORAL HEALTH - Physical Exam Exam: See Below (see dictation) COURSE, BEHAVIORAL HEALTH COMP - Course Vital Signs: Last Vital Signs Temp 97.3 F 12/18/19 11:19 Pulse 110 H 12/18/19 11:19 Resp 22 H 12/18/19 11:19 BP 130/86 12/18/19 11:19 Pulse Ox 95 12/18/19 11:19 Orders, Labs, Meds: Active Orders 24 hr Category Date Time Status LORazepam [Ativan] Med 12/18/19 13:09 Once 1 mg IVPUSH ONETIME ONE Sodium Chloride 0.9% [Saline Flush] Med 12/18/19 11:15 Active 10 ml FLUSH ASDIRECTED PRN Sodium Chloride 0.9% [Saline Flush] Med 12/18/19 11:15 Active 2.5 ml FLUSH ASDIRECTED PRN Saline Lock Insert [OM.PC] Stat Oth 12/18/19 11:15 Ordered Medication Orders Sodium Chloride (Saline Flush) 10 ml FLUSH ASDIRECTED PRN PRN Reason: Keep Vein Open Sodium Chloride (Saline Flush) 2.5 ml FLUSH ASDIRECTED PRN PRN Reason: Keep Vein Open Laboratory Tests 12/18/19 12/18/19 12/18/19 Range/Units 12:05 12:05 12:20 WBC 17.05 H (4.0-11.0) K/uL RBC 4.42 L (4.50-5.90) M/uL Hgb 14.4 (13.0-17.0) g/dL Hct 42.2 (38.0-50.0) % MCV 95.5 (80.0-98.0) fL MCH 32.6 H (27.0-32.0) pg MCHC 34.1 (31.0-37.0) g/dL RDW Std Deviation 45.2 (28.0-62.0) fl RDW Coeff of Bibi 13 (11.0-15.0) % Plt Count 247 (150-400) K/uL MPV 10.00 (7.40-12.00) fL Neut % (Auto) 77.5 (48.0-80.0) % Lymph % (Auto) 15.4 L (16.0-40.0) % [place] % (Auto) 6.6 (0.0-15.0) % Eos % (Auto) 0.1 (0.0-7.0) % Baso % (Auto) 0.4 (0.0-1.5) % Neut # (Auto) 13.2 H (1.4-5.7) K/uL Lymph # (Auto) 2.6 H (0.6-2.4) K/uL [place] # (Auto) 1.1 H (0.0-0.8) K/uL Eos # (Auto) 0.0 (0.0-0.7) K/uL Baso # (Auto) 0.1 (0.0-0.1) K/uL Nucleated RBC % 0.0 /100WBC Nucleated RBCs # 0 K/uL Sodium 137 (136-148) mmol/L Potassium 3.6 (3.5-5.1) mmol/L Chloride 98 (98-107) mmol/L Carbon Dioxide 25.6 (21.0-32.0) mmol/L BUN 13 (7.0-18.0) mg/dL Creatinine 1.3 (0.8-1.3) mg/dL Est Cr Clr Drug Dosing 65.51 mL/min Estimated GFR (MDRD) 57.1 ml/min Glucose 169 H (74-106) mg/dL Calcium 9.2 (8.5-10.1) mg/dL Total Bilirubin 0.5 (0.2-1.0) mg/dL AST 18 (15-37) IU/L ALT 41 (14-63) IU/L Alkaline Phosphatase 94 (46-116) U/L Total Protein 7.5 (6.4-8.2) g/dL Albumin 4.4 (3.4-5.0) g/dL Globulin 3.1 (2.6-4.0) g/dL Albumin/Globulin Ratio 1.4 (0.9-1.6) Urine Color YELLOW Urine Appearance CLEAR Urine pH 6.5 (5.0-8.0) Ur Specific [place] 1.010 (1.001-1.035) Urine Protein NEGATIVE (NEGATIVE) mg/dL Urine Glucose (UA) NEGATIVE (NEGATIVE) mg/dL Urine Ketones NEGATIVE (NEGATIVE) mg/dL Urine Occult Blood NEGATIVE (NEGATIVE) Urine Nitrite NEGATIVE (NEGATIVE) Urine Bilirubin NEGATIVE (NEGATIVE) Urine Urobilinogen 0.2 (<2.0) EU/dL Ur Leukocyte Esterase NEGATIVE (NEGATIVE) Medications Generic Name Dose Route Start Last Admin Trade Name Freq PRN Reason Stop Dose Admin Sodium Chloride 10 ml 12/18/19 11:15 Saline Flush FLUSH ASDIRECTED PRN Keep Vein Open Sodium Chloride 2.5 ml 12/18/19 11:15 Saline Flush FLUSH ASDIRECTED PRN Keep Vein Open Discontinued Medications Generic Name Dose Route Start Last Admin Trade Name Freq PRN Reason Stop Dose Admin Sodium Chloride 1,000 mls @ 999 mls/hr 12/18/19 11:15 12/18/19 12:00 Normal Saline IV 12/18/19 12:15 999 mls/hr STAT ONE Administration Departure - Departure Time of Disposition: 13:12 Disposition: Home, Self-Care 01 Condition: Good Clinical Impression: Alcohol use, Anxiety - Discharge Information Referrals: PCP,Unknown [Primary Care Provider] - Forms: ED Department Discharge Additional Instructions: The following information is given to patients seen in the emergency department who are being discharged to home. This information is to outline your options for follow-up care. We provide all patients seen in our emergency department with a follow-up referral. The need for follow-up, as well as the timing and circumstances, are variable depending upon the specifics of your emergency department visit. If you don't have a primary care physician on staff, we will provide you with a referral. We always advise you to contact your personal physician following an emergency department visit to inform them of the circumstance of the visit and for follow-up with them and/or the need for any referrals to a consulting specialist. The emergency department will also refer you to a specialist when appropriate. This referral assures that you have the opportunity for follow-up care with a specialist. All of these measure are taken in an effort to provide you with optimal care, which includes your follow-up. Under all circumstances we always encourage you to contact your private physician who remains a resource for coordinating your care. When calling for follow-up care, please make the office aware that this follow-up is from your recent emergency room visit. If for any reason you are refused follow-up, please contact the [facility] Emergency Department at and asked to speak to the emergency department charge nurse. [facility] [address] [place], [place] [id number] [place] [address] Follow up with primary care provider Return to ED as needed as discussed Sepsis Event Note - Focused Exam Vital Signs: Vital Signs Temp Pulse Resp BP Pulse Ox 12/18/19 11:19 97.3 F 110 H 22 H 130/86 95 Date Exam was Performed: 12/18/19 Time Exam was Performed: 13:10 - My Orders Last 24 Hours: My Active Orders 12/18/19 11:15 Sodium Chloride 0.9% [Saline Flush] 10 ml FLUSH ASDIRECTED PRN Sodium Chloride 0.9% [Saline Flush] 2.5 ml FLUSH ASDIRECTED PRN Saline Lock Insert [OM.PC] Stat 12/18/19 13:09 LORazepam [Ativan] 1 mg IVPUSH ONETIME ONE - Assessment/Plan Last 24 Hours: My Active Orders 12/18/19 11:15 Sodium Chloride 0.9% [Saline Flush] 10 ml FLUSH ASDIRECTED PRN Sodium Chloride 0.9% [Saline Flush] 2.5 ml FLUSH ASDIRECTED PRN Saline Lock Insert [OM.PC] Stat 12/18/19 13:09 LORazepam [Ativan] 1 mg IVPUSH ONETIME ONE
[2019-12-18 12:34] LABS: CARBON DIOXIDE,CO2 25.6 mmol/L (21.0-32.0); POTASSIUM,K 3.6 mmol/L (3.5-5.1)
--- NOTE | 2019-12-18 13:07 | CR ---
Chest: 2 views of the chest were obtained. Comparison: Prior chest x-ray of 01/14/19. Heart size and mediastinum are normal. Lungs are clear with no acute parenchymal change. Bony structures are within normal limits for the patient's age. Lungs are hyperinflated on the lateral view suggesting emphysematous change. Impression: 1. Possible emphysematous change. 2. Nothing acute is otherwise appreciated on 2 view chest x-ray. Diagnostic code #2 This report was dictated in MDT
[2019-12-18] MEDS ORDERED: LORazepam 2 MG/ML SDV IVPUSH ONE (13:09)
[2019-12-18 13:42] VITALS: BP 141/80; PULSE 102
== END 2019-12-18 13:30 | disposition home or self-care (01) ==
LOC: MW.ED 10:41
DX: F41.9 Anxiety disorder, unspecified (principal); Z72.89 Other problems related to lifestyle; E11.9 Type 2 diabetes mellitus without complications; E78.00 Pure hypercholesterolemia, unspecified; I10 Essential (primary) hypertension; M19.90 Unspecified osteoarthritis, unspecified site; E66.9 Obesity, unspecified; Z68.30 Body mass index [BMI] 30.0-30.9, adult; F20.9 Schizophrenia, unspecified; Z79.82 Long term (current) use of aspirin; Z79.84 Long term (current) use of oral hypoglycemic drugs; Z79.899 Other long term (current) drug therapy
CPT/HCPCS: 71046; 80053; 81003; 85025; 96374; 99284; J2060; J7030

== ENCOUNTER 2020-09-04 16:54 | Emergency (ER) | payer MEDICARE, MEDICAID ==
--- NOTE | 2020-09-04 17:10 | EDM.PDOC ---
ED HPI GENERAL MEDICAL PROBLEM - General Chief Complaint: Upper Extremity Injury/Pain Stated Complaint: RT ARM PAIN Time Seen by Provider: 09/04/20 17:00 Source of Information: Reports: Patient History Limitations: Reports: No Limitations - History of Present Illness INITIAL COMMENTS - FREE TEXT/NARRATIVE: A 55-year-old male who presents today after drinking fall 4 days ago. Patient dates he went directly on his elbow and had pain in the elbow since then. Patient able to range and move the elbow but the pain has been persistent. Patient denies any his head or having LOC. Patient denies any other complaints. right arm Pain Score (Numeric/FACES): 10 - Related Data Allergies Allergy/AdvReac Type Severity Reaction Status Date / Time No Known Allergies Allergy Verified 09/04/20 17:09 Home Meds: Home Meds Aspirin [Adult Low Dose Aspirin EC] 81 mg PO DAILY 12/30/15 [History] Cholecalciferol (Vitamin D3) [Vitamin D3] 1,000 unit PO DAILY 12/30/15 [History] Glimepiride [Amaryl] 4 mg PO BID 12/30/15 [History] Loratadine [Claritin] 10 mg PO DAILY 12/30/15 [History] Losartan Potassium [Cozaar] 50 mg PO DAILY 12/30/15 [History] Meloxicam 15 mg PO BEDTIME PRN 12/30/15 [History] SitaGLIPtin [Januvia] 100 mg PO DAILY 12/30/15 [History] atorvaSTATin Calcium [Atorvastatin Calcium] 20 mg PO BEDTIME 12/30/15 [History] metFORMIN HCl [Metformin HCl] 1,000 mg PO BID 12/30/15 [History] Gabapentin [Neurontin] 300 mg PO BID 11/17/16 [History] Hydrochlorothiazide 25 mg PO DAILY 03/15/17 [History] Mirtazapine 60 mg PO BEDTIME 03/30/17 [History] OLANZapine [ZyPREXA] 10 mg PO BID 03/30/17 [History] traZODone HCl [Trazodone HCl] 225 mg PO BEDTIME 03/30/17 [History] amLODIPine [Norvasc] 5 mg PO DAILY 07/26/18 [History] ClonazePAM [KlonoPIN] 0.5 mg PO TID 01/15/19 [History] Terbinafine [LamISIL] 250 mg PO DAILY 01/15/19 [History] Past Medical History HEENT History: Reports: None Cardiovascular History: Reports: High Cholesterol, Hypertension Respiratory History: Reports: None Gastrointestinal History: Reports: None Genitourinary History: Reports: None Musculoskeletal History: Reports: Arthritis Neurological History: Reports: None Psychiatric History: Reports: Anxiety, Depression, Mood Swings, Psych Hospitalization(s), Schizophrenia, Suicidal Ideation Endocrine/Metabolic History: Reports: Diabetes, Type II, Obesity/BMI 30+ Hematologic History: Reports: None Immunologic History: Reports: None Oncologic (Cancer) History: Reports: None Dermatologic History: Reports: None - Infectious Disease History Infectious Disease History: Reports: Chicken Pox - Past Surgical History Head Surgeries/Procedures: Reports: None HEENT Surgical History: Reports: None Cardiovascular Surgical History: Reports: None GI Surgical History: Reports: Hernia Repair/Other Male Surgical History: Reports: None Endocrine Surgical History: Reports: None Neurological Surgical History: Reports: None Musculoskeletal Surgical History: Reports: None Dermatological Surgical History: Reports: None Social & Family History - Family History Family Medical History: No Pertinent Family History - Caffeine Use Caffeine Use: Reports: Coffee, Soda Caffeine Use Comment: 1-2 cups per day - Living Situation & Occupation Living situation: Reports: Alone Occupation: Disabled Review of Systems - Review of Systems Review Of Systems: See Below Constitutional: Reports: No Symptoms Eyes: Reports: No Symptoms Ears: Reports: No Symptoms Nose: Reports: No Symptoms Mouth/Throat: Reports: No Symptoms Respiratory: Reports: No Symptoms Cardiovascular: Reports: No Symptoms GI/Abdominal: Reports: No Symptoms Genitourinary: Reports: No Symptoms Musculoskeletal: Reports: No Symptoms, Arm Pain Skin: Reports: No Symptoms Neurological: Reports: No Symptoms Psychiatric: Reports: No Symptoms ED EXAM, GENERAL - Physical Exam Exam: See Below Exam Limited By: No Limitations General Appearance: Alert, WD/WN Head: Atraumatic, Normocephalic Neck: Non-Tender Extremities: Normal Inspection, Normal Range of Motion, Non-Tender Neurological: Alert, Oriented, Normal Cognition, Normal Gait ED TRAUMA EXTREMITY PROCEDURES - Splinting Right Upper Extremity Splint Site: elbow Pre-Procedure NV Status: Normal Post-Procedure NV Status: Normal Splint Material: Other (orthoglass) Splint Design: Posterior Applied & Form Fitted By: Nurse Provider Post-Splint Application NV Check: NV Status Normal, Good Position Complications: No Course - Vital Signs Last Recorded V/S: Last Vital Signs Temp 97.8 F 09/04/20 17:02 Pulse 105 H 09/04/20 17:02 Resp 20 09/04/20 17:02 BP 176/63 H 09/04/20 17:02 Pulse Ox 93 L 09/04/20 17:02 - Orders/Labs/Meds Meds: Medications Discontinued Medications Generic Name Dose Route Start Last Admin Trade Name Donato PRN Reason Stop Dose Admin Ibuprofen 800 mg 09/04/20 17:08 09/04/20 17:16 Motrin PO 09/04/20 17:09 800 mg ONETIME ONE Administration - Re-Assessments/Exams Free Text/Narrative Re-Assessment/Exam: 09/04/20 18:28 10 x-ray of the elbow shows anterior fat pad which is common in children possible supracondylar fracture. Patient does have point tenderness in the area so will place in a splint and have patient follow-up with Ortho for repeat imaging. Departure - Departure Time of Disposition: 18:25 Disposition: Home, Self-Care 01 Condition: Good Clinical Impression: Elbow fracture, right - Discharge Information *PRESCRIPTION DRUG MONITORING PROGRAM REVIEWED*: Not Applicable *COPY OF PRESCRIPTION DRUG MONITORING REPORT IN PATIENT MAL: Not Applicable Instructions: Cast or Splint Care, Adult, [id number] Referrals: PCP,None [Primary Care Provider] - Forms: ED Department Discharge Additional Instructions: The following information is given to patients seen in the emergency department who are being discharged to home. This information is to outline your options for follow-up care. We provide all patients seen in our emergency department with a follow-up referral. The need for follow-up, as well as the timing and circumstances, are variable depending upon the specifics of your emergency department visit. If you don't have a primary care physician on staff, we will provide you with a referral. We always advise you to contact your personal physician following an emergency department visit to inform them of the circumstance of the visit and for follow-up with them and/or the need for any referrals to a consulting specialist. The emergency department will also refer you to a specialist when appropriate. This referral assures that you have the opportunity for follow-up care with a specialist. All of these measure are taken in an effort to provide you with optimal care, which includes your follow-up. Under all circumstances we always encourage you to contact your private physician who remains a resource for coordinating your care. When calling for follow-up care, please make the office aware that this follow-up is from your recent emergency room visit. If for any reason you are refused follow-up, please contact the [facility] Emergency Department at and asked to speak to the emergency department charge nurse. Please follow up with your primary care physician. If you do not have a primary care physician, see below: [facility] - Orth[facility] Clinic Professional Building [address] [place] [address], [address] [place] [address] Please follow-up with the orthopedic doctor in 1 week. Keep this splint on. We provide instructions on how to care for the splint. If you have any arm numbness or tingling please return to the ED. Sepsis Event Note (ED) - Focused Exam Vital Signs: Vital Signs Temp Pulse Resp BP Pulse Ox 09/04/20 17:02 97.8 F 105 H 20 176/63 H 93 L - Assessment/Plan Assessment:: 55-year-old male presents today for right elbow pain after a trip and fall 4 days ago. Patient has good range of motion and pulses. Will obtain x-ray and reassess.
[2020-09-04] MEDS: Ibuprofen 800 MG Tab PO ONE (17:16)
--- NOTE | 2020-09-04 17:47 | CR ---
INDICATION: Fall. TECHNIQUE: Three-view right elbow. IMPRESSION: Displacement of anterior posterior fat pad suggests elbow effusion. No definite fracture is seen but consider delayed follow up imaging to evaluate for call intraarticular fracture/injury. No intra-articular radiodense body is identified. Alignments are anatomic. Dictated by Lizandro Edward MD @ Sep 04 2020 5:43PM Signed by Dr. Lizandro Edward @ Sep 04 2020 5:45PM
[2020-09-04 18:44] VITALS: BP 163/86; PULSE 93
== END 2020-09-04 18:45 | disposition home or self-care (01) ==
LOC: MW.ED 16:54
DX: S42.401A Unspecified fracture of lower end of right humerus, initial encounter for closed fracture (principal); I10 Essential (primary) hypertension; E78.00 Pure hypercholesterolemia, unspecified; E11.9 Type 2 diabetes mellitus without complications; E66.9 Obesity, unspecified; Z68.27 Body mass index [BMI] 27.0-27.9, adult; Z79.82 Long term (current) use of aspirin; Z79.84 Long term (current) use of oral hypoglycemic drugs; Z79.899 Other long term (current) drug therapy; W19.XXXA Unspecified fall, initial encounter
CPT/HCPCS: 29105; 73080; 99283; A9270

== ENCOUNTER 2020-10-31 11:03 | Emergency (ER) | payer MEDICARE, MEDICAID ==
--- NOTE | 2020-10-31 11:19 | EDM.PDOC ---
ED HPI GENERAL MEDICAL PROBLEM - General Chief Complaint: General Stated Complaint: DIZZINESS SINCE SUNDAY Time Seen by Provider: 10/31/20 11:11 Source of Information: Reports: Patient History Limitations: Reports: No Limitations - History of Present Illness INITIAL COMMENTS - FREE TEXT/NARRATIVE: 55-year-old male with history of schizophrenia, DM 2, alcohol use presents with room spinning sensation. Symptoms started 4 days ago and it waxes and wanes, worse with standing up and sitting up. She also notes a mild gradual onset, nonradiating, frontal headache this morning that was transient. Associated with nausea. Currently he does not feel the headache or nauseous. He denies fever, chills, neck pain or stiffness, tinnitus, hearing loss, traumas, head injury, vomiting, SI, HI, hallucinations, chest pain, shortness of breath, abdominal pain, blurry vision, unsteady gait. ROS: A 10-point review of systems, other than pertinent positives and negatives as stated per HPI, is otherwise negative Past medical history: No additional pertinent history Past Surgical history: No additional pertinent history Social history: No additional pertinent history Family history: No additional pertinent history PHYSICAL EXAM General: AOx4, GCS = 15, No distress HEENT: dry mucous membrane Neck: supple, no meningismus, no Kernig or Brudzinski Cardiac: S1S2 RRR Respiratory: CTAB, no crackles or rales, no wheezing Abdomen: Soft, nontender, no rebound or guarding, nondistended, no pulsatile mass. Back: nontender Musculoskeletal: NVI distally, no deformity Neuro: No focal deficits, CN 2 - 12 WNL. Normal gait, no dysdiadochokinesia, normal [id number]. Negative Romberg. Psych: No SI/HI/VH/AH. - Related Data Allergies Allergy/AdvReac Type Severity Reaction Status Date / Time No Known Allergies Allergy Verified 10/31/20 11:28 Home Meds: Home Meds Aspirin [Adult Low Dose Aspirin EC] 81 mg PO DAILY 12/30/15 [History] Cholecalciferol (Vitamin D3) [Vitamin D3] 1,000 unit PO DAILY 12/30/15 [History] Glimepiride [Amaryl] 4 mg PO BID 12/30/15 [History] Loratadine [Claritin] 10 mg PO DAILY 12/30/15 [History] Losartan Potassium [Cozaar] 50 mg PO DAILY 12/30/15 [History] Meloxicam 15 mg PO BEDTIME PRN 12/30/15 [History] SitaGLIPtin [Januvia] 100 mg PO DAILY 12/30/15 [History] atorvaSTATin Calcium [Atorvastatin Calcium] 20 mg PO BEDTIME 12/30/15 [History] metFORMIN HCl [Metformin HCl] 1,000 mg PO BID 12/30/15 [History] Gabapentin [Neurontin] 300 mg PO BID 11/17/16 [History] Hydrochlorothiazide 25 mg PO DAILY 03/15/17 [History] Mirtazapine 60 mg PO BEDTIME 03/30/17 [History] OLANZapine [ZyPREXA] 10 mg PO BID 03/30/17 [History] traZODone HCl [Trazodone HCl] 225 mg PO BEDTIME 03/30/17 [History] amLODIPine [Norvasc] 5 mg PO DAILY 07/26/18 [History] ClonazePAM [KlonoPIN] 0.5 mg PO TID 01/15/19 [History] Terbinafine [LamISIL] 250 mg PO DAILY 01/15/19 [History] Ibuprofen [Motrin] 800 mg PO QID PRN 10 Days #40 tab 09/04/20 [Rx] Meclizine [Antivert] 25 mg PO TID PRN #15 tab 10/31/20 [Rx] Past Medical History HEENT History: Reports: None Cardiovascular History: Reports: High Cholesterol, Hypertension Respiratory History: Reports: None Gastrointestinal History: Reports: None Genitourinary History: Reports: None Musculoskeletal History: Reports: Arthritis Neurological History: Reports: None Psychiatric History: Reports: Anxiety, Depression, Mood Swings, Psych Hospitalization(s), Schizophrenia, Suicidal Ideation Endocrine/Metabolic History: Reports: Diabetes, Type II, Obesity/BMI 30+ Hematologic History: Reports: None Immunologic History: Reports: None Oncologic (Cancer) History: Reports: None Dermatologic History: Reports: None - Infectious Disease History Infectious Disease History: Reports: Chicken Pox - Past Surgical History Head Surgeries/Procedures: Reports: None HEENT Surgical History: Reports: None Cardiovascular Surgical History: Reports: None GI Surgical History: Reports: Hernia Repair/Other Male Surgical History: Reports: None Endocrine Surgical History: Reports: None Neurological Surgical History: Reports: None Musculoskeletal Surgical History: Reports: None Dermatological Surgical History: Reports: None Social & Family History - Family History Family Medical History: No Pertinent Family History - Caffeine Use Caffeine Use: Reports: Coffee, Soda Caffeine Use Comment: 1-2 cups per day - Living Situation & Occupation Living situation: Reports: Alone Occupation: Disabled ED ROS GENERAL - Review of Systems Review Of Systems: See Below (see dictation) ED EXAM, GENERAL - Physical Exam Exam: See Below (see dictation) #1 Interpretation EKG Interpretation Comments: Heart rate = 94 bpm, normal sinus rhythm, normal QRS interval, no STEMI. EKG and rhythm strip interpreted by me at 1110 Course - Vital Signs Last Recorded V/S: Last Vital Signs Temp 97.6 F 10/31/20 11:15 Pulse 86 10/31/20 14:07 Resp 18 10/31/20 14:07 BP 126/78 10/31/20 14:07 Pulse Ox 94 L 10/31/20 14:07 - Orders/Labs/Meds Orders: Active Orders 24 hr Category Date Time Status Blood Glucose Check, Bedside [RC] ONETIME Care 10/31/20 11:14 Active Cardiac Monitoring [RC] . DIRECTED Care 10/31/20 11:14 Active EKG 12 Lead [EKG Documentation Completion] [RC] STAT Care 10/31/20 11:14 Active Pulse Oximetry Continuous Monitoring [OM.PC] CONTINUOUS Oth 10/31/20 11:15 Or dered Labs: Laboratory Tests 10/31/20 10/31/20 10/31/20 Range/Units 11:24 11:35 11:35 WBC 7.84 (4.0-11.0) K/uL RBC 4.13 L (4.50-5.90) M/uL Hgb 13.5 (13.0-17.0) g/dL Hct 39.7 (38.0-50.0) % MCV 96.1 (80.0-98.0) fL MCH 32.7 H (27.0-32.0) pg MCHC 34.0 (31.0-37.0) g/dL RDW Std Deviation 44.6 (28.0-62.0) fl RDW Coeff of Bibi 13 (11.0-15.0) % Plt Count 202 (150-400) K/uL MPV 10.60 (7.40-12.00) fL Neut % (Auto) 64.4 (48.0-80.0) % Lymph % (Auto) 25.1 (16.0-40.0) % [place] % (Auto) 7.7 (0.0-15.0) % Eos % (Auto) 2.0 (0.0-7.0) % Baso % (Auto) 0.8 (0.0-1.5) % Neut # (Auto) 5.1 (1.4-5.7) K/uL Lymph # (Auto) 2.0 (0.6-2.4) K/uL [place] # (Auto) 0.6 (0.0-0.8) K/uL Eos # (Auto) 0.2 (0.0-0.7) K/uL Baso # (Auto) 0.1 (0.0-0.1) K/uL Nucleated RBC % 0.0 /100WBC Nucleated RBCs # 0 K/uL INR 1.02 Sodium (136-148) mmol/L Potassium (3.5-5.1) mmol/L Chloride (98-107) mmol/L Carbon Dioxide (21.0-32.0) mmol/L BUN (7.0-18.0) mg/dL Creatinine (0.8-1.3) mg/dL Est Cr Clr Drug Dosing Estimated GFR (MDRD) ml/min Glucose (74-106) mg/dL POC Glucose 193 H (60-110) mg/dL Calcium (8.5-10.1) mg/dL Total Bilirubin (0.2-1.0) mg/dL AST (15-37) IU/L ALT (14-63) IU/L Alkaline Phosphatase (46-116) U/L Troponin I (0.000-0.056) ng/mL Total Protein (6.4-8.2) g/dL Albumin (3.4-5.0) g/dL Globulin (2.6-4.0) g/dL Albumin/Globulin Ratio (0.9-1.6) Urine Color Urine Appearance Urine pH (5.0-8.0) Ur Specific [place] (1.001-1.035) Urine Protein (NEGATIVE) mg/dL Urine Glucose (UA) (NEGATIVE) mg/dL Urine Ketones (NEGATIVE) mg/dL Urine Occult Blood (NEGATIVE) Urine Nitrite (NEGATIVE) Urine Bilirubin (NEGATIVE) Urine Urobilinogen (<2.0) EU/dL Ur Leukocyte Esterase (NEGATIVE) Urine Opiates Screen (NEGATIVE) Ur Oxycodone Screen (NEGATIVE) Urine Methadone Screen (NEGATIVE) Ur Barbiturates Screen (NEGATIVE) Ur Phencyclidine Scrn (NEGATIVE) Ur Amphetamine Screen (NEGATIVE) U Methamphetamines Scrn (NEGATIVE) U Benzodiazepines Scrn (NEGATIVE) U Cocaine Metab Screen (NEGATIVE) U Marijuana (THC) Screen (NEGATIVE) Ethyl Alcohol mg/dL 10/31/20 10/31/20 10/31/20 Range/Units 11:35 11:35 12:45 WBC (4.0-11.0) K/uL RBC (4.50-5.90) M/uL Hgb (13.0-17.0) g/dL Hct (38.0-50.0) % MCV (80.0-98.0) fL MCH (27.0-32.0) pg MCHC (31.0-37.0) g/dL RDW Std Deviation (28.0-62.0) fl RDW Coeff of Bibi (11.0-15.0) % Plt Count (150-400) K/uL MPV (7.40-12.00) fL Neut % (Auto) (48.0-80.0) % Lymph % (Auto) (16.0-40.0) % [place] % (Auto) (0.0-15.0) % Eos % (Auto) (0.0-7.0) % Baso % (Auto) (0.0-1.5) % Neut # (Auto) (1.4-5.7) K/uL Lymph # (Auto) (0.6-2.4) K/uL [place] # (Auto) (0.0-0.8) K/uL Eos # (Auto) (0.0-0.7) K/uL Baso # (Auto) (0.0-0.1) K/uL Nucleated RBC % /100WBC Nucleated RBCs # K/uL INR Sodium 133 L (136-148) mmol/L Potassium 3.9 (3.5-5.1) mmol/L Chloride 97 L (98-107) mmol/L Carbon Dioxide 26.0 (21.0-32.0) mmol/L BUN 7 (7.0-18.0) mg/dL Creatinine 1.2 (0.8-1.3) mg/dL Est Cr Clr Drug Dosing TNP Estimated GFR (MDRD) > 60.0 ml/min Glucose 209 H (74-106) mg/dL POC Glucose (60-110) mg/dL Calcium 8.9 (8.5-10.1) mg/dL Total Bilirubin 0.2 (0.2-1.0) mg/dL AST 18 (15-37) IU/L ALT 34 (14-63) IU/L Alkaline Phosphatase 74 (46-116) U/L Troponin I < 0.050 (0.000-0.056) ng/mL Total Protein 7.5 (6.4-8.2) g/dL Albumin 3.8 (3.4-5.0) g/dL Globulin 3.7 (2.6-4.0) g/dL Albumin/Globulin Ratio 1.0 (0.9-1.6) Urine Color YELLOW Urine Appearance CLEAR Urine pH 6.5 (5.0-8.0) Ur Specific [place] 1.010 (1.001-1.035) Urine Protein NEGATIVE (NEGATIVE) mg/dL Urine Glucose (UA) NEGATIVE (NEGATIVE) mg/dL Urine Ketones NEGATIVE (NEGATIVE) mg/dL Urine Occult Blood NEGATIVE (NEGATIVE) Urine Nitrite NEGATIVE (NEGATIVE) Urine Bilirubin NEGATIVE (NEGATIVE) Urine Urobilinogen 0.2 (<2.0) EU/dL Ur Leukocyte Esterase NEGATIVE (NEGATIVE) Urine Opiates Screen (NEGATIVE) Ur Oxycodone Screen (NEGATIVE) Urine Methadone Screen (NEGATIVE) Ur Barbiturates Screen (NEGATIVE) Ur Phencyclidine Scrn (NEGATIVE) Ur Amphetamine Screen (NEGATIVE) U Methamphetamines Scrn (NEGATIVE) U Benzodiazepines Scrn (NEGATIVE) U Cocaine Metab Screen (NEGATIVE) U Marijuana (THC) Screen (NEGATIVE) Ethyl Alcohol <3 mg/dL 10/31/20 Range/Units 12:45 WBC (4.0-11.0) K/uL RBC (4.50-5.90) M/uL Hgb (13.0-17.0) g/dL Hct (38.0-50.0) % MCV (80.0-98.0) fL MCH (27.0-32.0) pg MCHC (31.0-37.0) g/dL RDW Std Deviation (28.0-62.0) fl RDW Coeff of Bibi (11.0-15.0) % Plt Count (150-400) K/uL MPV (7.40-12.00) fL Neut % (Auto) (48.0-80.0) % Lymph % (Auto) (16.0-40.0) % [place] % (Auto) (0.0-15.0) % Eos % (Auto) (0.0-7.0) % Baso % (Auto) (0.0-1.5) % Neut # (Auto) (1.4-5.7) K/uL Lymph # (Auto) (0.6-2.4) K/uL [place] # (Auto) (0.0-0.8) K/uL Eos # (Auto) (0.0-0.7) K/uL Baso # (Auto) (0.0-0.1) K/uL Nucleated RBC % /100WBC Nucleated RBCs # K/uL INR Sodium (136-148) mmol/L Potassium (3.5-5.1) mmol/L Chloride (98-107) mmol/L Carbon Dioxide (21.0-32.0) mmol/L BUN (7.0-18.0) mg/dL Creatinine (0.8-1.3) mg/dL Est Cr Clr Drug Dosing Estimated GFR (MDRD) ml/min Glucose (74-106) mg/dL POC Glucose (60-110) mg/dL Calcium (8.5-10.1) mg/dL Total Bilirubin (0.2-1.0) mg/dL AST (15-37) IU/L ALT (14-63) IU/L Alkaline Phosphatase (46-116) U/L Troponin I (0.000-0.056) ng/mL Total Protein (6.4-8.2) g/dL Albumin (3.4-5.0) g/dL Globulin (2.6-4.0) g/dL Albumin/Globulin Ratio (0.9-1.6) Urine Color Urine Appearance Urine pH (5.0-8.0) Ur Specific [place] (1.001-1.035) Urine Protein (NEGATIVE) mg/dL Urine Glucose (UA) (NEGATIVE) mg/dL Urine Ketones (NEGATIVE) mg/dL Urine Occult Blood (NEGATIVE) Urine Nitrite (NEGATIVE) Urine Bilirubin (NEGATIVE) Urine Urobilinogen (<2.0) EU/dL Ur Leukocyte Esterase (NEGATIVE) Urine Opiates Screen NEGATIVE (NEGATIVE) Ur Oxycodone Screen NEGATIVE (NEGATIVE) Urine Methadone Screen NEGATIVE (NEGATIVE) Ur Barbiturates Screen NEGATIVE (NEGATIVE) Ur Phencyclidine Scrn NEGATIVE (NEGATIVE) Ur Amphetamine Screen NEGATIVE (NEGATIVE) U Methamphetamines Scrn NEGATIVE (NEGATIVE) U Benzodiazepines Scrn NEGATIVE (NEGATIVE) U Cocaine Metab Screen NEGATIVE (NEGATIVE) U Marijuana (THC) Screen NEGATIVE (NEGATIVE) Ethyl Alcohol mg/dL Meds: Medications Discontinued Medications Generic Name Dose Route Start Last Admin Trade Name Freq PRN Reason Stop Dose Admin Meclizine HCl 25 mg 10/31/20 13:52 10/31/20 14:06 Antivert PO 10/31/20 13:53 25 mg ONETIME ONE Administration - Re-Assessments/Exams Free Text/Narrative Re-Assessment/Exam: 10/31/20 14:17 After meclizine in the ER, the patient improved and is currently stable for discharge. I performed a repeat exam and did not appreciate new abnormal findings. Patient exhibits normal vital signs and has a normal gait on road test. I advised the patient to return to the ER for reevaluation if symptoms worsened, including fever, worsening pain, or any other worrisome symptoms. I instructed the patient to follow up with their PCP within 2-3 days. MEDICAL DECISION MAKING: I reviewed the patients past medical records, lab and radiographic findings. I discussed the case with the patient. My differential diagnosis included: Vertigo, BPPV, electrolyte abnormality.Patient's symptoms today are consistent with peripheral vertigo. I do not suspect central etiology, stroke, SAH, meningitis, or any severe infection. Patient's dizziness resolved with ED treatment, and there were no other focal neurological findings or additional complaints. Pt well appearing, ambulatory on own in ED w/o difficulty. I instructed the patient to return immediately for severe, persistent dizziness, vomiting, fever, focal weakness, change in mental status, headache or other concerns. Pt voiced under-standing and questions answered. Departure - Departure Time of Disposition: 14:18 Disposition: Home, Self-Care 01 Condition: Good Clinical Impression: History of schizophrenia, Vertigo - Discharge Information *PRESCRIPTION DRUG MONITORING PROGRAM REVIEWED*: Not Applicable *COPY OF PRESCRIPTION DRUG MONITORING REPORT IN PATIENT MAL: Not Applicable Prescriptions: Meclizine [Antivert] 25 mg PO TID PRN #15 tab PRN Reason: Dizziness Instructions: How to Perform the Francesco Maneuver, Vertigo, Dizziness, [id number] Referrals: PCP,Rory [Primary Care Provider] - Forms: ED Department Discharge Additional Instructions: The need for follow-up, as well as the timing and circumstances, are variable depending upon the specifics of your emergency department visit. If you don't have a primary care physician on staff, we will provide you with a referral. We always advise you to contact your personal physician following an emergency department visit to inform them of the circumstance of the visit and for follow-up with them and/or the need for any referrals to a consulting specialist. The emergency department will also refer you to a specialist when appropriate. This referral assures that you have the opportunity for follow-up care with a specialist. All of these measure are taken in an effort to provide you with optimal care, which includes your follow-up. Under all circumstances we always encourage you to contact your private physician who remains a resource for coordinating your care. When calling for follow-up care, please make the office aware that this follow-up is from your recent emergency room visit. If for any reason you are refused follow-up, please contact the [facility] Emergency Department at and asked to speak to the emergency department charge nurse. If you do not have a primary care doctor, please follow up with the clinics below within 3-5 days. [facility] - Primary Care [address] [place] [id number] [facility] [address] [place] [address] Sepsis Event Note (ED) - Focused Exam Vital Signs: Vital Signs Temp Pulse Resp BP Pulse Ox 10/31/20 14:07 86 18 126/78 94 L 10/31/20 12:30 86 18 114/75 95 10/31/20 11:15 97.6 F 102 H 18 125/80 96 - My Orders Last 24 Hours: My Active Orders 10/31/20 11:14 Blood Glucose Check, Bedside [RC] ONETIME Cardiac Monitoring [RC] . DIRECTED EKG 12 Lead [EKG Documentation Completion] [RC] STAT 10/31/20 11:15 Pulse Oximetry Continuous Monitoring [OM.PC] CONTINUOUS - Assessment/Plan Last 24 Hours: My Active Orders 10/31/20 11:14 Blood Glucose Check, Bedside [RC] ONETIME Cardiac Monitoring [RC] . DIRECTED EKG 12 Lead [EKG Documentation Completion] [RC] STAT 10/31/20 11:15 Pulse Oximetry Continuous Monitoring [OM.PC] CONTINUOUS
[2020-10-31 12:09] LABS: BLOOD UREA NITROGEN,BUN 7 mg/dL (7.0-18.0); CHLORIDE,CL 97 mmol/L (98-107); GLUCOSE RANDOM 209 mg/dL (74-106); POTASSIUM,K 3.9 mmol/L (3.5-5.1); SODIUM,NA 133 mmol/L (136-148)
--- NOTE | 2020-10-31 12:11 | CR ---
Indication: Chest pain. Technique: AP portable view of the chest. Comparison: December 18, 2019. Findings: The heart is normal in size. The lungs are clear. No infiltrate, pleural effusion, or pneumothorax is identified. Impression: No acute cardiopulmonary process Dictated by Julissa Santos MD @ Oct 31 2020 12:09PM Signed by Dr. Julissa Santos @ Oct 31 2020 12:10PM
--- NOTE | 2020-10-31 12:33 | CT ---
INDICATION: Dizziness. TECHNIQUE: Head CT without intravenous contrast. Coronal and sagittal formats. COMPARISON: Head CT 01/14/2019. FINDINGS: No intracranial hemorrhage, extra-axial collection, or evidence of acute cortical infarction. Similar faint hyperdensities involving the bilateral basal ganglia (series 201, images 19-21), favor focal mineralization. Age-appropriate ventricles and sulci. No mass effect or midline shift. Orbits and cranium intact. Paranasal sinuses and mastoid air cells are clear. IMPRESSION: No acute intracranial findings. Dictated by Raul William MD @ 10/31/2020 12:30:41 PM Please note that all CT scans at this facility use dose modulation, iterative reconstruction, and/or weight-based dosing when appropriate to reduce radiation dose to as low as reasonably achievable. Dictated by: Raul William MD @ 10/31/2020 12:30:47 (Electronically Signed)
[2020-10-31] MEDS ORDERED: Meclizine 25 MG Tab PO ONE (13:52)
[2020-10-31 21:35] VITALS: BP 125/82; PULSE 83
== END 2020-10-31 14:27 | disposition home or self-care (01) ==
LOC: MW.ED 11:03
DX: R42 Dizziness and giddiness (principal); Z86.59 Personal history of other mental and behavioral disorders; E66.9 Obesity, unspecified; E11.9 Type 2 diabetes mellitus without complications; E78.00 Pure hypercholesterolemia, unspecified; I10 Essential (primary) hypertension; M19.90 Unspecified osteoarthritis, unspecified site; Z79.82 Long term (current) use of aspirin; Z79.84 Long term (current) use of oral hypoglycemic drugs
CPT/HCPCS: 36415; 70450; 71045; 80053; 80305; 80307; 81003; 82962; 84484; 85025; 85610; 93005; 99284; A9270; 93010

== ENCOUNTER 2021-01-15 09:09 | Emergency (ER) | payer MEDICARE, MEDICAID ==
--- NOTE | 2021-01-15 09:56 | EDM.PDOC ---
ED HPI GENERAL MEDICAL PROBLEM - General Chief Complaint: Cardiovascular Problem Stated Complaint: VERTIGO Time Seen by Provider: 01/15/21 09:30 - History of Present Illness INITIAL COMMENTS - FREE TEXT/NARRATIVE: History of present illness: [] The patient has spinning sensation and things are moving back and forth when he looks at them for 4 days. It is worse when he stands up. He is not diaphoretic or lightheaded. He has no nausea and vomiting. He has no headache. There are no other neurologic symptoms. He has had dizziness before and had a CT recently because of dizziness but he says this is different. He has had this same sensation in the remote past. He does not have any fever chills or earache. His hearing is not affected. He claims he walks well and does not hold onto anything. Review of systems: As per history of present illness and below otherwise all systems reviewed and negative. Past medical history: As per history of present illness and as reviewed below otherwise noncontributory. Surgical history: As per history of present illness and as reviewed below otherwise noncontributory. Social history: No reported history of drug or alcohol abuse. Family history: As per history of present illness and as reviewed below otherwise noncontributory. Physical exam: Constitutional - well developed, well-nourished and in no acute distress HEENT - normocephalic, no evidence of trauma - external nose and mouth normal - no mass in neck and no JVD - mucosae moist. TMs normal but left ear canal has some erythema of the soft tissues. He denies cleaning with cotton tip applicators or anything else in his ear. EYES - full EOM, PERRL, no icterus - no evidence of inflammation, injection, or drainage Respiratory - no respiratory distress, equal bilateral expansion, lungs clear to auscultation and no abnormal lung sounds Cardiovascular - Regular Rhythm with S1 and S2 appreciated and no murmur, gallop or rub. GI - abdomen soft without distension or organomegaly - normal bowel sounds - no guard or rebound Musculoskeletal no gross deformity of long bones or joints - no tenderness, swelling or edema Neurologic - Alert and oriented times four - CN II-XII grossly intact - motor sensory and coordination symmetrically normal except for a broad-based short stepped gait. He claims that is new today. Psychiatric - appropriate mood and affect with normal thought content Hematologic - No petechiae or purpura - mucosa appropriate color and sclera not pale - normal nail bed color and refill Integument - no rash or evidence of trauma - normal turgor Diagnostics: [] Therapeutics: [] Impression: [] Plan: [] Definitive disposition and diagnosis as appropriate pending reevaluation and review of above. - Related Data Allergies Allergy/AdvReac Type Severity Reaction Status Date / Time No Known Allergies Allergy Verified 01/15/21 09:39 Home Meds: Home Meds Aspirin [Adult Low Dose Aspirin EC] 81 mg PO DAILY 12/30/15 [History] Cholecalciferol (Vitamin D3) [Vitamin D3] 1,000 unit PO DAILY 12/30/15 [History] Glimepiride [Amaryl] 4 mg PO BID 12/30/15 [History] Loratadine [Claritin] 10 mg PO DAILY 12/30/15 [History] Losartan Potassium [Cozaar] 50 mg PO DAILY 12/30/15 [History] Meloxicam 15 mg PO BEDTIME PRN 12/30/15 [History] SitaGLIPtin [Januvia] 100 mg PO DAILY 12/30/15 [History] atorvaSTATin Calcium [Atorvastatin Calcium] 20 mg PO BEDTIME 12/30/15 [History] metFORMIN HCl [Metformin HCl] 1,000 mg PO BID 12/30/15 [History] Gabapentin [Neurontin] 300 mg PO BID 11/17/16 [History] Hydrochlorothiazide 25 mg PO DAILY 03/15/17 [History] Mirtazapine 60 mg PO BEDTIME 03/30/17 [History] OLANZapine [ZyPREXA] 10 mg PO BID 03/30/17 [History] traZODone HCl [Trazodone HCl] 225 mg PO BEDTIME 03/30/17 [History] amLODIPine [Norvasc] 5 mg PO DAILY 07/26/18 [History] ClonazePAM [KlonoPIN] 0.5 mg PO TID 01/15/19 [History] Terbinafine [LamISIL] 250 mg PO DAILY 01/15/19 [History] Ibuprofen [Motrin] 800 mg PO QID PRN 10 Days #40 tab 09/04/20 [Rx] Meclizine [Antivert] 25 mg PO TID PRN #15 tab 10/31/20 [Rx] Meclizine [Antivert] 25 mg PO TID PRN #20 tab 01/15/21 [Rx] Past Medical History - Past Health History Medical/Surgical History: Denies Medical/Surgical History HEENT History: Reports: None Cardiovascular History: Reports: High Cholesterol, Hypertension Respiratory History: Reports: None Gastrointestinal History: Reports: None Genitourinary History: Reports: None Musculoskeletal History: Reports: Arthritis Neurological History: Reports: None Psychiatric History: Reports: Anxiety, Depression, Mood Swings, Psych Hospitalization(s), Schizophrenia, Suicidal Ideation Endocrine/Metabolic History: Reports: Diabetes, Type II, Obesity/BMI 30+ Hematologic History: Reports: None Immunologic History: Reports: None Oncologic (Cancer) History: Reports: None Dermatologic History: Reports: None - Infectious Disease History Infectious Disease History: Reports: Chicken Pox - Past Surgical History Head Surgeries/Procedures: Reports: None HEENT Surgical History: Reports: None Cardiovascular Surgical History: Reports: None GI Surgical History: Reports: Hernia Repair/Other Male Surgical History: Reports: None Endocrine Surgical History: Reports: None Neurological Surgical History: Reports: None Musculoskeletal Surgical History: Reports: None Dermatological Surgical History: Reports: None Social & Family History - Family History Family Medical History: No Pertinent Family History - Tobacco Use Tobacco Use Status *Q: Current Every Day Tobacco User Years of Tobacco use: 30 Packs/Tins Daily: 2 - Caffeine Use Caffeine Use: Reports: Coffee, Soda Caffeine Use Comment: 1-2 cups per day - Recreational Drug Use Recreational Drug Use: No - Living Situation & Occupation Living situation: Reports: Alone Occupation: Disabled ED ROS GENERAL - Review of Systems Review Of Systems: Comprehensive ROS is negative, except as noted in HPI. ED EXAM, GENERAL - Physical Exam Exam: See Below Free Text/Narrative:: My physical exam is in the HPI #1 Interpretation EKG Interpretation Comments: EKG sinus rhythm heart rate 89 GA interval 127 [place] 72 QRS duration [address] elevation. Impression no acute injury or arrhythmia. Course - Vital Signs Text/Narrative:: 11:14 AM patient feels better after therapy here. Last Recorded V/S: Last Vital Signs Temp 36.6 C 01/15/21 09:39 Pulse 99 01/15/21 09:39 Resp 18 01/15/21 09:39 BP 138/85 01/15/21 09:39 Pulse Ox 95 01/15/21 09:39 - Orders/Labs/Meds Orders: Active Orders 24 hr Category Date Time Status EKG 12 Lead [EKG Documentation Completion] [RC] URGENT Care 01/15/21 10:29 Active Sodium Chloride 0.9% [Saline Flush] Med 01/15/21 10:10 Active 10 ml FLUSH ASDIRECTED PRN Sodium Chloride 0.9% [Saline Flush] Med 01/15/21 10:10 Active 2.5 ml FLUSH ASDIRECTED PRN Saline Lock Insert [OM.PC] Stat Oth 01/15/21 10:11 Ordered Medication Orders Sodium Chloride (Sodium Chloride 0.9% 10 Ml Syringe) 10 ml FLUSH ASDIRECTED PRN PRN Reason: Keep Vein Open Last Admin: 01/15/21 10:31 Dose: 10 ml Documented by: MYLENE Sodium Chloride (Sodium Chloride 0.9% 2.5 Ml Syringe) 2.5 ml FLUSH ASDIRECTED PRN PRN Reason: Keep Vein Open Last Admin: 01/15/21 10:31 Dose: 2.5 ml Documented by: MYLENE Labs: Laboratory Tests 01/15/21 01/15/21 01/15/21 Range/Units 10:35 10:35 10:35 WBC 8.02 (4.0-11.0) K/uL RBC 4.34 L (4.50-5.90) M/uL Hgb 14.3 (13.0-17.0) g/dL Hct 41.6 (38.0-50.0) % MCV 95.9 (80.0-98.0) fL MCH 32.9 H (27.0-32.0) pg MCHC 34.4 (31.0-37.0) g/dL RDW Std Deviation 45.6 (28.0-62.0) fl RDW Coeff of Bibi 13 (11.0-15.0) % Plt Count 210 (150-400) K/uL MPV 10.30 (7.40-12.00) fL Neut % (Auto) 68.9 (48.0-80.0) % Lymph % (Auto) 22.6 (16.0-40.0) % [place] % (Auto) 6.7 (0.0-15.0) % Eos % (Auto) 1.2 (0.0-7.0) % Baso % (Auto) 0.6 (0.0-1.5) % Neut # (Auto) 5.5 (1.4-5.7) K/uL Lymph # (Auto) 1.8 (0.6-2.4) K/uL [place] # (Auto) 0.5 (0.0-0.8) K/uL Eos # (Auto) 0.1 (0.0-0.7) K/uL Baso # (Auto) 0.1 (0.0-0.1) K/uL Nucleated RBC % 0.0 /100WBC Nucleated RBCs # 0 K/uL Sodium 128 L (136-148) mmol/L Potassium 4.2 (3.5-5.1) mmol/L Chloride 94 L (98-107) mmol/L Carbon Dioxide 27.0 (21.0-32.0) mmol/L BUN 9 (7.0-18.0) mg/dL Creatinine 1.2 (0.8-1.3) mg/dL Est Cr Clr Drug Dosing 74.55 mL/min Estimated GFR (MDRD) > 60.0 ml/min Glucose 117 H (74-106) mg/dL Calcium 8.8 (8.5-10.1) mg/dL Magnesium 1.9 (1.8-2.4) mg/dL Total Bilirubin 0.2 (0.2-1.0) mg/dL AST 13 L (15-37) IU/L ALT 25 (14-63) IU/L Alkaline Phosphatase 82 (46-116) U/L Total Protein 7.6 (6.4-8.2) g/dL Albumin 3.9 (3.4-5.0) g/dL Globulin 3.7 (2.6-4.0) g/dL Albumin/Globulin Ratio 1.1 (0.9-1.6) Urine Opiates Screen NEGATIVE (NEGATIVE) Ur Oxycodone Screen NEGATIVE (NEGATIVE) Urine Methadone Screen NEGATIVE (NEGATIVE) Ur Barbiturates Screen NEGATIVE (NEGATIVE) Ur Phencyclidine Scrn NEGATIVE (NEGATIVE) Ur Amphetamine Screen NEGATIVE (NEGATIVE) U Methamphetamines Scrn NEGATIVE (NEGATIVE) U Benzodiazepines Scrn NEGATIVE (NEGATIVE) U Cocaine Metab Screen NEGATIVE (NEGATIVE) U Marijuana (THC) Screen NEGATIVE (NEGATIVE) Ethyl Alcohol < 3.0 mg/dL Meds: Medications Generic Name Dose Route Start Last Admin Trade Name Freq PRN Reason Stop Dose Admin Sodium Chloride 10 ml 01/15/21 10:10 01/15/21 10:31 Sodium Chloride 0.9% 10 Ml Syringe FLUSH 10 ml ASDIRECTED PRN Administration Keep Vein Open Sodium Chloride 2.5 ml 01/15/21 10:10 01/15/21 10:31 Sodium Chloride 0.9% 2.5 Ml Syringe FLUSH 2.5 ml ASDIRECTED PRN Administration Keep Vein Open Discontinued Medications Generic Name Dose Route Start Last Admin Trade Name Freq PRN Reason Stop Dose Admin Sodium Chloride 1,000 mls @ 1,000 mls/hr 01/15/21 10:11 01/15/21 10:30 Normal Saline IV 01/15/21 11:10 1,000 mls/hr .Bolus ONE Administration Meclizine HCl 50 mg 01/15/21 10:10 01/15/21 10:31 Meclizine 25 Mg Tab PO 01/15/21 10:11 50 mg ONETIME ONE Administration Departure - Departure Time of Disposition: 11:15 Disposition: Home, Self-Care 01 Condition: Good Clinical Impression: Dizziness, Hyponatremia Prescriptions: Meclizine [Antivert] 25 mg PO TID PRN #20 tab PRN Reason: Dizziness Instructions: Hyponatremia, [id number], Dizziness, [id number] Referrals: Binu Jimenez MD [Primary Care Provider] - Forms: ED Department Discharge Additional Instructions: [facility] - Primary Care [address] [place] [address] [place] [address] The following information is given to patients seen in the emergency department who are being discharged to home. This information is to outline your options for follow-up care. We provide all patients seen in our emergency department with a follow-up referral. The need for follow-up, as well as the timing and circumstances, are variable depending upon the specifics of your emergency department visit. If you don't have a primary care physician on staff, we will provide you with a referral. We always advise you to contact your personal physician following an emergency department visit to inform them of the circumstance of the visit and for follow-up with them and/or the need for any referrals to a consulting specialist. The emergency department will also refer you to a specialist when appropriate. This referral assures that you have the opportunity for follow-up care with a specialist. All of these measure are taken in an effort to provide you with optimal care, which includes your follow-up. Under all circumstances we always encourage you to contact your private physician who remains a resource for coordinating your care. When calling for follow-up care, please make the office aware that this follow-up is from your recent emergency room visit. If for any reason you are refused follow-up, please contact the [facility] Emergency Department at and asked to speak to the emergency department charge nurse. Sepsis Event Note (ED) - Evaluation Sepsis Screening Result: No Definite Risk - Focused Exam Vital Signs: Vital Signs Temp Pulse Resp BP Pulse Ox 01/15/21 09:39 36.6 C 99 18 138/85 95 - My Orders Last 24 Hours: My Active Orders 01/15/21 10:10 Sodium Chloride 0.9% [Saline Flush] 10 ml FLUSH ASDIRECTED PRN Sodium Chloride 0.9% [Saline Flush] 2.5 ml FLUSH ASDIRECTED PRN 01/15/21 10:11 Saline Lock Insert [OM.PC] Stat 01/15/21 10:29 EKG 12 Lead [EKG Documentation Completion] [RC] URGENT - Assessment/Plan Last 24 Hours: My Active Orders 01/15/21 10:10 Sodium Chloride 0.9% [Saline Flush] 10 ml FLUSH ASDIRECTED PRN Sodium Chloride 0.9% [Saline Flush] 2.5 ml FLUSH ASDIRECTED PRN 01/15/21 10:11 Saline Lock Insert [OM.PC] Stat 01/15/21 10:29 EKG 12 Lead [EKG Documentation Completion] [RC] URGENT
[2021-01-15] MEDS ORDERED: Sodium Chloride 0.9% 2.5 ML Syringe FLUSH PRN (10:10)
[2021-01-15] MEDS ORDERED: Meclizine 25 MG Tab PO ONE (10:10)
[2021-01-15] MEDS ORDERED: Sodium Chloride 0.9% 10 ML Syringe FLUSH PRN (10:10)
[2021-01-15] MEDS ORDERED: Sodium Chloride 0.9% 1,000 ML IV ONE (10:11)
[2021-01-15 11:04] LABS: BLOOD UREA NITROGEN,BUN 9 mg/dL (7.0-18.0); CHLORIDE,CL 94 mmol/L (98-107); GLUCOSE RANDOM 117 mg/dL (74-106); POTASSIUM,K 4.2 mmol/L (3.5-5.1); SODIUM,NA 128 mmol/L (136-148)
[2021-01-15 11:18] VITALS: BP 130/86; PULSE 86
== END 2021-01-15 11:20 | disposition home or self-care (01) ==
LOC: MW.ED 09:09
DX: R42 Dizziness and giddiness (principal); E87.0 Hyperosmolality and hypernatremia; E78.00 Pure hypercholesterolemia, unspecified; I10 Essential (primary) hypertension; E11.9 Type 2 diabetes mellitus without complications; E66.9 Obesity, unspecified; Z68.28 Body mass index [BMI] 28.0-28.9, adult; Z72.0 Tobacco use
CPT/HCPCS: 36415; 80053; 80305; 80307; 83735; 85025; 93005; 99284; A9270; J7030; 93010; 99283

== ENCOUNTER 2021-01-22 09:35 | Emergency (ER) | payer MEDICARE, MEDICAID ==
--- NOTE | 2021-01-22 09:49 | EDM.PDOC ---
ED HPI GENERAL MEDICAL PROBLEM - General Chief Complaint: Neuro Symptoms/Deficits Stated Complaint: R SIDE OF FACE PAIN, DIZZY Time Seen by Provider: 01/22/21 09:46 Source of Information: Reports: Patient History Limitations: Reports: No Limitations - History of Present Illness INITIAL COMMENTS - FREE TEXT/NARRATIVE: 55-year-old male past medical history depression, schizophrenia, anxiety, diabetes, hypertension, history of subarachnoid hemorrhage, alcohol abuse, multiple ER visits for dizziness and anxiety presents for facial swelling and dizziness. Patient notes that he had a dental extraction yesterday. He had several shots in the face for numbing. He notes persistent numbness and swelling to the outside of the face, right side of the face. He denies any fevers, difficulty swallowing, difficulty breathing. He also complains of dizziness. He has been seen here several times for dizziness and states it feels about the same. Room spinning sensation. No nausea or vomiting. No fevers. head Pain Score (Numeric/FACES): 10 - Related Data Allergies Allergy/AdvReac Type Severity Reaction Status Date / Time No Known Allergies Allergy Verified 01/22/21 09:59 Home Meds: Home Meds Aspirin [Adult Low Dose Aspirin EC] 81 mg PO DAILY 12/30/15 [History] Cholecalciferol (Vitamin D3) [Vitamin D3] 1,000 unit PO DAILY 12/30/15 [History] Glimepiride [Amaryl] 4 mg PO BID 12/30/15 [History] Loratadine [Claritin] 10 mg PO DAILY 12/30/15 [History] Losartan Potassium [Cozaar] 50 mg PO DAILY 12/30/15 [History] Meloxicam 15 mg PO BEDTIME PRN 12/30/15 [History] SitaGLIPtin [Januvia] 100 mg PO DAILY 12/30/15 [History] atorvaSTATin Calcium [Atorvastatin Calcium] 20 mg PO BEDTIME 12/30/15 [History] metFORMIN HCl [Metformin HCl] 1,000 mg PO BID 12/30/15 [History] Gabapentin [Neurontin] 300 mg PO BID 11/17/16 [History] Hydrochlorothiazide 25 mg PO DAILY 03/15/17 [History] Mirtazapine 60 mg PO BEDTIME 03/30/17 [History] OLANZapine [ZyPREXA] 10 mg PO BID 03/30/17 [History] traZODone HCl [Trazodone HCl] 225 mg PO BEDTIME 03/30/17 [History] amLODIPine [Norvasc] 5 mg PO DAILY 07/26/18 [History] ClonazePAM [KlonoPIN] 0.5 mg PO TID 01/15/19 [History] Terbinafine [LamISIL] 250 mg PO DAILY 01/15/19 [History] Ibuprofen [Motrin] 800 mg PO QID PRN 10 Days #40 tab 09/04/20 [Rx] Meclizine [Antivert] 25 mg PO TID PRN #15 tab 10/31/20 [Rx] Meclizine [Antivert] 25 mg PO TID PRN #20 tab 01/15/21 [Rx] Amoxicillin/Potassium Clav [Augmentin 875-125 Tablet] 1 each PO BID #13 tablet 01/22/21 [Rx] Past Medical History - Past Health History Medical/Surgical History: Denies Medical/Surgical History HEENT History: Reports: None Cardiovascular History: Reports: High Cholesterol, Hypertension Respiratory History: Reports: None Gastrointestinal History: Reports: None Genitourinary History: Reports: None Musculoskeletal History: Reports: Arthritis Neurological History: Reports: None Psychiatric History: Reports: Anxiety, Depression, Mood Swings, Psych Hospitalization(s), Schizophrenia, Suicidal Ideation Endocrine/Metabolic History: Reports: Diabetes, Type II, Obesity/BMI 30+ Hematologic History: Reports: None Immunologic History: Reports: None Oncologic (Cancer) History: Reports: None Dermatologic History: Reports: None - Infectious Disease History Infectious Disease History: Reports: Chicken Pox - Past Surgical History Head Surgeries/Procedures: Reports: None HEENT Surgical History: Reports: None Cardiovascular Surgical History: Reports: None GI Surgical History: Reports: Hernia Repair/Other Male Surgical History: Reports: None Endocrine Surgical History: Reports: None Neurological Surgical History: Reports: None Musculoskeletal Surgical History: Reports: None Dermatological Surgical History: Reports: None Social & Family History - Family History Family Medical History: No Pertinent Family History - Caffeine Use Caffeine Use: Reports: Coffee, Soda Caffeine Use Comment: 1-2 cups per day - Living Situation & Occupation Living situation: Reports: Alone Occupation: Disabled ED ROS GENERAL - Review of Systems Review Of Systems: Comprehensive ROS is negative, except as noted in HPI. ED EXAM, GENERAL - Physical Exam Exam: See Below Exam Limited By: No Limitations General Appearance: Alert, WD/WN, No Apparent Distress Ears: Normal External Exam Nose: Normal Inspection Throat/Mouth: Normal Inspection, Normal Oropharynx, Normal Voice, No Airway Compromise, Other (poor dentition) Head: Atraumatic, Other (right sided facial swelling; no erythema or fluctuance, no warmth, likely 2/2 anesthestic less likely infectious) Neck: Normal Inspection Respiratory/Chest: No Respiratory Distress, No Accessory Muscle Use Cardiovascular: Normal Peripheral Pulses Extremities: Normal Inspection Neurological: Alert Psychiatric: Normal Affect, Normal Mood Skin Exam: Warm, Dry, Intact, Normal Color Course - Vital Signs Last Recorded V/S: Last Vital Signs Temp 98.1 F 01/22/21 09:55 Pulse 115 H 01/22/21 09:55 Resp BP 158/91 H 01/22/21 09:55 Pulse Ox 95 01/22/21 09:55 - Orders/Labs/Meds Orders: Active Orders 24 hr Category Date Time Status EKG Documentation Completion [RC] STAT Care 01/22/21 09:59 Active Meds: Medications Discontinued Medications Generic Name Dose Route Start Last Admin Trade Name Donato PRN Reason Stop Dose Admin Amoxicillin/Clavulanate Potassium 1 tab 01/22/21 10:16 01/22/21 10:24 Amoxicillin/Clavulanate K 875-125 Mg Tab PO 01/22/21 10:17 1 tab ONETIME ONE Administration Meclizine HCl 25 mg 01/22/21 10:15 01/22/21 10:24 Meclizine 25 Mg Tab PO 01/22/21 10:16 25 mg ONETIME ONE Administration - Re-Assessments/Exams Free Text/Narrative Re-Assessment/Exam: 01/22/21 10:23 We will give meclizine for dizziness. EKG is unremarkable. Will give Augmentin for potential infection. Will discharge with Augmentin and meclizine. Recommend dental follow-up. Departure - Departure Time of Disposition: 10:34 Disposition: Home, Self-Care 01 Condition: Good Clinical Impression: Dizziness, Dental infection - Discharge Information Prescriptions: Amoxicillin/Potassium Clav [Augmentin 875-125 Tablet] 1 each PO BID #13 tablet Instructions: Dizziness, Dental Extraction Referrals: PCP,None [Primary Care Provider] - Forms: ED Department Discharge Additional Instructions: The following information is given to patients seen in the emergency department who are being discharged to home. This information is to outline your options for follow-up care. We provide all patients seen in our emergency department with a follow-up referral. The need for follow-up, as well as the timing and circumstances, are variable depending upon the specifics of your emergency department visit. If you don't have a primary care physician on staff, we will provide you with a referral. We always advise you to contact your personal physician following an emergency department visit to inform them of the circumstance of the visit and for follow-up with them and/or the need for any referrals to a consulting specialist. The emergency department will also refer you to a specialist when appropriate. This referral assures that you have the opportunity for follow-up care with a specialist. All of these measure are taken in an effort to provide you with optimal care, which includes your follow-up. Under all circumstances we always encourage you to contact your private physician who remains a resource for coordinating your care. When calling for follow-up care, please make the office aware that this follow-up is from your recent emergency room visit. If for any reason you are refused follow-up, please contact the [facility] Emergency Department at and asked to speak to the emergency department charge nurse. Please follow up with your primary care physician. If you do not have a primary care physician, see below: [facility] [place] [id number] [address] [address] [facility] [address] [place] [id number] Sepsis Event Note (ED) - Focused Exam Vital Signs: Vital Signs Temp Pulse BP Pulse Ox 01/22/21 09:55 98.1 F 115 H 158/91 H 95 - My Orders Last 24 Hours: My Active Orders 01/22/21 09:59 EKG Documentation Completion [RC] STAT - Assessment/Plan Last 24 Hours: My Active Orders 01/22/21 09:59 EKG Documentation Completion [RC] STAT
[2021-01-22] MEDS ORDERED: Meclizine 25 MG Tab PO ONE (10:15)
[2021-01-22] MEDS ORDERED: Amoxicillin/Clavulanate K 875-125 MG Tab PO ONE (10:16)
[2021-01-22 10:56] VITALS: BP 150/81; PULSE 101
== END 2021-01-22 10:56 | disposition home or self-care (01) ==
LOC: MW.ED 09:35
DX: R42 Dizziness and giddiness (principal); K04.7 Periapical abscess without sinus; E78.00 Pure hypercholesterolemia, unspecified; I10 Essential (primary) hypertension; M19.90 Unspecified osteoarthritis, unspecified site; E11.9 Type 2 diabetes mellitus without complications; E66.9 Obesity, unspecified; Z68.28 Body mass index [BMI] 28.0-28.9, adult; Z79.82 Long term (current) use of aspirin; Z79.84 Long term (current) use of oral hypoglycemic drugs; Z79.899 Other long term (current) drug therapy
CPT/HCPCS: 93005; 99284; A9270

== ENCOUNTER 2021-02-04 14:03 | Emergency (ER) | payer MEDICARE, MEDICAID ==
--- NOTE | 2021-02-04 14:06 | EDM.PDOC ---
ED HPI GENERAL MEDICAL PROBLEM - General Stated Complaint: VERTIGO Time Seen by Provider: 02/04/21 14:06 Source of Information: Reports: Patient History Limitations: Reports: No Limitations - History of Present Illness INITIAL COMMENTS - FREE TEXT/NARRATIVE: HISTORY AND PHYSICAL: History of present illness: Patient is a 55-year-old male who presents to the emergency room with complaints of right sided facial droop and dizziness since dental extraction on 01/21/2021 (14 days ago). Patient reports since having the dental extraction he has had facial drooping, which has not improved. He did have a course of antibiotics which he reports did not improve the symptoms. Patient has a longstanding history of vertigo and dizziness. This episode has been since his dental extraction, reporting its been constant, not improved or worsen with movement. Patient denies injury, trauma or falls. He denies any unilateral weakness, difficulty with ambulation, numbness or tingling. He denies any fever, chills, headache, change in vision, syncope or near syncope. Denies any chest pain, back pain, shortness of breath or cough. Denies any abdominal pain, nausea, vomiting, diarrhea, constipation or dysuria. Has not noted any blood in urine or stool. Patient has been eating and drinking appropriately. Past medical history of depression, schizophrenia, anxiety, diabetes, hypertension, alcohol abuse and subarachnoid hemorrhage. Review of systems: As per history of present illness and below otherwise all systems reviewed and negative. Past medical history: As per history of present illness and as reviewed below otherwise noncontributory. Surgical history: As per history of present illness and as reviewed below otherwise noncontributory. Social history: See social history for further information Family history: As per history of present illness and as reviewed below otherwise noncontributory. Physical exam: General: Well developed and well nourished. Alert and orientated x 3. Nontoxic in appearance and in no acute distress. Vital signs are stable and have been reviewed by me. Nursing notes were reviewed. HEENT: Atraumatic, normocephalic, pupils equal and reactive bilaterally, n egative for conjunctival pallor or scleral icterus, mucous membranes moist, TMs normal bilaterally, throat clear, neck supple, nontender, trachea midline. No drooling or trismus noted. No meningeal signs. No hot potato voice noted. Lungs: Clear to auscultation bilaterally. No wheezes, rales, or rhonchi. Chest nontender. Normal work of breathing, no accessory muscles used. Heart: S1S2, regular rate and rhythm without overt murmur, gallops, or rubs. No JVD. No peripheral edema Abdomen: Soft, nondistended, nontender. Normoactive bowel sounds. Negative for masses or costovertebral tenderness. Skin: Intact, warm, dry. No lesions or rashes noted. Hematologic: No petechiae or purpra. Mucosa appropriate color and normal nail bed color and refill. Extremities: Atraumatic, moves all extremities per self without difficulty or deficits, negative for cords or calf pain. Neurovascular unremarkable. Neuro: Awake, alert, oriented. Cranial nerves II through XII unremarkable. Cerebellum unremarkable. Motor and sensory unremarkable throughout. Exam nonfocal. Psychiatric: Mood and affect are appropriate. Normal thought process. Answering questions appropriately. Notes: *This patient was seen and evaluated during the 2019 SARS-CoV-2 novel coronavirus pandemic period. Community viral transmission is ongoing at time of this encounter and the emergency department is operating under pandemic response procedures. Patient is a 55-year-old male who presents to the emergency room with a [facility] caregiver with complaints of right-sided facial drooping and dizziness x 2 weeks. Patient was evaluated in our emergency room on 01/22/2021 and seen again today at a walk-in clinic. Patient states his symptoms have not changed since having a dental extraction on 01/21/2021. He does have a longstanding history of dizziness, states this is usual for him and has been using meclizine without much relief. Patient does have notable drooping to the right side of his mouth although has clear speech and able to swallow/eat/drink without difficulty. He has no weakness to the upper or lower extremities. 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 Denies any urinary or fecal incontinence. He is ambulatory and able to provide self-cares. Patient does have a slight leukocytosis, will add a CT of the neck as he states he has had a mild sore throat and facial swelling since the dental surgery. EKG is unremarkable with rate of 92, sinus rhythm. No ST/ischemic concerns. Negative troponin. Vital signs are stable. Dr Warren Chacko, is the attending physician today and had actually seen this patient when he was in the ER on 01/22/2021. He states the facial droop is similar to when he was evaluated at that time. Patient continues to have no neurological deficits. Strong and equal strength to upper and lower extremities bilaterally. Head CT is unremarkable. CT Right intraparotid soft tissue mass measuring up to 2.6 cm. 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 Consider biopsy. Smaller intraparotid oval nodular density superiorly likely a prominent intraparotid lymph node. No evidence of dental abscess. I have talked with the patient about today's findings, in addition to providing specific details for plan of care. There is research that suggests that this parotid mass could be causing a facial nerve paralysis. I did review this with the patient and encouraged him to follow-up as he will likely need a biopsy. Patient continues to be neurologically intact. Reassessment at the time of disposition demonstrates that the patient is in no acute distress. The patient is stable for discharge, counseling was provided and we discussed in great detail signs and symptoms that would prompt them to return to the Emergency Department. Medication, follow up and supportive care measures were reviewed and discussed. Voices understanding and is agreeable to plan of care. Denies any further questions or concerns at this time. Diagnostics: CBC, CMP, Troponin, EKG, Head CT Therapeutics: SL Prescription: None Impression: Parotid mass Plan: 1. You were evaluated today on an emergent basis. Your lab work was normal. Your CT of the neck does note a right intraparotid soft tissue mass. 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 Please follow up with ENT specialist as they may want to perform a biopsy for definitive diagnosis. The mass could be pressing on a facial nerve that is causing the facial droop. 2. You can alternate Tylenol and ibuprofen as needed for pain and fever management. 3. We encourage you to follow up with your primary care provider and/or ENT specialist in the next few days for re-evaluation and further care/management. 4. If your symptoms should worsen, new symptoms develop or any of the signs and symptoms we discussed should arise please return to the emergency room or call 911 (if needed). Definitive disposition and diagnosis as appropriate pending reevaluation and review of above. headache Pain Score (Numeric/FACES): 5 - Related Data Allergies Allergy/AdvReac Type Severity Reaction Status Date / Time No Known Allergies Allergy Verified 02/04/21 14:20 Home Meds: Home Meds Aspirin [Adult Low Dose Aspirin EC] 81 mg PO DAILY 12/30/15 [History] Cholecalciferol (Vitamin D3) [Vitamin D3] 1,000 unit PO DAILY 12/30/15 [History] Glimepiride [Amaryl] 4 mg PO BID 12/30/15 [History] Loratadine [Claritin] 10 mg PO DAILY 12/30/15 [History] Losartan Potassium [Cozaar] 50 mg PO DAILY 12/30/15 [History] Meloxicam 15 mg PO DAILY PRN 12/30/15 [History] SitaGLIPtin [Januvia] 100 mg PO DAILY 12/30/15 [History] atorvaSTATin Calcium [Atorvastatin Calcium] 20 mg PO BEDTIME 12/30/15 [History] metFORMIN HCl [Metformin HCl] 1,000 mg PO BID 12/30/15 [History] Gabapentin [Neurontin] 300 mg PO TID 11/17/16 [History] Hydrochlorothiazide 25 mg PO DAILY 03/15/17 [History] Mirtazapine 45 mg PO BEDTIME 03/30/17 [History] OLANZapine [ZyPREXA] 10 mg PO BID 03/30/17 [History] traZODone HCl [Trazodone HCl] 100 mg PO BEDTIME 03/30/17 [History] amLODIPine [Norvasc] 5 mg PO DAILY 07/26/18 [History] ClonazePAM [KlonoPIN] 0.5 mg PO TID 01/15/19 [History] Albuterol Sulfate [Albuterol Sulfate HFA] 2 puff INH Q4HR PRN 02/04/21 [History] Budesonide/Formoterol [Symbicort 160-4.5 MCG] 2 puff INH BID 02/04/21 [History] Meclizine [Antivert] 25 mg PO DAILY PRN 02/04/21 [History] Nicotine [Nicotine Patch] 21 mg TD DAILY 02/04/21 [History] Past Medical History - Past Health History Medical/Surgical History: Denies Medical/Surgical History HEENT History: Reports: None Cardiovascular History: Reports: High Cholesterol, Hypertension Respiratory History: Reports: None Gastrointestinal History: Reports: None Genitourinary History: Reports: None Musculoskeletal History: Reports: Arthritis Neurological History: Reports: None Psychiatric History: Reports: Anxiety, Depression, Mood Swings, Psych Hospitalization(s), Schizophrenia, Suicidal Ideation Endocrine/Metabolic History: Reports: Diabetes, Type II, Obesity/BMI 30+ Hematologic History: Reports: None Immunologic History: Reports: None Oncologic (Cancer) History: Reports: None Dermatologic History: Reports: None - Infectious Disease History Infectious Disease History: Reports: Chicken Pox - Past Surgical History Head Surgeries/Procedures: Reports: None HEENT Surgical History: Reports: None Cardiovascular Surgical History: Reports: None GI Surgical History: Reports: Hernia Repair/Other Male Surgical History: Reports: None Endocrine Surgical History: Reports: None Neurological Surgical History: Reports: None Musculoskeletal Surgical History: Reports: None Dermatological Surgical History: Reports: None Social & Family History - Family History Family Medical History: No Pertinent Family History - Caffeine Use Caffeine Use: Reports: Coffee, Soda Caffeine Use Comment: 1-2 cups per day - Living Situation & Occupation Living situation: Reports: Alone Occupation: Disabled ED ROS GENERAL - Review of Systems Review Of Systems: Comprehensive ROS is negative, except as noted in HPI. ED EXAM, GENERAL - Physical Exam Exam: See Below (See dictation) Course - Vital Signs Last Recorded V/S: Last Vital Signs Temp 96.8 F L 02/04/21 14:16 Pulse 85 02/04/21 16:49 Resp 17 02/04/21 16:49 BP 150/87 H 02/04/21 16:49 Pulse Ox 95 02/04/21 16:49 Orthostatic Blood Pressure [ 134/80 Standing] Orthostatic Blood Pressure [ 147/83 Sitting] Orthostatic Blood Pressure [ 151/86 Supine] - Orders/Labs/Meds Orders: Active Orders 24 hr Category Date Time Status Saline Lock Insert [OM.PC] Stat Oth 02/04/21 14:21 Ordered Labs: Laboratory Tests 02/04/21 02/04/21 Range/Units 14:22 14:22 WBC 12.08 H (4.0-11.0) K/uL RBC 4.20 L (4.50-5.90) M/uL Hgb 13.9 (13.0-17.0) g/dL Hct 40.1 (38.0-50.0) % MCV 95.5 (80.0-98.0) fL MCH 33.1 H (27.0-32.0) pg MCHC 34.7 (31.0-37.0) g/dL RDW Std Deviation 45.1 (28.0-62.0) fl RDW Coeff of Bibi 13 (11.0-15.0) % Plt Count 242 (150-400) K/uL MPV 10.10 (7.40-12.00) fL Neut % (Auto) 73.7 (48.0-80.0) % Lymph % (Auto) 19.0 (16.0-40.0) % [place] % (Auto) 6.3 (0.0-15.0) % Eos % (Auto) 0.5 (0.0-7.0) % Baso % (Auto) 0.5 (0.0-1.5) % Neut # (Auto) 8.9 H (1.4-5.7) K/uL Lymph # (Auto) 2.3 (0.6-2.4) K/uL [place] # (Auto) 0.8 (0.0-0.8) K/uL Eos # (Auto) 0.1 (0.0-0.7) K/uL Baso # (Auto) 0.1 (0.0-0.1) K/uL Nucleated RBC % 0.0 /100WBC Nucleated RBCs # 0 K/uL Sodium 132 L (136-148) mmol/L Potassium 4.2 (3.5-5.1) mmol/L Chloride 95 L (98-107) mmol/L Carbon Dioxide 27.9 (21.0-32.0) mmol/L BUN 9 (7.0-18.0) mg/dL Creatinine 1.1 (0.8-1.3) mg/dL Est Cr Clr Drug Dosing 81.32 mL/min Estimated GFR (MDRD) > 60.0 ml/min Glucose 87 (74-106) mg/dL Calcium 9.9 (8.5-10.1) mg/dL Total Bilirubin 0.5 (0.2-1.0) mg/dL AST 13 L (15-37) IU/L ALT 23 (14-63) IU/L Alkaline Phosphatase 79 (46-116) U/L Troponin I < 0.050 (0.000-0.056) ng/mL Total Protein 8.0 (6.4-8.2) g/dL Albumin 4.2 (3.4-5.0) g/dL Globulin 3.8 (2.6-4.0) g/dL Albumin/Globulin Ratio 1.1 (0.9-1.6) Meds: Medications Discontinued Medications Generic Name Dose Route Start Last Admin Trade Name Freq PRN Reason Stop Dose Admin Sodium Chloride 1,000 mls @ 999 mls/hr 02/04/21 15:14 02/04/21 15:41 Normal Saline IV 02/04/21 16:14 999 mls/hr STAT ONE Administration Iopamidol 75 ml 02/04/21 15:44 02/04/21 15:45 Iopamidol 755 Mg/Ml 500 Ml Multipack Bottle IVPUSH 02/04/21 15:45 75 ml ONETIME ONE Administration Sodium Chloride 10 ml 02/04/21 14:21 02/04/21 15:41 Sodium Chloride 0.9% 10 Ml Syringe FLUSH 10 ml ASDIRECTED PRN Administration Keep Vein Open Sodium Chloride 2.5 ml 02/04/21 14:21 02/04/21 15:41 Sodium Chloride 0.9% 2.5 Ml Syringe FLUSH 2.5 ml ASDIRECTED PRN Administration Keep Vein Open Departure - Departure Time of Disposition: 16:32 Disposition: Home, Self-Care 01 Clinical Impression: Parotid mass - Discharge Information Instructions: Parotitis, [id number] Referrals: PCP,None [Primary Care Provider] - Forms: ED Department Discharge Additional Instructions: The following information is given to patients seen in the emergency department who are being discharged to home. This information is to outline your options for follow-up care. We provide all patients seen in our emergency department with a follow-up referral. The need for follow-up, as well as the timing and circumstances, are variable depending upon the specifics of your emergency department visit. If you don't have a primary care physician on staff, we will provide you with a referral. We always advise you to contact your personal physician following an emergency department visit to inform them of the circumstance of the visit and for follow-up with them and/or the need for any referrals to a consulting specialist. The emergency department will also refer you to a specialist when appropriate. This referral assures that you have the opportunity for follow-up care with a specialist. All of these measure are taken in an effort to provide you with optimal care, which includes your follow-up. Under all circumstances we always encourage you to contact your private physician who remains a resource for coordinating your care. When calling for follow-up care, please make the office aware that this follow-up is from your recent emergency room visit. If for any reason you are refused follow-up, please contact the [facility] Emergency Department at and asked to speak to the emergency department charge nurse. [facility] [address] [place] [id number] [address] Thank you for choosing the [facility] emergency department in [place] for your medical needs today. It was a pleasure caring for you. Today you were seen in the emergency department for facial drooping and dizziness. 1. You were evaluated today on an emergent basis. Your lab work was normal. Your CT of the neck does note a right intraparotid soft tissue mass. 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 Please follow up with ENT specialist as they may want to perform a biopsy for definitive diagnosis. The mass could be pressing on a facial nerve that is causing the facial drooping. 2. You can alternate Tylenol and ibuprofen as needed for pain and fever management. 3. We encourage you to follow up with your primary care provider and/or ENT specialist in the next few days for re-evaluation and further care/management. 4. If your symptoms should worsen, new symptoms develop or any of the signs and symptoms we discussed should arise please return to the emergency room or call 911 (if needed). Sepsis Event Note (ED) - Focused Exam Vital Signs: Vital Signs Temp Pulse Resp BP Pulse Ox 02/04/21 16:49 85 17 150/87 H 95 02/04/21 15:42 88 16 149/77 H 95 02/04/21 14:16 96.8 F L 100 18 140/86 94 L - My Orders Last 24 Hours: My Active Orders 02/04/21 14:21 Saline Lock Insert [OM.PC] Stat - Assessment/Plan Last 24 Hours: My Active Orders 02/04/21 14:21 Saline Lock Insert [OM.PC] Stat
[2021-02-04] MEDS ORDERED: Sodium Chloride 0.9% 10 ML Syringe FLUSH PRN (14:21)
[2021-02-04] MEDS ORDERED: Sodium Chloride 0.9% 2.5 ML Syringe FLUSH PRN (14:21)
--- NOTE | 2021-02-04 14:36 | PCM.EKG ---
#1 Interpretation EKG Date: 02/04/21 Time: 14:30 Rhythm: NSR Rate (Beats/Min): 92 [place]: Normal P-Wave: Present QRS: Normal ST-T: Normal QT: Normal DE/PQ Interval: 142 EKG Interpretation Comments: normal EKG
--- NOTE | 2021-02-04 14:58 | CT ---
INDICATION: Right-sided facial droop, recent dental surgery TECHNIQUE: CT head without contrast. COMPARISON: 10/31/2020 FINDINGS: CSF spaces: Within normal limits for age. Brain parenchyma: The miller-white differentiation is normal. No sign of mass, hemorrhage, or midline shift. Skull base and calvarium: The visualized paranasal sinuses and mastoid air cells demonstrate no acute or significant findings. The visualized orbits are grossly unremarkable. No skull fractures. IMPRESSION: Unremarkable noncontrast head CT. Please note that all CT scans at this facility use dose modulation, iterative reconstruction, and/or weight-based dosing when appropriate to reduce radiation dose to as low as reasonably achievable. Dictated by Karthik Camarillo MD @ 02/04/2021 2:56:[address] Karthik Camarillo @ Feb 04 2021 2:56PM
[2021-02-04 15:07] LABS: BLOOD UREA NITROGEN,BUN 9 mg/dL (7.0-18.0); CARBON DIOXIDE,CO2 27.9 mmol/L (21.0-32.0); CHLORIDE,CL 95 mmol/L (98-107); GLUCOSE RANDOM 87 mg/dL (74-106); POTASSIUM,K 4.2 mmol/L (3.5-5.1); SODIUM,NA 132 mmol/L (136-148)
[2021-02-04] MEDS ORDERED: Sodium Chloride 0.9% 1,000 ML IV ONE (15:14)
[2021-02-04] MEDS ORDERED: Iopamidol 755 MG/ML 500 ML Multipack Bottle IVPUSH ONE (15:44)
--- NOTE | 2021-02-04 16:22 | CT ---
Indication: Recent dental surgery, facial droop, right-sided swelling Technique: Nonenhanced axial CT imaging through the neck. Sagittal and coronal reconstructions are provided. Comparison: None Findings: There is a 1.6 x 2.4 x 2.6 cm (AP x transverse x cc) oval soft tissue mass in the inferior aspect of the right parotid gland. Additional 0.9 x 0.8 x 1.0 cm oval intraparotid soft tissue nodule superiorly. No significant parotid edema. No evidence of pharyngeal mucosal lesion. No parapharyngeal or retropharyngeal edema. No evidence of icing mixer space or submandibular space abscess. Unremarkable tongue, tongue base, and floor of mouth. Unremarkable thyroid gland. The visualized paranasal sinuses and mastoid air cells are aerated. No significant abnormality demonstrated within the visualized orbits and intracranial compartment. The included lung apices are clear. Multilevel cervical degenerative disc disease of C5-6 and C6-7. Impression: 1. Right intraparotid soft tissue mass measuring up to 2.6 cm. 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 Consider biopsy. 2. Smaller intraparotid oval nodular density superiorly likely a prominent intraparotid lymph node. 3. No evidence of dental abscess. Please note that all CT scans at this facility use dose modulation, iterative reconstruction, and/or weight-based dosing when appropriate to reduce radiation dose to as low as reasonably achievable. Dictated by Rama Alfonso MD @ 02/04/2021 4:20:[address] Rama Alfonso @ Feb 04 2021 4:20PM
[2021-02-04 16:50] VITALS: BP 150/87; PULSE 85
== END 2021-02-04 16:50 | disposition home or self-care (01) ==
LOC: MW.ED 14:03
DX: K11.8 Other diseases of salivary glands (principal); E11.9 Type 2 diabetes mellitus without complications; E66.9 Obesity, unspecified; E78.00 Pure hypercholesterolemia, unspecified; I10 Essential (primary) hypertension; Z68.30 Body mass index [BMI] 30.0-30.9, adult; Z79.82 Long term (current) use of aspirin; Z79.899 Other long term (current) drug therapy; Z79.84 Long term (current) use of oral hypoglycemic drugs
CPT/HCPCS: 36415; 70450; 70491; 80053; 84484; 85025; 93005; 99284; J7030; Q9967; 99283

== ENCOUNTER 2021-04-14 09:59 | Emergency (ER) | payer MEDICARE, MEDICAID ==
[2021-04-14] MEDS ORDERED: Sodium Chloride 0.9% 1,000 ML IV ONE (10:04)
--- NOTE | 2021-04-14 10:05 | PCM.EKG ---
#1 Interpretation Time: 10:05 EKG Interpretation Comments: 94, normal sinus rhythm, minor J-point elevation in aVF. Wavy baseline in lead III. No technical STEMI.
--- NOTE | 2021-04-14 10:10 | EDM.PDOC ---
ED HPI GENERAL MEDICAL PROBLEM - General Time Seen by Provider: 04/14/21 10:05 Source of Information: Reports: Patient History Limitations: Reports: No Limitations - History of Present Illness INITIAL COMMENTS - FREE TEXT/NARRATIVE: HISTORY AND PHYSICAL: History of present illness: Patient is a 55-year-old male who presents to the emergency room with EMS after having been found sleeping in the hallway at his apartment complex. Patient states he had been drinking this morning and fell asleep in the hallway. He is currently alert, oriented and offers no complaints or concerns at this time. Patient has a longstanding history of alcohol abuse, mental health issues, type 2 diabetes. EMS states the patient was easily arousable when they found him asleep in the hallway and he was ambulatory. Blood sugar on arrival was 166. Patient denies any falls, injury or trauma. He denies fever, chills, headache, change in vision, syncope or near syncope. Denies any chest pain, back pain, shortness of breath or cough. Denies any GI or symptoms. Review of systems: As per history of present illness and below otherwise all systems reviewed and negative. Past medical history: As per history of present illness and as reviewed below otherwise noncontributory. Surgical history: As per history of present illness and as reviewed below otherwise noncontributory. Social history: See social history for further information Family history: As per history of present illness and as reviewed below otherwise noncontributory. Physical exam: General: Well developed and well nourished 55-year-old male. Alert and orientate d x 3. Nontoxic in appearance and in no acute distress. Vital signs are stable and have been reviewed by me. Nursing notes were reviewed. HEENT: Atraumatic, normocephalic, pupils equal and reactive bilaterally, negative for conjunctival pallor or scleral icterus, mucous membranes moist, TMs normal bilaterally, throat clear, neck supple, nontender, trachea midline. No drooling or trismus noted. No meningeal signs. No hot potato voice noted. Lungs: Clear to auscultation bilaterally. No wheezes, rales, or rhonchi. Chest nontender. Normal work of breathing, no accessory muscles used. Heart: S1S2, regular rate and rhythm without overt murmur, gallops, or rubs. No JVD. No peripheral edema Abdomen: Soft, nondistended, nontender. Normoactive bowel sounds. Negative for masses or costovertebral tenderness. C-spine/Back: No pinpoint vertebral tenderness upon palpation. No crepitus, step-offs or obvious deformities. Patient is ambulatory into the emergency room without difficulty or deficit. Able to rock back on heels and walk on toes. Denies any urinary or fecal incontinence. Denies any numbness, tingling or saddle paresthesia. No concerns of serious infection, fracture or cord compression, or cauda equina syndrome. Deep tendon reflexes brisk bilaterally. Skin: Intact, warm, dry. No lesions or rashes noted. Hematologic: No petechiae or purpra. Mucosa appropriate color and normal nail be d color and refill. Extremities: Atraumatic, moves all extremities per self without difficulty or deficits, negative for cords or calf pain. Neurovascular unremarkable. Neuro: Awake, alert, oriented. Cranial nerves II through XII unremarkable. Cerebellum unremarkable. Motor and sensory unremarkable throughout. Exam nonfocal. Psychiatric: Mood and affect are appropriate. Normal thought process. Answering questions appropriately. Notes: *This patient was seen and evaluated during the 2019 SARS-CoV-2 novel coronavirus pandemic period. Community viral transmission is ongoing at time of this encounter and the emergency department is operating under pandemic response procedures. Patient is a 55-year-old male who presents to the emergency room by ambulance after a bystander found him asleep in the apartment complex hallway. Patient states he was drinking this morning and decided to sleep in the hallway. He denies any injury, trauma or falls. Physical exam is unremarkable. We will do a head CT as he states he has been drinking. Police stated they would take him to the detox unit once he is cleared here. Basic lab work will be done. Blood sugar is in normal limits. Vital signs are stable. Lab work is unremarkable. Declines to give a urine sample. This will not change plan of care. He has no urinary symptoms. Patient is anxious to leave. He continues to be alert, oriented and up ambulating without difficulty. I have talked with the patient about today's findings, in addition to providing specific details for plan of care. Reassessment at the time of disposition demonstrates that the patient is in no acute distress. The patient is stable for discharge, counseling was provided and we discussed in great detail signs and symptoms that would prompt them to return to the Emergency Department. Medication, follow up and supportive care measures were reviewed and discussed. Voices understanding and is agreeable to plan of care. Denies any further questions or concerns at this time. Diagnostics: CBC, CMP, Troponin, EKG, Chest x-ray Head CT Therapeutics: IV fluids Prescription: None Impression: Encounter for medical screening examination Alcohol use Plan: 1. You were evaluated today on an emergent basis. 2. You can alternate Tylenol and ibuprofen as needed for pain and fever management. 3. We encourage you to follow up with your primary care provider and/or recommended specialist in the next few days for re-evaluation and further care/management. 4. If your symptoms should worsen, new symptoms develop or any of the signs and symptoms we discussed should arise please return to the emergency room or call 911 (if needed). Definitive disposition and diagnosis as appropriate pending reevaluation and review of above. - Related Data Allergies Allergy/AdvReac Type Severity Reaction Status Date / Time No Known Allergies Allergy Verified 04/14/21 10:16 Home Meds: Home Meds Aspirin [Adult Low Dose Aspirin EC] 81 mg PO DAILY 12/30/15 [History] Cholecalciferol (Vitamin D3) [Vitamin D3] 1,000 unit PO DAILY 12/30/15 [History] Glimepiride [Amaryl] 4 mg PO BID 12/30/15 [History] Loratadine [Claritin] 10 mg PO DAILY 12/30/15 [History] Losartan Potassium [Cozaar] 50 mg PO DAILY 12/30/15 [History] Meloxicam 15 mg PO DAILY PRN 12/30/15 [History] SitaGLIPtin [Januvia] 100 mg PO DAILY 12/30/15 [History] atorvaSTATin Calcium [Atorvastatin Calcium] 20 mg PO BEDTIME 12/30/15 [History] metFORMIN HCl [Metformin HCl] 1,000 mg PO BID 12/30/15 [History] Gabapentin [Neurontin] 300 mg PO TID 11/17/16 [History] Hydrochlorothiazide 25 mg PO DAILY 03/15/17 [History] Mirtazapine 45 mg PO BEDTIME 03/30/17 [History] OLANZapine [ZyPREXA] 10 mg PO BID 03/30/17 [History] traZODone HCl [Trazodone HCl] 100 mg PO BEDTIME 03/30/17 [History] amLODIPine [Norvasc] 5 mg PO DAILY 07/26/18 [History] ClonazePAM [KlonoPIN] 0.5 mg PO TID 01/15/19 [History] Albuterol Sulfate [Albuterol Sulfate HFA] 2 puff INH Q4HR PRN 02/04/21 [History] Budesonide/Formoterol [Symbicort 160-4.5 MCG] 2 puff INH BID 02/04/21 [History] Meclizine [Antivert] 25 mg PO DAILY PRN 02/04/21 [History] Nicotine [Nicotine Patch] 21 mg TD DAILY 02/04/21 [History] Past Medical History - Past Health History Medical/Surgical History: Denies Medical/Surgical History HEENT History: Reports: None Cardiovascular History: Reports: High Cholesterol, Hypertension Respiratory History: Reports: None Gastrointestinal History: Reports: None Genitourinary History: Reports: None Musculoskeletal History: Reports: Arthritis Neurological History: Reports: None Psychiatric History: Reports: Anxiety, Depression, Mood Swings, Psych Hospitalization(s), Schizophrenia, Suicidal Ideation Endocrine/Metabolic History: Reports: Diabetes, Type II, Obesity/BMI 30+ Hematologic History: Reports: None Immunologic History: Reports: None Oncologic (Cancer) History: Reports: None Dermatologic History: Reports: None - Infectious Disease History Infectious Disease History: Reports: Chicken Pox - Past Surgical History Head Surgeries/Procedures: Reports: None HEENT Surgical History: Reports: None Cardiovascular Surgical History: Reports: None GI Surgical History: Reports: Hernia Repair/Other Male Surgical History: Reports: None Endocrine Surgical History: Reports: None Neurological Surgical History: Reports: None Musculoskeletal Surgical History: Reports: None Dermatological Surgical History: Reports: None Social & Family History - Family History Family Medical History: No Pertinent Family History - Caffeine Use Caffeine Use: Reports: Coffee, Soda Caffeine Use Comment: 1-2 cups per day - Living Situation & Occupation Living situation: Reports: Alone Occupation: Disabled ED ROS GENERAL - Review of Systems Review Of Systems: Comprehensive ROS is negative, except as noted in HPI. ED EXAM, GENERAL - Physical Exam Exam: See Below (See dictation) Course - Vital Signs Last Recorded V/S: Last Vital Signs Temp 97.8 F 04/14/21 10:16 Pulse 92 04/14/21 10:16 Resp 19 04/14/21 10:16 BP 114/73 08/19/21 10:16 Pulse Ox 95 04/14/21 10:16 - Orders/Labs/Meds Orders: Active Orders 24 hr Category Date Time Status UA RFX CLARICE AND CULT IF INDIC [URIN] Stat Lab 04/14/21 10:00 Ordered Labs: Laboratory Tests 04/14/21 04/14/21 Range/Units 11:16 11:16 WBC 6.20 (4.0-11.0) K/uL RBC 3.94 L (4.50-5.90) M/uL Hgb 12.7 L (13.0-17.0) g/dL Hct 36.5 L (38.0-50.0) % MCV 92.6 (80.0-98.0) fL MCH 32.2 H (27.0-32.0) pg MCHC 34.8 (31.0-37.0) g/dL RDW Std Deviation 42.7 (28.0-62.0) fl RDW Coeff of Bibi 13 (11.0-15.0) % Plt Count 223 (150-400) K/uL MPV 9.40 (7.40-12.00) fL Neut % (Auto) 73.6 (48.0-80.0) % Lymph % (Auto) 20.0 (16.0-40.0) % [place] % (Auto) 4.4 (0.0-15.0) % Eos % (Auto) 1.0 (0.0-7.0) % Baso % (Auto) 1.0 (0.0-1.5) % Neut # (Auto) 4.6 (1.4-5.7) K/uL Lymph # (Auto) 1.2 (0.6-2.4) K/uL [place] # (Auto) 0.3 (0.0-0.8) K/uL Eos # (Auto) 0.1 (0.0-0.7) K/uL Baso # (Auto) 0.1 (0.0-0.1) K/uL Nucleated RBC % 0.0 /100WBC Nucleated RBCs # 0 K/uL Sodium 130 L (136-148) mmol/L Potassium 4.3 (3.5-5.1) mmol/L Chloride 94 L (98-107) mmol/L Carbon Dioxide 24.6 (21.0-32.0) mmol/L BUN 6 L (7.0-18.0) mg/dL Creatinine 1.0 (0.8-1.3) mg/dL Est Cr Clr Drug Dosing 89.46 mL/min Estimated GFR (MDRD) > 60.0 ml/min Glucose 170 H (74-106) mg/dL Calcium 8.6 (8.5-10.1) mg/dL Total Bilirubin 0.1 L (0.2-1.0) mg/dL AST 22 (15-37) IU/L ALT 31 (14-63) IU/L Alkaline Phosphatase 86 (46-116) U/L Troponin I < 0.050 (0.000-0.056) ng/mL Total Protein 7.0 (6.4-8.2) g/dL Albumin 3.7 (3.4-5.0) g/dL Globulin 3.3 (2.6-4.0) g/dL Albumin/Globulin Ratio 1.1 (0.9-1.6) Meds: Medications Discontinued Medications Generic Name Dose Route Start Last Admin Trade Name Freq PRN Reason Stop Dose Admin Sodium Chloride 1,000 mls @ 999 mls/hr 04/14/21 10:04 04/14/21 11:48 Normal Saline IV 04/14/21 11:04 999 mls/hr STAT ONE Administration Departure - Departure Time of Disposition: 12:16 Disposition: Home, Self-Care 01 Clinical Impression: Alcohol abuse, Encounter for medical screening examination - Discharge Information Additional Instructions: The following information is given to patients seen in the emergency department who are being discharged to home. This information is to outline your options for follow-up care. We provide all patients seen in our emergency department with a follow-up referral. The need for follow-up, as well as the timing and circumstances, are variable depending upon the specifics of your emergency department visit. If you don't have a primary care physician on staff, we will provide you with a referral. We always advise you to contact your personal physician following an emergency department visit to inform them of the circumstance of the visit and for follow-up with them and/or the need for any referrals to a consulting specialist. The emergency department will also refer you to a specialist when appropriate. This referral assures that you have the opportunity for follow-up care with a sp ecialist. All of these measure are taken in an effort to provide you with optimal care, which includes your follow-up. Under all circumstances we always encourage you to contact your private physicia n who remains a resource for coordinating your care. When calling for follow-up care, please make the office aware that this follow-up is from your recent emergency room visit. If for any reason you are refused follow-up, please contact the [facility] Emergency Department at and asked to speak to the emergency department charge nurse. [facility] [address] [place] [address] [facility] [address] [place] [id number] Thank you for choosing the [facility] emergency department in [place] for your medical needs today. It was a pleasure caring for you. Today you were seen in the emergency department for medical screening exam 1. You were evaluated today on an emergent basis. 2. You can alternate Tylenol and ibuprofen as needed for pain and fever management. 3. We encourage you to follow up with your primary care provider and/or recommended specialist in the next few days for re-evaluation and further care/management. 4. If your symptoms should worsen, new symptoms develop or any of the signs and symptoms we discussed should arise please return to the emergency room or call 911 (if needed). Sepsis Event Note (ED) - Focused Exam Vital Signs: Vital Signs Temp Pulse Resp BP Pulse Ox 04/14/21 10:16 97.8 F 92 19 114/73 95 - My Orders Last 24 Hours: My Active Orders 04/14/21 10:00 UA RFX CLARICE AND CULT IF INDIC [URIN] Stat - Assessment/Plan Last 24 Hours: My Active Orders 04/14/21 10:00 UA RFX CLARICE AND CULT IF INDIC [URIN] Stat
[2021-04-14 10:21] VITALS: BP 114/73; PULSE 92
--- NOTE | 2021-04-14 10:52 | CR ---
Indication: Passed out Comparison: Single view chest October 31, 2020 Technique: Single AP view chest Findings: There is hyperinflation and chronic interstitial change. There is mildly increased interstitial markings likely representing mild pulmonary vascular congestion. There is no dense consolidation, effusion, or pneumothorax. The cardiomediastinal silhouette is within normal limits. The bony thorax is grossly intact. Impression: Hyperinflation and chronic interstitial changes with mild pulmonary vascular congestion. Dictated by Ruben Grayson MD @ 04/14/2021 10:51:[address] Ruben Grayson @ Apr 14 2021 10:51AM
--- NOTE | 2021-04-14 11:41 | CT ---
INDICATION: Passed out. Alcohol. TECHNIQUE: CT head without contrast. COMPARISON: 02/04/2021 CT neck FINDINGS: CSF spaces: Within normal limits for age. Brain parenchyma: The miller-white differentiation is normal. No sign of mass, hemorrhage, or midline shift. Skull base and calvarium: The visualized paranasal sinuses and mastoid air cells demonstrate no acute or significant findings. The visualized orbits are grossly unremarkable. No skull fractures. 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 IMPRESSION: No acute intracranial abnormality. Please note that all CT scans at this facility use dose modulation, iterative reconstruction, and/or weight-based dosing when appropriate to reduce radiation dose to as low as reasonably achievable. Dictated by Karthik Rivera MD @ 04/14/2021 11:40:[address] Karthik Rivera @ Apr 14 2021 11:40AM
[2021-04-14 12:06] LABS: BLOOD UREA NITROGEN,BUN 6 mg/dL (7.0-18.0); CARBON DIOXIDE,CO2 24.6 mmol/L (21.0-32.0); CHLORIDE,CL 94 mmol/L (98-107); GLUCOSE RANDOM 170 mg/dL (74-106); POTASSIUM,K 4.3 mmol/L (3.5-5.1); SODIUM,NA 130 mmol/L (136-148)
== END 2021-04-14 12:42 | disposition home or self-care (01) ==
LOC: MW.ED 09:59
DX: F10.10 Alcohol abuse, uncomplicated (principal); E78.00 Pure hypercholesterolemia, unspecified; I10 Essential (primary) hypertension; E11.9 Type 2 diabetes mellitus without complications; E66.9 Obesity, unspecified; Z68.29 Body mass index [BMI] 29.0-29.9, adult; Z79.84 Long term (current) use of oral hypoglycemic drugs; Z79.82 Long term (current) use of aspirin; Z79.899 Other long term (current) drug therapy
CPT/HCPCS: 36415; 70450; 71045; 80053; 84484; 85025; 93005; 99284; J7030

== ENCOUNTER 2021-04-17 06:35 | Emergency (ER) | payer MEDICARE, MEDICAID ==
[2021-04-17] MEDS ORDERED: Sodium Chloride 0.9% 1,000 ML IV ONE ×2 (07:01→08:44)
[2021-04-17] MEDS ORDERED: LORazepam 2 MG/ML SDV IVPUSH ONE ×2 (07:02→08:44)
--- NOTE | 2021-04-17 07:07 | EDM.PDOC ---
ED HPI GENERAL MEDICAL PROBLEM - General Chief Complaint: General Stated Complaint: ANXIETY Time Seen by Provider: 04/17/21 06:58 - History of Present Illness INITIAL COMMENTS - FREE TEXT/NARRATIVE: 55-year-old male history of anxiety presents complaining of anxiety and shaking. He states that he last drank alcohol yesterday and he might be in some withdrawal. Patient has never had seizures from alcohol withdrawal in the past. Patient has been vaccinated against Covid. There is some shortness of breath and chest pain that he gets with things that is anxiety. No history of blood clot. No unilateral leg swelling. No recent travel, injury, cancer, surgery. Positive smoking. No other exacerbating or alleviating factors. Typical of his anxiety symptoms that he has had many times - Related Data Allergies Allergy/AdvReac Type Severity Reaction Status Date / Time No Known Allergies Allergy Verified 04/14/21 10:16 Home Meds: Home Meds Aspirin [Adult Low Dose Aspirin EC] 81 mg PO DAILY 12/30/15 [History] Cholecalciferol (Vitamin D3) [Vitamin D3] 1,000 unit PO DAILY 12/30/15 [History] Glimepiride [Amaryl] 4 mg PO BID 12/30/15 [History] Loratadine [Claritin] 10 mg PO DAILY 12/30/15 [History] Losartan Potassium [Cozaar] 50 mg PO DAILY 12/30/15 [History] Meloxicam 15 mg PO DAILY PRN 12/30/15 [History] SitaGLIPtin [Januvia] 100 mg PO DAILY 12/30/15 [History] atorvaSTATin Calcium [Atorvastatin Calcium] 20 mg PO BEDTIME 12/30/15 [History] metFORMIN HCl [Metformin HCl] 1,000 mg PO BID 12/30/15 [History] Gabapentin [Neurontin] 300 mg PO TID 11/17/16 [History] Hydrochlorothiazide 25 mg PO DAILY 03/15/17 [History] Mirtazapine 45 mg PO BEDTIME 03/30/17 [History] OLANZapine [ZyPREXA] 10 mg PO BID 03/30/17 [History] traZODone HCl [Trazodone HCl] 100 mg PO BEDTIME 03/30/17 [History] amLODIPine [Norvasc] 5 mg PO DAILY 07/26/18 [History] ClonazePAM [KlonoPIN] 0.5 mg PO TID 01/15/19 [History] Albuterol Sulfate [Albuterol Sulfate HFA] 2 puff INH Q4HR PRN 02/04/21 [History] Budesonide/Formoterol [Symbicort 160-4.5 MCG] 2 puff INH BID 02/04/21 [History] Meclizine [Antivert] 25 mg PO DAILY PRN 02/04/21 [History] Nicotine [Nicotine Patch] 21 mg TD DAILY 02/04/21 [History] chlordiazePOXIDE [Librium] 25 mg PO TID PRN #6 cap 04/17/21 [Rx] Past Medical History - Past Health History Medical/Surgical History: Denies Medical/Surgical History HEENT History: Reports: None Cardiovascular History: Reports: High Cholesterol, Hypertension Respiratory History: Reports: None Gastrointestinal History: Reports: None Genitourinary History: Reports: None Musculoskeletal History: Reports: Arthritis Neurological History: Reports: None Psychiatric History: Reports: Anxiety, Depression, Mood Swings, Psych Hospitalization(s), Schizophrenia, Suicidal Ideation Endocrine/Metabolic History: Reports: Diabetes, Type II, Obesity/BMI 30+ Insulin Pump Model and Yeast Fermentation Attendant: None Hematologic History: Reports: None Immunologic History: Reports: None Oncologic (Cancer) History: Reports: None Dermatologic History: Reports: None - Infectious Disease History Infectious Disease History: Reports: Chicken Pox - Past Surgical History Head Surgeries/Procedures: Reports: None HEENT Surgical History: Reports: None Cardiovascular Surgical History: Reports: None GI Surgical History: Reports: Hernia Repair/Other Male Surgical History: Reports: None Endocrine Surgical History: Reports: None Neurological Surgical History: Reports: None Musculoskeletal Surgical History: Reports: None Dermatological Surgical History: Reports: None Social & Family History - Family History Family Medical History: No Pertinent Family History - Caffeine Use Caffeine Use: Reports: Coffee Caffeine Use Comment: 1-2 cups per day - Recreational Drug Use Recreational Drug Use: No - Living Situation & Occupation Living situation: Reports: Alone Occupation: Disabled ED ROS GENERAL - Review of Systems Review Of Systems: Comprehensive ROS is negative, except as noted in HPI. ED EXAM, GENERAL - Physical Exam Exam: See Below Free Text/Narrative:: CONSTITUTIONAL: well appearing in no acute distress SKIN: Warm, dry, and intact without rash HENT: Normocephalic, atraumatic, PULMONARY: clear to ausculation bilaterally. No rales, rhonchi, wheezing CARDIOVASCULAR: Cardia no murmurs or rubs or gallops GASTROINTESTINAL: soft, nondistended, nontender NEUROLOGIC: normal speech, II-XII intact. light touch/5/5 power equal and symmetric in upper and lower extremities without deficit. Tremors MUSCULOSKELETAL: no gross deformities, atraumatic PSYCHIATRIC: normal mood and affect #1 Interpretation Time: 07:15 EKG Interpretation Comments: 116, sinus tachycardia, nonspecific ST/T findings Course - Vital Signs Text/Narrative:: Differential diagnosis: Anxiety, alcohol withdrawal, drug use, Covid, dehydration, infection, other Patient presents with anxiety and tremors. Patient does not drink alcohol every day but there is some component that shaking and tachycardia that could be consistent with alcohol withdrawal. Patient given 2 doses of Ativan with IV fluids with marked improvement of symptoms. Patient advised that he will need to slowly wean off alcohol. He will be given Librium and understands not to take this with alcohol. Otherwise supportive care with return precautions and PCP follow-up Last Recorded V/S: Last Vital Signs Temp 36.9 C 04/17/21 06:45 Pulse 105 H 04/17/21 10:00 Resp 20 04/17/21 06:45 BP 149/82 H 04/17/21 10:00 Pulse Ox 95 04/17/21 10:00 - Orders/Labs/Meds Labs: Laboratory Tests 04/17/21 04/17/21 04/17/21 Range/Units 07:00 07:00 07:00 WBC 10.59 (4.0-11.0) K/uL RBC 4.40 L (4.50-5.90) M/uL Hgb 14.3 (13.0-17.0) g/dL Hct 40.2 (38.0-50.0) % MCV 91.4 (80.0-98.0) fL MCH 32.5 H (27.0-32.0) pg MCHC 35.6 (31.0-37.0) g/dL RDW Std Deviation 42.7 (28.0-62.0) fl RDW Coeff of Bibi 13 (11.0-15.0) % Plt Count 291 (150-400) K/uL MPV 9.40 (7.40-12.00) fL Neut % (Auto) 65.4 (48.0-80.0) % Lymph % (Auto) 27.7 (16.0-40.0) % Wythe % (Auto) 5.5 (0.0-15.0) % Eos % (Auto) 0.6 (0.0-7.0) % Baso % (Auto) 0.8 (0.0-1.5) % Neut # (Auto) 6.9 H (1.4-5.7) K/uL Lymph # (Auto) 2.9 H (0.6-2.4) K/uL Wythe # (Auto) 0.6 (0.0-0.8) K/uL Eos # (Auto) 0.1 (0.0-0.7) K/uL Baso # (Auto) 0.1 (0.0-0.1) K/uL Nucleated RBC % 0.0 /100WBC Nucleated RBCs # 0 K/uL Sodium 134 L (136-148) mmol/L Potassium 4.2 (3.5-5.1) mmol/L Chloride 94 L (98-107) mmol/L Carbon Dioxide 21.2 (21.0-32.0) mmol/L BUN 11 (7.0-18.0) mg/dL Creatinine 1.2 (0.8-1.3) mg/dL Est Cr Clr Drug Dosing 74.55 mL/min Estimated GFR (MDRD) > 60.0 ml/min Glucose 137 H (74-106) mg/dL Calcium 8.7 (8.5-10.1) mg/dL Total Bilirubin 0.3 (0.2-1.0) mg/dL AST 40 H (15-37) IU/L ALT 33 (14-63) IU/L Alkaline Phosphatase 92 (46-116) U/L Troponin I < 0.050 (0.000-0.056) ng/mL Total Protein 7.6 (6.4-8.2) g/dL Albumin 4.1 (3.4-5.0) g/dL Globulin 3.5 (2.6-4.0) g/dL Albumin/Globulin Ratio 1.2 (0.9-1.6) Urine Opiates Screen (NEGATIVE) Ur Oxycodone Screen (NEGATIVE) Urine Methadone Screen (NEGATIVE) Ur Barbiturates Screen (NEGATIVE) Ur Phencyclidine Scrn (NEGATIVE) Ur Amphetamine Screen (NEGATIVE) U Methamphetamines Scrn (NEGATIVE) U Benzodiazepines Scrn (NEGATIVE) U Cocaine Metab Screen (NEGATIVE) U Marijuana (THC) Screen (NEGATIVE) Ethyl Alcohol 43 mg/dL 04/17/21 Range/Units 07:40 WBC (4.0-11.0) K/uL RBC (4.50-5.90) M/uL Hgb (13.0-17.0) g/dL Hct (38.0-50.0) % MCV (80.0-98.0) fL MCH (27.0-32.0) pg MCHC (31.0-37.0) g/dL RDW Std Deviation (28.0-62.0) fl RDW Coeff of Bibi (11.0-15.0) % Plt Count (150-400) K/uL MPV (7.40-12.00) fL Neut % (Auto) (48.0-80.0) % Lymph % (Auto) (16.0-40.0) % Wythe % (Auto) (0.0-15.0) % Eos % (Auto) (0.0-7.0) % Baso % (Auto) (0.0-1.5) % Neut # (Auto) (1.4-5.7) K/uL Lymph # (Auto) (0.6-2.4) K/uL Wythe # (Auto) (0.0-0.8) K/uL Eos # (Auto) (0.0-0.7) K/uL Baso # (Auto) (0.0-0.1) K/uL Nucleated RBC % /100WBC Nucleated RBCs # K/uL Sodium (136-148) mmol/L Potassium (3.5-5.1) mmol/L Chloride (98-107) mmol/L Carbon Dioxide (21.0-32.0) mmol/L BUN (7.0-18.0) mg/dL Creatinine (0.8-1.3) mg/dL Est Cr Clr Drug Dosing mL/min Estimated GFR (MDRD) ml/min Glucose (74-106) mg/dL Calcium (8.5-10.1) mg/dL Total Bilirubin (0.2-1.0) mg/dL AST (15-37) IU/L ALT (14-63) IU/L Alkaline Phosphatase (46-116) U/L Troponin I (0.000-0.056) ng/mL Total Protein (6.4-8.2) g/dL Albumin (3.4-5.0) g/dL Globulin (2.6-4.0) g/dL Albumin/Globulin Ratio (0.9-1.6) Urine Opiates Screen NEGATIVE (NEGATIVE) Ur Oxycodone Screen NEGATIVE (NEGATIVE) Urine Methadone Screen NEGATIVE (NEGATIVE) Ur Barbiturates Screen NEGATIVE (NEGATIVE) Ur Phencyclidine Scrn NEGATIVE (NEGATIVE) Ur Amphetamine Screen NEGATIVE (NEGATIVE) U Methamphetamines Scrn NEGATIVE (NEGATIVE) U Benzodiazepines Scrn NEGATIVE (NEGATIVE) U Cocaine Metab Screen NEGATIVE (NEGATIVE) U Marijuana (THC) Screen NEGATIVE (NEGATIVE) Ethyl Alcohol mg/dL Meds: Medications Discontinued Medications Generic Name Dose Route Start Last Admin Trade Name Freq PRN Reason Stop Dose Admin Sodium Chloride 1,000 mls @ 999 mls/hr 04/17/21 07:01 04/17/21 07:13 Normal Saline IV 04/17/21 08:01 999 mls/hr .BOLUS ONE Administration Sodium Chloride 1,000 mls @ 999 mls/hr 04/17/21 08:44 04/17/21 08:50 Normal Saline IV 04/17/21 09:44 999 mls/hr .BOLUS ONE Administration Lorazepam 2 mg 04/17/21 07:02 04/17/21 07:13 Lorazepam 2 Mg/Ml Sdv IVPUSH 04/17/21 07:03 2 mg ONETIME ONE Administration Lorazepam 2 mg 04/17/21 08:44 04/17/21 08:51 Lorazepam 2 Mg/Ml Sdv IVPUSH 04/17/21 08:45 2 mg ONETIME ONE Administration Departure - Departure Time of Disposition: 10:06 Disposition: Home, Self-Care 01 Condition: Good Clinical Impression: Anxiety, Alcohol withdrawal - Discharge Information Instructions: Alcohol Withdrawal Syndrome Referrals: Jp Gaitan MD [Primary Care Provider] - Forms: ED Department Discharge Additional Instructions: Return for fevers, shortness of breath, increased tremors, change or worsening condition or lack of improvement. You can use the Librium as needed to help with alcohol withdrawal. In general he cannot stop alcohol immediately and has to be weaned down. He can use Librium in place of that. Please do not use Librium with the alcohol Sepsis Event Note (ED) - Focused Exam Vital Signs: Vital Signs Temp Pulse Resp BP Pulse Ox 04/17/21 10:00 105 H 149/82 H 95 04/17/21 06:45 36.9 C 130 H 20 145/87 H 96
--- NOTE | 2021-04-17 07:26 | CR ---
INDICATION: Chest pain. TECHNIQUE: Chest 1 view. COMPARISON: 04/14/2021. FINDINGS: Cardiovascular and mediastinum: Heart size and vasculature are normal in caliber and appearance. Mediastinum is within normal limits. Lungs and pleural space: Lungs are clear. There is pulmonary hyperinflation. No sign of infiltrate or mass. No sign of pleural effusion. No pneumothorax. Bones and soft tissues: No significant findings. IMPRESSION: Lungs are clear. Pulmonary hyperinflation is stable from previous. Dictated by Binu Lam MD @ 04/17/2021 7:25:[address] Binu Lam @ Apr 17 2021 7:25AM
[2021-04-17 07:34] LABS: BLOOD UREA NITROGEN,BUN 11 mg/dL (7.0-18.0); CARBON DIOXIDE,CO2 21.2 mmol/L (21.0-32.0); CHLORIDE,CL 94 mmol/L (98-107); GLUCOSE RANDOM 137 mg/dL (74-106); POTASSIUM,K 4.2 mmol/L (3.5-5.1); SODIUM,NA 134 mmol/L (136-148)
[2021-04-17 10:22] VITALS: BP 134/87; PULSE 98
== END 2021-04-17 10:22 | disposition home or self-care (01) ==
LOC: MW.ED 06:35
DX: F41.9 Anxiety disorder, unspecified (principal); F10.230 Alcohol dependence with withdrawal, uncomplicated; Y90.2 Blood alcohol level of 40-59 mg/100 ml; E78.00 Pure hypercholesterolemia, unspecified; I10 Essential (primary) hypertension; E11.9 Type 2 diabetes mellitus without complications; E66.9 Obesity, unspecified; Z79.82 Long term (current) use of aspirin; Z79.899 Other long term (current) drug therapy; Z68.28 Body mass index [BMI] 28.0-28.9, adult
CPT/HCPCS: 36415; 71045; 80053; 80305; 80307; 84484; 85025; 93005; 96374; 96376; 99285; J2060; J7030

== ENCOUNTER 2021-06-20 00:56 | Emergency (ER) | payer MEDICARE, MEDICAID ==
[2021-06-20] MEDS ORDERED: Amoxicillin 500 MG Cap PO ONE (01:31)
[2021-06-20] MEDS ORDERED: Naproxen 500 MG Tab PO ONE (01:31)
--- NOTE | 2021-06-20 01:35 | EDM.PDOC ---
ED HPI GENERAL MEDICAL PROBLEM - General Chief Complaint: ENT Problem Stated Complaint: TOOTHACHE Time Seen by Provider: 06/20/21 01:11 - History of Present Illness INITIAL COMMENTS - FREE TEXT/NARRATIVE: History of present illness: [] Patient has a toothache. Tooth #9 is painful. He has no fever and chills no systemic signs of illness. He has had tooth ache for a week. Review of systems: As per history of present illness and below otherwise all systems reviewed and negative. Past medical history: As per history of present illness and as reviewed below otherwise noncontributory. Surgical history: As per history of present illness and as reviewed below otherwise noncontributory. Social history: No reported history of drug or alcohol abuse. Family history: As per history of present illness and as reviewed below otherwise noncontributory. Physical exam: Constitutional - well developed, well-nourished and in no acute distress HEENT -essentially edentulous with some broken off carious teeth had #9 is one o f the Jose Carlos at the present carious and the gingiva around it is inflamed. He has no trismus or trouble handling secretions and he has a normal voice and no airway embarrassment. Normocephalic, no evidence of trauma - external nose and mouth normal - no mass in neck and no JVD - mucosae moist EYES - full EOM, PERRL, no icterus - no evidence of inflammation, injection, or drainage Respiratory - no respiratory distress, equal bilateral expansion, lungs clear to auscultation and no abnormal lung sounds Cardiovascular - Regular Rhythm with S1 and S2 appreciated and no murmur, gallop or rub. GI - abdomen soft without distension or organomegaly - normal bowel sounds - no guard or rebound Musculoskeletal no gross deformity of long bones or joints - no tenderness, swelling or edema Neurologic - Alert and oriented times four - CN II-XII grossly intact - motor sensory and coordination symmetrically normal Psychiatric - appropriate mood and affect with normal thought content Hematologic - No petechiae or purpura - mucosa appropriate color and sclera not pale - normal nail bed color and refill Integument - no rash or evidence of trauma - normal turgor Diagnostics: [] Therapeutics: [] Impression: [] Plan: [] Definitive disposition and diagnosis as appropriate pending reevaluation and review of above. dental area Pain Score (Numeric/FACES): 10 - Related Data Allergies Allergy/AdvReac Type Severity Reaction Status Date / Time No Known Allergies Allergy Verified 06/20/21 01:08 Home Meds: Home Meds Aspirin [Adult Low Dose Aspirin EC] 81 mg PO DAILY 12/30/15 [History] Cholecalciferol (Vitamin D3) [Vitamin D3] 1,000 unit PO DAILY 12/30/15 [History] Glimepiride [Amaryl] 4 mg PO BID 12/30/15 [History] Loratadine [Claritin] 10 mg PO DAILY 12/30/15 [History] Losartan Potassium [Cozaar] 50 mg PO DAILY 12/30/15 [History] Meloxicam 15 mg PO DAILY PRN 12/30/15 [History] SitaGLIPtin [Januvia] 100 mg PO DAILY 12/30/15 [History] atorvaSTATin Calcium [Atorvastatin Calcium] 20 mg PO BEDTIME 12/30/15 [History] metFORMIN HCl [Metformin HCl] 1,000 mg PO BID 12/30/15 [History] Gabapentin [Neurontin] 300 mg PO TID 11/17/16 [History] Hydrochlorothiazide 25 mg PO DAILY 03/15/17 [History] Mirtazapine 45 mg PO BEDTIME 03/30/17 [History] OLANZapine [ZyPREXA] 10 mg PO BID 03/30/17 [History] traZODone HCl [Trazodone HCl] 100 mg PO BEDTIME 03/30/17 [History] amLODIPine [Norvasc] 5 mg PO DAILY 07/26/18 [History] ClonazePAM [KlonoPIN] 0.5 mg PO TID 01/15/19 [History] Albuterol Sulfate [Albuterol Sulfate HFA] 2 puff INH Q4HR PRN 02/04/21 [History] Budesonide/Formoterol [Symbicort 160-4.5 MCG] 2 puff INH BID 02/04/21 [History] Meclizine [Antivert] 25 mg PO DAILY PRN 02/04/21 [History] Nicotine [Nicotine Patch] 21 mg TD DAILY 02/04/21 [History] chlordiazePOXIDE [Librium] 25 mg PO TID PRN #6 cap 04/17/21 [Rx] Amoxicillin 500 mg PO TID 7 Days #21 capsule 06/20/21 [Rx] Past Medical History - Past Health History Medical/Surgical History: Denies Medical/Surgical History HEENT History: Reports: None Cardiovascular History: Reports: High Cholesterol, Hypertension Respiratory History: Reports: None Gastrointestinal History: Reports: None Genitourinary History: Reports: None Musculoskeletal History: Reports: Arthritis Neurological History: Reports: None Psychiatric History: Reports: Anxiety, Depression, Mood Swings, Psych Hospitalization(s), Schizophrenia, Suicidal Ideation Endocrine/Metabolic History: Reports: Diabetes, Type II, Obesity/BMI 30+ Insulin Pump Model and Warp Spooler: N/A Hematologic History: Reports: None Immunologic History: Reports: None Oncologic (Cancer) History: Reports: None Dermatologic History: Reports: None - Infectious Disease History Infectious Disease History: Reports: Chicken Pox - Past Surgical History Head Surgeries/Procedures: Reports: None HEENT Surgical History: Reports: None Cardiovascular Surgical History: Reports: None GI Surgical History: Reports: Hernia Repair/Other Male Surgical History: Reports: None Endocrine Surgical History: Reports: None Neurological Surgical History: Reports: None Musculoskeletal Surgical History: Reports: None Dermatological Surgical History: Reports: None Social & Family History - Family History Family Medical History: No Pertinent Family History - Caffeine Use Caffeine Use: Reports: Coffee Caffeine Use Comment: 1-2 cups per day - Recreational Drug Use Recreational Drug Use: No - Living Situation & Occupation Living situation: Reports: Alone Occupation: Disabled ED ROS GENERAL - Review of Systems Review Of Systems: Comprehensive ROS is negative, except as noted in HPI. ED EXAM, GENERAL - Physical Exam Exam: See Below Free Text/Narrative:: Physical exam as in the HPI Course - Vital Signs Last Recorded V/S: Last Vital Signs Temp 36.1 C 06/20/21 01:05 Pulse 102 H 06/20/21 01:05 Resp 18 06/20/21 01:05 BP 165/93 H 06/20/21 01:05 Pulse Ox 95 06/20/21 01:05 - Orders/Labs/Meds Orders: Active Orders 24 hr Category Date Time Status Naproxen [Naprosyn] Med 06/20/21 01:31 Once 500 mg PO ONETIME ONE Meds: Medications Discontinued Medications Generic Name Dose Route Start Last Admin Trade Name Freq PRN Reason Stop Dose Admin Amoxicillin 500 mg 06/20/21 01:31 Amoxicillin 500 Mg Cap PO 06/20/21 01:32 ONETIME ONE Departure - Departure Time of Disposition: 01:33 Disposition: Home, Self-Care 01 Condition: Good Clinical Impression: Dentalgia, Gingivitis - Discharge Information Instructions: Dental Pain, Gingivitis, [id number] Referrals: Jp Gaitan MD [Primary Care Provider] - Additional Instructions: See dentist today. [facility] [address] [place] [id number] [address] The following information is given to patients seen in the emergency department who are being discharged to home. This information is to outline your options for follow-up care. We provide all patients seen in our emergency department with a follow-up referral. The need for follow-up, as well as the timing and circumstances, are variable depending upon the specifics of your emergency department visit. If you don't have a primary care physician on staff, we will provide you with a referral. We always advise you to contact your personal physician following an emergency department visit to inform them of the circumstance of the visit and for follow-up with them and/or the need for any referrals to a consulting specialist. The emergency department will also refer you to a specialist when appropriate. This referral assures that you have the opportunity for follow-up care with a specialist. All of these measure are taken in an effort to provide you with optimal care, which includes your follow-up. Under all circumstances we always encourage you to contact your private physician who remains a resource for coordinating your care. When calling for follow-up care, please make the office aware that this follow-up is from your recent emergency room visit. If for any reason you are refused follow-up, please contact the [facility] Emergency Department at and asked to speak to the emergency department charge nurse. Sepsis Event Note (ED) - Evaluation Sepsis Screening Result: No Definite Risk - Focused Exam Vital Signs: Vital Signs Temp Pulse Resp BP Pulse Ox 06/20/21 01:05 36.1 C 102 H 18 165/93 H 95 - My Orders Last 24 Hours: My Active Orders 06/20/21 01:31 Naproxen [Naprosyn] 500 mg PO ONETIME ONE - Assessment/Plan Last 24 Hours: My Active Orders 06/20/21 01:31 Naproxen [Naprosyn] 500 mg PO ONETIME ONE
[2021-06-20 01:53] VITALS: BP 161/92; PULSE 100
== END 2021-06-20 01:53 | disposition home or self-care (01) ==
LOC: MW.ED 00:56
DX: K05.10 Chronic gingivitis, plaque induced (principal); K02.9 Dental caries, unspecified; E78.00 Pure hypercholesterolemia, unspecified; I10 Essential (primary) hypertension; M19.90 Unspecified osteoarthritis, unspecified site; E11.9 Type 2 diabetes mellitus without complications; E66.9 Obesity, unspecified; Z68.29 Body mass index [BMI] 29.0-29.9, adult; Z79.82 Long term (current) use of aspirin; Z79.84 Long term (current) use of oral hypoglycemic drugs; Z79.899 Other long term (current) drug therapy
CPT/HCPCS: 99282; A9270

== ENCOUNTER 2021-09-21 13:45 | Emergency (ER) | payer MEDICARE, MEDICAID ==
[2021-09-21] MEDS ORDERED: Sodium Chloride 0.9% 2.5 ML Syringe FLUSH PRN (14:04)
[2021-09-21] MEDS ORDERED: Sodium Chloride 0.9% 10 ML Syringe FLUSH PRN (14:04)
[2021-09-21] MEDS ORDERED: Thiamine 100 MG Tab PO ONE (14:05)
[2021-09-21] MEDS ORDERED: Folic Acid 1 MG Tab PO ONE (14:05)
[2021-09-21 15:01] LABS: BLOOD UREA NITROGEN,BUN 7 mg/dL (7.0-18.0); CARBON DIOXIDE,CO2 28.2 mmol/L (21.0-32.0); CHLORIDE,CL 96 mmol/L (98-107); GLUCOSE RANDOM 57 mg/dL (74-106); SODIUM,NA 133 mmol/L (136-148)
[2021-09-21] MEDS ORDERED: Sodium Chloride 0.9% 1,000 ML IV ONE (15:12)
[2021-09-21 16:31] VITALS: BP 129/71; PULSE 87
== END 2021-09-21 16:30 | disposition home or self-care (01) ==
LOC: MW.ED 13:45
DX: E87.1 Hypo-osmolality and hyponatremia (principal); I10 Essential (primary) hypertension; E11.9 Type 2 diabetes mellitus without complications; E78.00 Pure hypercholesterolemia, unspecified; E66.9 Obesity, unspecified; Z68.34 Body mass index [BMI] 34.0-34.9, adult; Z79.82 Long term (current) use of aspirin; Z79.899 Other long term (current) drug therapy
CPT/HCPCS: 36415; 71045; 80053; 80307; 83735; 85025; 93005; 99284; A9270; J7030

== ENCOUNTER 2021-10-20 08:43 | Emergency (ER) | payer MEDICARE, MEDICAID ==
[2021-10-20 08:56] VITALS: BP 132/85; PULSE 93
== END 2021-10-20 09:36 | disposition home or self-care (01) ==
LOC: MW.ED 08:43
DX: R10.31 Right lower quadrant pain (principal); R10.32 Left lower quadrant pain; R10.814 Left lower quadrant abdominal tenderness; R10.813 Right lower quadrant abdominal tenderness; E78.00 Pure hypercholesterolemia, unspecified; I10 Essential (primary) hypertension; E11.9 Type 2 diabetes mellitus without complications; J45.909 Unspecified asthma, uncomplicated; E66.9 Obesity, unspecified; Z68.28 Body mass index [BMI] 28.0-28.9, adult; Z79.82 Long term (current) use of aspirin; Z79.899 Other long term (current) drug therapy
CPT/HCPCS: 99282; 99284

== ENCOUNTER 2021-10-20 10:20 | Emergency (ER) | payer MEDICARE, MEDICAID ==
[2021-10-20] MEDS ORDERED: Sodium Chloride 0.9% 1,000 ML IV ONE (10:25)
[2021-10-20 11:12] LABS: BLOOD UREA NITROGEN,BUN 8 mg/dL (7.0-18.0); CARBON DIOXIDE,CO2 28.5 mmol/L (21.0-32.0); CHLORIDE,CL 95 mmol/L (98-107); GLUCOSE RANDOM 121 mg/dL (74-106); LIPASE 48 U/L (73-393); POTASSIUM,K 4.5 mmol/L (3.5-5.1); SODIUM,NA 135 mmol/L (136-148)
[2021-10-20 11:57] VITALS: BP 119/86; PULSE 87
== END 2021-10-20 11:54 | disposition home or self-care (01) ==
LOC: MW.ED 10:20
DX: R10.31 Right lower quadrant pain (principal); R10.32 Left lower quadrant pain; E78.00 Pure hypercholesterolemia, unspecified; I10 Essential (primary) hypertension; E11.9 Type 2 diabetes mellitus without complications; E66.9 Obesity, unspecified; Z68.30 Body mass index [BMI] 30.0-30.9, adult; Z79.82 Long term (current) use of aspirin; Z79.899 Other long term (current) drug therapy; Z79.84 Long term (current) use of oral hypoglycemic drugs
CPT/HCPCS: 80053; 81003; 83690; 85025; 99284; J7030

== ENCOUNTER 2022-01-03 09:53 | Emergency (ER) | payer MEDICARE, MEDICAID ==
[2022-01-03] MEDS ORDERED: LORazepam 1 MG Tab PO ONE (10:06)
[2022-01-03 10:37] VITALS: BP 125/79; PULSE 81
== END 2022-01-03 10:37 | disposition home or self-care (01) ==
LOC: MW.ED 09:53
DX: F41.9 Anxiety disorder, unspecified (principal); E78.00 Pure hypercholesterolemia, unspecified; I10 Essential (primary) hypertension; E11.9 Type 2 diabetes mellitus without complications; E66.9 Obesity, unspecified; Z68.28 Body mass index [BMI] 28.0-28.9, adult; Z79.82 Long term (current) use of aspirin; Z79.84 Long term (current) use of oral hypoglycemic drugs; Z79.899 Other long term (current) drug therapy
CPT/HCPCS: 99283; A9270

== ENCOUNTER 2022-02-07 08:18 | Emergency (ER) | payer MEDICARE, MEDICAID ==
[2022-02-07 09:11] VITALS: BP 141/79; PULSE 83
== END 2022-02-07 09:11 | disposition home or self-care (01) ==
LOC: MW.ED 08:18
DX: L60.8 Other nail disorders (principal); I10 Essential (primary) hypertension; E78.00 Pure hypercholesterolemia, unspecified; E11.9 Type 2 diabetes mellitus without complications; E66.9 Obesity, unspecified; Z68.36 Body mass index [BMI] 36.0-36.9, adult; Z79.84 Long term (current) use of oral hypoglycemic drugs; Z79.82 Long term (current) use of aspirin; Z79.899 Other long term (current) drug therapy
CPT/HCPCS: 99282

== ENCOUNTER 2022-03-19 06:37 | Emergency (ER) | payer MEDICARE, MEDICAID ==
[2022-03-19 07:12] VITALS: BP 136/76
[2022-03-19] MEDS ORDERED: hydrOXYzine HCl 25 MG Tab PO ONE (07:25)
[2022-03-19] MEDS ORDERED: LORazepam 0.5 MG Tab PO ONE (07:25)
[2022-03-19 08:38] VITALS: PULSE 73
== END 2022-03-19 08:30 | disposition home or self-care (01) ==
LOC: MW.ED 06:37
DX: F41.9 Anxiety disorder, unspecified (principal); J45.909 Unspecified asthma, uncomplicated; I10 Essential (primary) hypertension; E11.9 Type 2 diabetes mellitus without complications; E66.9 Obesity, unspecified; Z68.25 Body mass index [BMI] 25.0-25.9, adult; Z79.899 Other long term (current) drug therapy; Z79.82 Long term (current) use of aspirin
CPT/HCPCS: 99283; A9270

== ENCOUNTER 2022-06-16 12:24 | Emergency (ER) | payer MEDICARE, MEDICAID ==
[2022-06-16 13:47] LABS: CARBON DIOXIDE,CO2 27.5 mmol/L (21.0-32.0); POTASSIUM,K 4.8 mmol/L (3.5-5.1)
[2022-06-16] MEDS ORDERED: Sodium Chloride 0.9% 10 ML Syringe FLUSH PRN (14:10)
[2022-06-16] MEDS ORDERED: Sodium Chloride 0.9% 1,000 ML IV ONE (14:10)
[2022-06-16] MEDS ORDERED: Sodium Chloride 0.9% 2.5 ML Syringe FLUSH PRN (14:10)
[2022-06-16 15:18] VITALS: BP 132/68; PULSE 84
== END 2022-06-16 15:17 | disposition home or self-care (01) ==
LOC: MW.ED 12:24
DX: R07.89 Other chest pain (principal); E87.1 Hypo-osmolality and hyponatremia; I10 Essential (primary) hypertension; E78.00 Pure hypercholesterolemia, unspecified; E11.9 Type 2 diabetes mellitus without complications; Z79.899 Other long term (current) drug therapy
CPT/HCPCS: 36415; 71045; 80053; 83690; 84443; 84484; 85025; 93005; 96360; 99285; J3490; J7030; 93010; 99283

== ENCOUNTER 2022-07-20 06:03 | Emergency (ER) | payer MEDICARE, MEDICAID ==
[2022-07-20 06:54] LABS: CARBON DIOXIDE,CO2 29.4 mmol/L (21.0-32.0); POTASSIUM,K 3.9 mmol/L (3.5-5.1)
[2022-07-20 07:09] LABS: CORONAVIRUS COVID-19 NAA NEGATIVE (NEGATIVE); INFLUENZA A NAA NEGATIVE (NEGATIVE); INFLUENZA B NAA NEGATIVE (NEGATIVE); RESPIRATORY SYNCYTIAL VIR NAA NEGATIVE (NEGATIVE)
[2022-07-20 07:37] VITALS: BP 155/68; PULSE 86
== END 2022-07-20 08:07 | disposition home or self-care (01) ==
LOC: MW.ED 06:03
DX: R63.0 Anorexia (principal); E78.00 Pure hypercholesterolemia, unspecified; I10 Essential (primary) hypertension; F17.210 Nicotine dependence, cigarettes, uncomplicated; Z79.82 Long term (current) use of aspirin; Z79.899 Other long term (current) drug therapy; Z79.84 Long term (current) use of oral hypoglycemic drugs; Z20.822 Contact with and (suspected) exposure to COVID-19
CPT/HCPCS: 0241U; 36415; 80053; 85025; 93005; 99284

== ENCOUNTER 2022-07-29 15:51 | Emergency (ER) | payer MEDICARE, MEDICAID ==
[2022-07-29 16:00] VITALS: BP 156/93; PULSE 85
[2022-07-29] MEDS ORDERED: OLANZapine 5 MG Tab.DIS PO ONE (16:11)
[2022-07-29 16:49] LABS: ACETAMINOPHEN <2.0 ug/mL; BLOOD UREA NITROGEN,BUN 7 mg/dL (7.0-18.0); CARBON DIOXIDE,CO2 29.2 mmol/L (21.0-32.0); CHLORIDE,CL 92 mmol/L (98-107); GLUCOSE RANDOM 81 mg/dL (74-106); POTASSIUM,K 4.6 mmol/L (3.5-5.1); SODIUM,NA 129 mmol/L (136-148)
[2022-07-29 17:01] LABS: ESTIMATED GFR 87 mL/min (>60)
== END 2022-07-29 19:40 | disposition left against medical advice (07) ==
LOC: MW.ED 15:51
DX: R42 Dizziness and giddiness (principal); F20.9 Schizophrenia, unspecified; I10 Essential (primary) hypertension; E11.9 Type 2 diabetes mellitus without complications; E78.00 Pure hypercholesterolemia, unspecified; E66.9 Obesity, unspecified; Z79.82 Long term (current) use of aspirin; Z79.899 Other long term (current) drug therapy; Z79.84 Long term (current) use of oral hypoglycemic drugs; Z68.25 Body mass index [BMI] 25.0-25.9, adult
CPT/HCPCS: 36415; 80053; 80143; 80179; 80305; 80307; 85025; 93005; 99284; A9270

== ENCOUNTER 2022-08-03 20:38 | Emergency (ER) | payer MEDICARE, MEDICAID ==
[2022-08-03] MEDS ORDERED: Sodium Chloride 0.9% 1,000 ML IV ONE (20:47)
[2022-08-03 20:53] VITALS: BP 115/62; PULSE 92
== END 2022-08-03 21:30 | disposition left against medical advice (07) ==
LOC: MW.ED 20:38
DX: R42 Dizziness and giddiness (principal); E78.00 Pure hypercholesterolemia, unspecified; I10 Essential (primary) hypertension; J45.909 Unspecified asthma, uncomplicated; M19.90 Unspecified osteoarthritis, unspecified site; E11.9 Type 2 diabetes mellitus without complications; E66.9 Obesity, unspecified; Z68.25 Body mass index [BMI] 25.0-25.9, adult; Z79.82 Long term (current) use of aspirin; Z79.84 Long term (current) use of oral hypoglycemic drugs; Z79.899 Other long term (current) drug therapy; Z53.29 Procedure and treatment not carried out because of patient's decision for other reasons
CPT/HCPCS: 99283

== ENCOUNTER 2022-09-16 21:09 | Emergency (ER) | payer MEDICARE, MEDICAID ==
[2022-09-16 21:15] VITALS: BP 150/89; PULSE 102
[2022-09-16] MEDS ORDERED: Sodium Chloride 0.9% 1,000 ML IV ONE (21:17)
[2022-09-16 22:35] LABS: CORONAVIRUS COVID-19 NAA NEGATIVE (NEGATIVE); INFLUENZA A NAA NEGATIVE (NEGATIVE); INFLUENZA B NAA NEGATIVE (NEGATIVE)
[2022-09-16 22:38] LABS: BLOOD UREA NITROGEN,BUN 6 mg/dL (7.0-18.0); CARBON DIOXIDE,CO2 28.2 mmol/L (21.0-32.0); CHLORIDE,CL 89 mmol/L (98-107); GLUCOSE RANDOM 45 mg/dL (74-106); SODIUM,NA 128 mmol/L (136-148)
[2022-09-16 22:44] LABS: ESTIMATED GFR 98 mL/min (>60)
== END 2022-09-16 23:20 | disposition home or self-care (01) ==
LOC: MW.ED 21:09
DX: R42 Dizziness and giddiness (principal); E78.00 Pure hypercholesterolemia, unspecified; I10 Essential (primary) hypertension; J45.909 Unspecified asthma, uncomplicated; E11.9 Type 2 diabetes mellitus without complications; E66.9 Obesity, unspecified; Z68.29 Body mass index [BMI] 29.0-29.9, adult; Z79.82 Long term (current) use of aspirin; Z79.84 Long term (current) use of oral hypoglycemic drugs; Z79.899 Other long term (current) drug therapy; Z20.822 Contact with and (suspected) exposure to COVID-19
CPT/HCPCS: 0240U; 36415; 71045; 80053; 80307; 81001; 83735; 84484; 85025; 93005; 96360; 99285; J7030; 93010; 99283

== ENCOUNTER 2022-10-02 13:18 | Emergency (ER) | payer MEDICARE, MEDICAID ==
[2022-10-02 13:27] VITALS: PULSE 91
[2022-10-02 14:37] LABS: CARBON DIOXIDE,CO2 28.1 mmol/L (21.0-32.0); POTASSIUM,K 4.4 mmol/L (3.5-5.1)
[2022-10-02 15:16] VITALS: BP 144/83
== END 2022-10-02 15:16 | disposition home or self-care (01) ==
LOC: MW.ED 13:18
DX: E87.1 Hypo-osmolality and hyponatremia (principal); E78.00 Pure hypercholesterolemia, unspecified; I10 Essential (primary) hypertension; J45.909 Unspecified asthma, uncomplicated; M19.90 Unspecified osteoarthritis, unspecified site; E11.9 Type 2 diabetes mellitus without complications; E66.9 Obesity, unspecified; Z68.28 Body mass index [BMI] 28.0-28.9, adult; Z72.0 Tobacco use; Z79.82 Long term (current) use of aspirin; Z79.84 Long term (current) use of oral hypoglycemic drugs; Z79.899 Other long term (current) drug therapy
CPT/HCPCS: 36415; 80048; 84484; 85025; 93005; 93010; 99283; 99284

== ENCOUNTER 2022-11-20 14:28 | Emergency (ER) | payer MEDICARE, MEDICAID | END 2022-11-20 16:12 | disposition left against medical advice (07) | LOC: MW.ED 14:28 | DX: Z53.21 Procedure and treatment not carried out due to patient leaving prior to being seen by health care provider (principal) ==

== ENCOUNTER 2022-12-22 19:31 | Emergency (ER) | payer MEDICARE, MEDICAID ==
[2022-12-22] MEDS ORDERED: Sodium Chloride 0.9% 10 ML Syringe FLUSH PRN (19:41)
[2022-12-22] MEDS ORDERED: Thiamine 200 MG/2 ML MDV IVPUSH ONE (19:41)
[2022-12-22] MEDS ORDERED: Sodium Chloride 0.9% 20 ML SDV IV PRN (19:41)
[2022-12-22] MEDS ORDERED: Sodium Chloride 0.9% 2.5 ML Syringe FLUSH PRN (19:41)
[2022-12-22] MEDS ORDERED: Multivitamin Tab PO ONE (19:41)
[2022-12-22] MEDS ORDERED: LORazepam 2 MG/ML SDV IVPUSH ONE (19:41)
[2022-12-22 19:44] VITALS: PULSE 89
[2022-12-22 20:46] LABS: ACETAMINOPHEN <2.0 ug/mL; BLOOD UREA NITROGEN,BUN 4 mg/dL (7.0-18.0); CARBON DIOXIDE,CO2 27.9 mmol/L (21.0-32.0); CHLORIDE,CL 87 mmol/L (98-107); GLUCOSE RANDOM 46 mg/dL (74-106); POTASSIUM,K 3.7 mmol/L (3.5-5.1); SODIUM,NA 125 mmol/L (136-148)
[2022-12-22 20:52] LABS: ESTIMATED GFR 98 mL/min (>60)
[2022-12-22] MEDS ORDERED: Sodium Chloride 0.9% 1,000 ML IV ONE ×2 (21:10→21:13)
[2022-12-22] MEDS ORDERED: 25% Dextrose in Water 10 ML Syringe IVPUSH ONE (21:59)
[2022-12-22] MEDS ORDERED: 50% Dextrose in Water 50 ML Syringe ONE (22:01)
[2022-12-22] MEDS ORDERED: 50% Dextrose in Water 50 ML Syringe IVPUSH STA (22:05)
[2022-12-23 00:41] VITALS: BP 128/75
== END 2022-12-22 23:30 | disposition home or self-care (01) ==
LOC: MW.ED 19:31
DX: E11.649 Type 2 diabetes mellitus with hypoglycemia without coma (principal); G93.41 Metabolic encephalopathy; E87.1 Hypo-osmolality and hyponatremia; J45.909 Unspecified asthma, uncomplicated; E78.00 Pure hypercholesterolemia, unspecified; I10 Essential (primary) hypertension; E66.9 Obesity, unspecified; Z79.82 Long term (current) use of aspirin; Z79.899 Other long term (current) drug therapy; Z68.1 Body mass index [BMI] 19.9 or less, adult
CPT/HCPCS: 36415; 70450; 80053; 80143; 80156; 80164; 80179; 80184; 80185; 80305; 80307; 82947; 83735; 85025; 96361; 96374; 96375; 99285; A9270; J2060; J3411; J3490; J7030; 99284

== ENCOUNTER 2023-02-11 00:58 | Emergency (ER) | payer MEDICARE, MEDICAID ==
[2023-02-11 02:54] VITALS: BP 135/81; PULSE 77
== END 2023-02-11 02:54 | disposition home or self-care (01) ==
LOC: MW.ED 00:58
DX: L60.8 Other nail disorders (principal); I10 Essential (primary) hypertension; J45.909 Unspecified asthma, uncomplicated; E11.9 Type 2 diabetes mellitus without complications; E66.9 Obesity, unspecified; F17.210 Nicotine dependence, cigarettes, uncomplicated; Z68.24 Body mass index [BMI] 24.0-24.9, adult; Z79.84 Long term (current) use of oral hypoglycemic drugs; Z79.82 Long term (current) use of aspirin; Z79.899 Other long term (current) drug therapy
CPT/HCPCS: 99282; 99283

== ENCOUNTER 2023-03-19 13:56 | Emergency (ER) | payer MEDICARE, MEDICAID ==
[2023-03-19] MEDS ORDERED: Sodium Chloride 0.9% 1,000 ML IV ONE (14:57)
[2023-03-19] MEDS ORDERED: Sodium Chloride 0.9% 2.5 ML Syringe FLUSH PRN (14:57)
[2023-03-19] MEDS ORDERED: Sodium Chloride 0.9% 10 ML Syringe FLUSH PRN (14:57)
[2023-03-19] MEDS ORDERED: Metoclopramide 10 MG/2 ML SDV IVPUSH ONE (14:57)
[2023-03-19] MEDS ORDERED: diphenhydrAMINE 50 MG/ML SDV IVPUSH ONE (14:57)
[2023-03-19 15:31] LABS: BASOPHILS PERCENT AUTO 0.4 % (0.0-1.5); EOSINOPHILS ABSOLUTE AUTO 0.1 K/uL (0.0-0.7); EOSINOPHILS PERCENT AUTO 0.7 % (0.0-7.0); HEMATOCRIT 35.3 % (38.0-50.0); HEMOGLOBIN 12.4 g/dL (13.0-17.0); LYMPHOCYTES PERCENT AUTO 24.5 % (16.0-40.0); MEAN CORPUSCULAR HEMOGLOBIN 31.2 pg (27.0-32.0); MEAN CORPUSCULAR HGB CONC 35.1 g/dL (31.0-37.0); MEAN CORPUSCULAR VOLUME 88.7 fL (80.0-98.0); MONOCYTES ABSOLUTE AUTO 0.6 K/uL (0.0-0.8); MONOCYTES PERCENT AUTO 7.5 % (0.0-15.0); NEUTROPHILS ABSOLUTE AUTO 5.5 K/uL (1.4-5.7); NEUTROPHILS PERCENT AUTO 66.9 % (48.0-80.0); NRBC ABSOLUTE 0 K/uL; PLATELET COUNT,PLT 222 K/uL (150-400); RED BLOOD CELL COUNT 3.98 M/uL (4.50-5.90); WHITE BLOOD CELL COUNT,WBC 8.28 K/uL (4.0-11.0)
[2023-03-19 15:48] LABS: INR 1.08 (0.86-1.11)
[2023-03-19 16:01] LABS: A/G RATIO 1.2 (0.9-1.6); BILIRUBIN TOTAL 0.3 mg/dL (0.2-1.0); CALCIUM 9.2 mg/dL (8.5-10.1); CARBON DIOXIDE,CO2 25.3 mmol/L (21.0-32.0); CREATININE 0.9 mg/dL (0.8-1.3); PROTEIN TOTAL,TP 7.4 g/dL (6.4-8.2)
[2023-03-19] MEDS ORDERED: Acetaminophen 325 MG Tab PO ONE (16:37)
[2023-03-19 17:06] VITALS: BP 141/78; PULSE 79
== END 2023-03-19 17:04 | disposition home or self-care (01) ==
LOC: MW.ED 13:56
DX: E87.1 Hypo-osmolality and hyponatremia (principal); I10 Essential (primary) hypertension; J44.9 Chronic obstructive pulmonary disease, unspecified; M19.90 Unspecified osteoarthritis, unspecified site; E11.9 Type 2 diabetes mellitus without complications; F17.210 Nicotine dependence, cigarettes, uncomplicated; Z79.82 Long term (current) use of aspirin; Z79.84 Long term (current) use of oral hypoglycemic drugs; Z79.899 Other long term (current) drug therapy
CPT/HCPCS: 36415; 70450; 80053; 84484; 85025; 85610; 93005; 96361; 96374; 96375; 99284; A9270; J1200; J2765; J3490; J7030; 93010

== ENCOUNTER 2023-04-13 11:54 | Emergency (ER) | payer MEDICARE, MEDICAID ==
[2023-04-13] MEDS ORDERED: Ketorolac 30 MG/ML SDV IVPUSH ONE (12:02)
[2023-04-13] MEDS ORDERED: Ondansetron 4 MG/2 ML SDV IVPUSH ONE (12:02)
[2023-04-13] MEDS ORDERED: Sodium Chloride 0.9% 1,000 ML IV ONE (12:02)
[2023-04-13 12:59] LABS: BASOPHILS PERCENT AUTO 0.3 % (0.0-1.5); EOSINOPHILS PERCENT AUTO 0.3 % (0.0-7.0); HEMATOCRIT 35.6 % (38.0-50.0); HEMOGLOBIN 12.6 g/dL (13.0-17.0); LYMPHOCYTES ABSOLUTE AUTO 1.8 K/uL (0.6-2.4); LYMPHOCYTES PERCENT AUTO 20.9 % (16.0-40.0); MEAN CORPUSCULAR HEMOGLOBIN 31.6 pg (27.0-32.0); MEAN CORPUSCULAR HGB CONC 35.4 g/dL (31.0-37.0); MEAN CORPUSCULAR VOLUME 89.2 fL (80.0-98.0); MONOCYTES ABSOLUTE AUTO 0.5 K/uL (0.0-0.8); MONOCYTES PERCENT AUTO 6.3 % (0.0-15.0); NEUTROPHILS ABSOLUTE AUTO 6.2 K/uL (1.4-5.7); NEUTROPHILS PERCENT AUTO 72.2 % (48.0-80.0); NRBC ABSOLUTE 0 K/uL; PLATELET COUNT,PLT 171 K/uL (150-400); RED BLOOD CELL COUNT 3.99 M/uL (4.50-5.90); WHITE BLOOD CELL COUNT,WBC 8.64 K/uL (4.0-11.0)
[2023-04-13 13:46] LABS: APPEARANCE,URINE CLEAR; BILIRUBIN,URINE NEGATIVE (NEGATIVE); COLOR,URINE YELLOW; GLUCOSE,URINE NEGATIVE (NEGATIVE); KETONES,URINE TRACE mg/dL (NEGATIVE); LEUKOCYTE ESTERASE,URINE NEGATIVE (NEGATIVE); NITRITE,URINE NEGATIVE (NEGATIVE); OCCULT BLOOD,URINE NEGATIVE (NEGATIVE); PROTEIN,URINE NEGATIVE (NEGATIVE); UROBILINOGEN,URINE 0.2 EU/dL (<2.0)
[2023-04-13 13:59] LABS: A/G RATIO 1.3 (0.9-1.6); ALBUMIN 3.9 g/dL (3.4-5.0); BILIRUBIN TOTAL 0.3 mg/dL (0.2-1.0); CALCIUM 9.6 mg/dL (8.5-10.1); CARBON DIOXIDE,CO2 30.1 mmol/L (21.0-32.0); CREATININE 1.1 mg/dL (0.8-1.3); EST CRCL DRUG DOSING (CG) 79.36 mL/min; POTASSIUM,K 5.4 mmol/L (3.5-5.1); PROTEIN TOTAL,TP 6.9 g/dL (6.4-8.2)
[2023-04-13] MEDS ORDERED: Iopamidol 755 Mg/ML 100 ML Bottle IVPUSH ONE (15:07)
[2023-04-13 16:05] VITALS: BP 129/69; PULSE 75
== END 2023-04-13 16:55 | disposition home or self-care (01) ==
LOC: MW.ED 11:54
DX: K52.9 Noninfective gastroenteritis and colitis, unspecified (principal); E78.00 Pure hypercholesterolemia, unspecified; I10 Essential (primary) hypertension; E11.9 Type 2 diabetes mellitus without complications; F17.210 Nicotine dependence, cigarettes, uncomplicated; Z79.82 Long term (current) use of aspirin; Z79.899 Other long term (current) drug therapy; Z79.84 Long term (current) use of oral hypoglycemic drugs
CPT/HCPCS: 36415; 74177; 80053; 80307; 81003; 82947; 83690; 84484; 85025; 93005; 96361; 96374; 96375; 99284; J1885; J2405; J7030; Q9967; 93010

== ENCOUNTER 2023-04-13 16:56 | Emergency (ER) | payer MEDICARE, MEDICAID ==
[2023-04-13] MEDS ORDERED: Morphine 2 MG/ML SYRINGE IVPUSH ONE ×2 (19:12→21:26)
[2023-04-13 20:40] VITALS: BP 147/78; PULSE 76
== END 2023-04-13 22:05 ==
LOC: MW.ED 16:56
DX: S72.001A Fracture of unspecified part of neck of right femur, initial encounter for closed fracture (principal); R53.1 Weakness; E78.00 Pure hypercholesterolemia, unspecified; I10 Essential (primary) hypertension; J45.909 Unspecified asthma, uncomplicated; E11.9 Type 2 diabetes mellitus without complications; Z79.899 Other long term (current) drug therapy; Z79.84 Long term (current) use of oral hypoglycemic drugs; Z79.82 Long term (current) use of aspirin; W18.30XA Fall on same level, unspecified, initial encounter
CPT/HCPCS: 72192; 96374; 96376; 99284; J2270; 99285

== ENCOUNTER 2025-07-10 11:08 | Emergency (ER) | payer MEDICARE, MEDICAID ==
[2025-07-10] MEDS ORDERED: Sodium Chloride 0.9% 2.5 ML Syringe FLUSH PRN (12:35)
[2025-07-10] MEDS ORDERED: Sodium Chloride 0.9% 10 ML Syringe FLUSH PRN (12:35)
[2025-07-10] MEDS: Ketorolac 30 MG/ML SDV IVPUSH ONE (12:59)
[2025-07-10] MEDS: Ondansetron 4 MG/2 ML SDV IVPUSH ONE (13:00)
[2025-07-10] MEDS: diphenhydrAMINE 50 MG/ML SDV IVPUSH ONE (13:00)
[2025-07-10 14:27] VITALS: BP 124/82; PULSE 74
== END 2025-07-10 14:27 | disposition home or self-care (01) ==
LOC: MW.ED 11:08
DX: G44.209 Tension-type headache, unspecified, not intractable (principal); I10 Essential (primary) hypertension; E11.9 Type 2 diabetes mellitus without complications; E78.00 Pure hypercholesterolemia, unspecified; F17.200 Nicotine dependence, unspecified, uncomplicated; J45.909 Unspecified asthma, uncomplicated; Z79.899 Other long term (current) drug therapy
CPT/HCPCS: 70450; 96374; 96375; 99284; J1200; J2405; J7030; 99283; J1885